=== PATIENT | male | born 1965 | race Caucasian/White ===

== ENCOUNTER 2020-09-11 23:56 | Inpatient (IN) | payer MEDICAID, SELFPAY ==
[~2020-09-11] VITALS: Ht 180.3 cm; Wt 78.5 kg
[2020-09-11 23:58] VITALS: BP 140/83
--- NOTE | 2020-09-12 00:16 | NUR ---
Patient appears to be resting comfortably in bed, RASS -3. Vital Signs within normal limits. Respirations even and unlabored. HOB up @ 30 degrees. Bed locked and in lowest position.
--- NOTE | 2020-09-12 00:20 | NUR ---
PT BOONE ALS. TAKEN TO BED 10
--- NOTE | 2020-09-12 00:22 | NUR ---
55 Y/O BIB EMS FROM HOME FOR C/O SOB & NAUSEA PT WAS NOTED WITH LABORED BREATHING, TACHYPNEA AND DEEP RESPIRATIONS. PER EMS PT WAS FOUND WITH 75% O2 SAT ON RA WAS PLACED ON NC AT 10 L WITH INEFFECTIVE RESULTS. PER EMS HE WAS THEN PLACED ON A NON-REBREATHER WITH EFFECTIVE RESULTS INCREASED SATURATION TO 85%. PT WAS ALSO NOTED WITH TACHYCARDIA HR OF 142. PT WAS PLACED ON CARDIAC MONITORING, PULSE OXIMETRY AND BP MONITORING. PMHX: DM TYPE 2. NKA
--- NOTE | 2020-09-12 00:23 | NUR ---
ERMD AT BEDSIDE EVALUATING PT.
--- NOTE | 2020-09-12 00:30 | NUR ---
18 G IV SITE ESTABLISHED TO Dalila HALL, SITE WAS PATENT, LABS & CULTURES WERE DRAWN AND GIVEN TO CASINO CAGE SUPERVISOR CHARLOTTE. FLUSHED WITH 10 ML OF 0.9% NS NO INFILTRATION OR DISCOMFORT REPORTED.
[2020-09-12] MEDS ORDERED: ZINC SULF 220 MG CAP PO ONE (00:35)
[2020-09-12] MEDS ORDERED: AZITHROMYCIN 1,000 MG in DEXTROSE 5% 500 ML IV ONE (00:35)
[2020-09-12] MEDS ORDERED: DEXAMETHASONE 10 MG/ML VIAL IVP ONE (00:35)
--- NOTE | 2020-09-12 00:35 | NUR ---
PT WAS PLACED ON A NON-REBREATHER AT 15 L OF OXYGEN, O2 SAT INCREASED TO 93%. PT STILL PRESENTS WITH TACHYPNEA & TACHYCARDIA HR OF 125. ON CARDIAC MONITORING, PULSE OXIMETRY AND BP MONITORING.
--- NOTE | 2020-09-12 00:39 | NUR ---
XRAY at bedside.
--- NOTE | 2020-09-12 00:40 | NUR ---
RSV, PCR AND INFLUEZA A & B SWAB'S COLLECTED AND WALKED TO LAB.
--- NOTE | 2020-09-12 00:43 | NUR ---
BLOOD LABS AND BLOOD CULTURES [facility] TO [facility] TEND[facility] CHIEF OPERATOR.
--- NOTE | 2020-09-12 00:43 | NUR ---
XRAY AT BEDSIDE. RT AT BEDSIDE.
[2020-09-12] MEDS ORDERED: cefTRIAXone 1,000 MG VIAL ONE ×2 (00:46→23:29)
[2020-09-12] MEDS ORDERED: INSULIN REGULAR, HUMAN 100 UNIT/ML VIAL IVP ONE (01:05)
[2020-09-12] MEDS ORDERED: SODIUM BICARBONATE 8.4% PFS 50 MEQ/50 ML SYR IVP ONE (01:05)
[2020-09-12] MEDS ORDERED: NACL 0.9% 1,000 ML IV ONE (01:05)
[2020-09-12] MEDS ORDERED: AZITHROMYCIN 500 MG INJ VIAL IV ONE (01:07)
[2020-09-12 01:19] LABS: ALBUMIN 2.8 g/dL (3.4-5.0); ANION GAP 36.5 (8-16); CREATININE 1.8 mg/dL (0.6-1.3); POTASSIUM 3.2 mmol/L (3.5-5.1); TOTAL BILIRUBIN 0.8 mg/dL (0.0-1.0)
[2020-09-12 01:20] LABS: RSV NEGATIVE (NEGATIVE)
[2020-09-12 01:24] LABS: HEMATOCRIT 45.1 % (36-52); HEMOGLOBIN 14.7 g/dL (12.0-18.0); MEAN CORPUSCULAR HEMOGLOBIN 32 pg (27-31); MEAN CORPUSCULAR HGB CONC 33 g/dL (33-37); MEAN CORPUSCULAR VOLUME 96.8 fL (80-94); PLATELET COUNT (AUTO) 391 K/uL (140-450); RED BLOOD CELL COUNT(AUTO) 4.66 MIL/uL (4.20-6.10); RED CELL DISTRIBUTION WIDTH 13.6 % (11.6-13.7); WHITE BLOOD COUNT (AUTO) 18.2 K/uL (4.8-10.8)
--- NOTE | 2020-09-12 01:25 | NUR ---
RECEIVED PHONE CALL FROM [facility] IN LAB WITH ABNORMAL LABS: BICAR 7.7, GLUCOSE 760, AND LACTIC ACID OF 3. NOTIFIED ER MD DR. MERINO NO NEW ORDERS GIVEN AT THIS TIME.
[2020-09-12 01:32] LABS: PROTHROMBIN TIME 9.8 secs (10.8-13.4)
[2020-09-12 01:36] LABS: CARBON DIOXIDE 7.7 mmol/L (21-32)
[2020-09-12 01:51] LABS: LACTATE DEHYDROGENASE 677 U/L (85-227)
[2020-09-12 01:55] LABS: C-REACTIVE PROTEIN QUANT 31.5 mg/dL (0.0-0.9)
--- NOTE | 2020-09-12 02:00 | NUR ---
20 G IV SITE ESTABLISHED TO R FOREARM, SITE WAS INTACT AND PATENT FLUSHED WITH 0.9% NS 10 ML. NO INFILTRATION, SWELLING OR REDNESS NOTED.
[2020-09-12] MEDS: BLOOD GLUCOSE MONITORING 1 DEV DEV FS SCH ×11 (03:14→23:28)
[2020-09-12] MEDS: INSULIN REGULAR, HUMAN 100 UNIT in NACL 0.9% 100 ML IV SCH ×8 (03:15→19:38)
--- NOTE | 2020-09-12 03:15 | NUR ---
GREG SWAB & URINE COLLECTED, WALKED TO LAB AT THIS TIME. EMPTIED PT'S URINAL WITH 700 ML OF CLEAR YELLOW URINE. REMAINS ON 15L OF OXYGEN VIA NON-REBREATHER. PT IS STILL TACHYPNIC RR OF 25 AND TACHYCARDIAC HR OF 107. ON BEDSIDE MONITORING. BED LOCKED AND IN LOWEST POSITION.
--- NOTE | 2020-09-12 03:16 | NUR ---
STARTED WITH INSULIN 100 UNITS AT THIS TIME. RUNNING AT 5 ML/HR FOR ACCUCHECK GREATER THAN >600 PER BLOOD GLUCOSE MACHINE. WILL CONTINUE TO MONITOR PT ON CARDAIC MONITORING, PULSE OXIMETRY AND BP MONITORING. ACCUCHECKS TO BE DONE Q2 HRS.
[2020-09-12] MEDS: NACL 0.9% 1,000 ML IV SCH ×10 (03:17→22:05)
[2020-09-12 03:18] LABS: APPEARANCE,URINE CLEAR (CLEAR); BILIRUBIN,URINE NEGATIVE (NEGATIVE); BLOOD, URINE 1+ (NEGATIVE); COLOR,URINE YELLOW (YELLOW); LEUKOCYTE ESTERASE ,URINE NEGATIVE (NEGATIVE); NITRITE, URINE NEGATIVE (NEGATIVE); PH,URINE 5.5 (5.0-9.0); UGLUCOSE 3+ (NEGATIVE)
[2020-09-12 03:51] LABS: LYMPHOCYTES % (MANUAL) 2 % (20-46); MONOCYTES % (MANUAL) 11 % (5-12)
[2020-09-12 04:03] LABS: RBC,URINE 0-5 /HPF (0-5); WBC,URINE 0-5 /HPF (0-5)
--- NOTE | 2020-09-12 04:31 | NUR ---
ACCUCHECK 556, DKA PROTOCOL OF INSULIN DRIP RUNNING AT 5 ML/HR. WILL CONTINUE TO MONITOR. WILL CHECK ACCUCHECK Q2 HRS ORDERED.
--- NOTE | 2020-09-12 04:33 | NUR ---
SEE IV SPREADSHEET FOR ACCUCHECK RESULTS.
--- NOTE | 2020-09-12 05:35 | NUR ---
PT LAYING IN BED, O2 SAT BETWEEN 90%-92% ON 15 L OF OXYGEN VIA NON-REBREATHER. INSULIN DRIP RUNNING AT 5 ML/HR. ON BEDSIDE MONITORING. BED LOCKED AND IN LOWEST POSITION. WILL CONTINUE TO MONITOR.
[2020-09-12 06:06] LABS: ANION GAP 31.4 (8-16); CARBON DIOXIDE 10.9 mmol/L (21-32); CREATININE 1.7 mg/dL (0.6-1.3)
[2020-09-12 06:18] LABS: POTASSIUM 2.3 mmol/L (3.5-5.1)
--- NOTE | 2020-09-12 06:24 | NUR ---
CALL DR. TURNER TO NOTIFY OF CRITICAL LAB VALUES: K+ 2.3, GLUCOSE 659, & LACTIC ACID OF 2.2. NO ANSWER AT THIS TIME. WILL FOLLOW UP WITH MD FOR ORDERS.
--- NOTE | 2020-09-12 06:45 | NUR ---
CALL DR. TURNER AND NOTIFIED OF ABNORMAL LABS AND GAVE NEW ORDERS FOR 80 MEQ TO BE GIVEN.
--- NOTE | 2020-09-12 07:06 | NUR ---
ACCUCHECK OF 425 PT WILL CONTINUE ON INSULIN DRIP PER DKA PROTOCCOL RUNNING AT 5ML/HR.
[2020-09-12] MEDS ORDERED: KCL 20 MEQ/WATER INJ PREMIX 200 ML IV SCH ×2 (07:07→08:00)
--- NOTE | 2020-09-12 07:15 | NUR ---
REPORT GIVEN TO CHARLOTTE LIRA FOR CONTINUITY OF CARE.
--- NOTE | 2020-09-12 07:16 | NUR ---
Report received from SORAYA Louis from [facility] for continuity of care
--- NOTE | 2020-09-12 07:28 | NUR ---
BOONE from home with c/o COVID + on 09/08, 3 days ago, now with SOB, nausea and fever. Symptoms worsening over the last 3 days. NKDA, PMH DM2 A, A, O x 4, Indonesian speaking mostly, cooperative Resp even and unlabored, states he feels better on oxygen mask In NAD, VVS except O2 sat 88-91% on O2 15 l/min non-rebreather mask Moving all ext without difficulty, HOB elevated IV #18g left AC with NS @ 250cc/hr, insulin drip @ 5 units/hr, blood sugar checks Q2 hr. Started KCL drip @ 20mEq over 2 hours, for a total of 80 mEq of potassium for K+ of 2.3 Will continue to monitor
[2020-09-12] MEDS ORDERED: DOCUSATE SODIUM 100 MG GELCAP PO PRN (08:25)
[2020-09-12] MEDS ORDERED: ZOLPIDEM 5 MG TAB PO PRN (08:25)
[2020-09-12] MEDS ORDERED: POTASSIUM CHLORIDE 40 MEQ, LIDOCAINE MPF 1% 25 MG in NACL 0.9% 250 ML IV PRN (08:25)
[2020-09-12] MEDS ORDERED: HYDROcodone/APAP 7.5/325 MG 1 TAB PO PRN (08:25)
[2020-09-12] MEDS ORDERED: ONDANSETRON 4 MG/2 ML VIAL IM/IVP PRN (08:25)
[2020-09-12] MEDS ORDERED: DEXTROSE 50% 50 ML SYR IVP PRN (08:25)
[2020-09-12] MEDS ORDERED: INSULIN REGULAR, HUMAN 100 UNIT/ML VIAL IVP SCH (08:25)
[2020-09-12] MEDS ORDERED: guaiFENesin DM 200/20 MG-10 ML 10 ML UDC PO PRN (08:25)
[2020-09-12] MEDS ORDERED: DEXT 5% / NACL 0.45% 1,000 ML IV SCH (08:25)
[2020-09-12] MEDS ORDERED: ALBUTEROL HFA MDI 90 MCG/ACTUATION 8 GM INH PRN (08:30)
--- NOTE | 2020-09-12 08:38 | NUR ---
Blood drawn by phelbotomy for T&C/screen, thyroid, A1C
--- NOTE | 2020-09-12 08:44 | NUR ---
Patient c/o thirst, drinking water, tolerating well. Patient brought [facility] DM diet for breakfast HOB elevated, states he wants to wait to eat breakfast tray
[2020-09-12] MEDS ORDERED: COMMUNICATION ORDER MC SCH (09:00)
[2020-09-12 09:19] LABS: CHOL/HDL RATIO 3.4 (1-4.5); FREE T4 (FREE THYROXINE) 1.25 ng/dL (0.76-1.46); MAGNESIUM 2.1 mg/dL (1.8-2.4); PHOSPHORUS 1.1 mg/dL (2.5-4.9); THYROID STIMULATING HORMONE 0.16 uIU/mL (0.34-3.74)
--- NOTE | 2020-09-12 09:47 | NUR ---
Patient fingerstick blood sugar 352mg/dl, mailtain insulin drip at 5 units/hr. Potassium drip @ 10 mEq/hr. NS @ 250cc/hr HOB elevated although patient scoots down and almost off the gurney, pulled up, O2 sat 86-91% on 15l/min NRB mask, patient removes, reminded to keep O2 FM on him Will continue to monitor, other VVS
[2020-09-12] MEDS: PANTOPRAZOLE 40 MG TABEC PO SCH (09:54)
[2020-09-12] MEDS: ASCORBIC ACID 500 MG TAB PO SCH (09:54)
[2020-09-12] MEDS: ZINC SULF 220 MG CAP PO SCH (09:54)
[2020-09-12] MEDS: AZITHROMYCIN 250 MG TAB PO SCH (09:54)
--- NOTE | 2020-09-12 09:59 | NUR ---
PATIENT HAS BEEN SCREENED AND CATEGORIZED MODERATE NUTRITION RISK. PATIENT WILL BE SEEN WITHIN 3-5 DAYS OF ADMISSION. 09/14/20 09/16/[address] Addendum: 09/12/20 at [address] DISREGARD NOTE ABOVE, PATIENT HAS BEEN SCREENED AND CATEGORIZED HIGH NUTRITION RISK. PATIENT WILL BE SEEN WITHIN 1-2 DAYS OF ADMISSION. 09/12/20-09/13/[address]
--- NOTE | 2020-09-12 10:06 | NUR ---
Dr. Yip admitting MD at bedside to examine patient
[2020-09-12] MEDS ORDERED: remdesivir CLINICAL MONITORING 1 EA MISC MC PRN (10:15)
--- NOTE | 2020-09-12 10:33 | NUR ---
Patient's O2 sat waveform dampened, changed for pediatric ear monitoring. O2 sat 92-93% on 15 l/min non-rebreather mask, HOB elevated. Resp even and unlabored, patient sleeping comfortably
--- NOTE | 2020-09-12 11:15 | NUR ---
Fingersticl blood sugar 267mg/dl, insulin drip decreased to 4 units/hour
[2020-09-12] MEDS ORDERED: REMDESIVIR (EUA) 200 MG in NACL 0.9% 100 ML IV SCH (12:00)
--- NOTE | 2020-09-12 13:20 | NUR ---
Fingerstick blood sugar 256 mg/dl, insulin drip decreased to 3 units/hour
--- NOTE | 2020-09-12 13:55 | NUR ---
Patient continues to pull O2 mask off. Patient placed in 2 point soft restraints for his protection. Continued to reorient patient and explain necessity of O2 face mask
[2020-09-12] MEDS ORDERED: KCL 20 MEQ/WATER INJ PREMIX 100 ML IV ONE (14:13)
--- NOTE | 2020-09-12 14:55 | NUR ---
Patient O2 sat remains in the 70's, replaced sat finger probe. O2 NC added to 15l/min non=rebreather mask. Respiratory therapy called to place high flow O2
--- NOTE | 2020-09-12 15:10 | NUR ---
Patient placed on high flow O2 by RT, O2 sat 73%
[2020-09-12 15:37] LABS: ANION GAP 23.5 (8-16); CARBON DIOXIDE 16.3 mmol/L (21-32); CREATININE 1.3 mg/dL (0.6-1.3)
[2020-09-12 15:43] LABS: POTASSIUM 2.8 mmol/L (3.5-5.1)
--- NOTE | 2020-09-12 15:45 | NUR ---
Dr. Yip paged re: decreased O2 saturations and increase resp workload
--- NOTE | 2020-09-12 15:55 | NUR ---
Dr. Yip called on his mobile phone, wants ER physician to intubate patient, Dr. Waller made aware
--- NOTE | 2020-09-12 16:02 | NUR ---
Called RT and set up for intubation
[2020-09-12] MEDS ORDERED: INTUBATION KIT MC ONE (16:07)
[2020-09-12] MEDS ORDERED: PROPOFOL 1000 MG/100 ML PREMIX 100 ML IV ONE ×4 (16:23→23:47)
--- NOTE | 2020-09-12 16:25 | NUR ---
Dr. Waller at bedside to intubate patient.
--- NOTE | 2020-09-12 16:28 | NUR ---
Meds given IVP and using glidescope Dr. Waller intubated 7.5F EET and 23cm at teeth Will start on Propofol drip
--- NOTE | 2020-09-12 16:30 | NUR ---
Ventilator settings FiO2 100%, A/C 12/min, vT 500cc, PEEP +10
--- NOTE | 2020-09-12 16:40 | NUR ---
Propofol drip started @ 5 mcg/kg/min, patient bucking the ventilator, biting the ETT
[2020-09-12 16:46] VITALS: BP 159/85
[2020-09-12 16:59] LABS: ANION GAP 16.7 (8-16); CREATININE 1.3 mg/dL (0.6-1.3)
[2020-09-12 17:18] LABS: MAGNESIUM 1.9 mg/dL (1.8-2.4); PHOSPHORUS 1.8 mg/dL (2.5-4.9)
[2020-09-12 17:39] LABS: POTASSIUM 2.7 mmol/L (3.5-5.1)
--- NOTE | 2020-09-12 17:55 | NUR ---
DAUGHTER MARTY CALLED AND UPDATED ON STATUS. SHE WAS MADE AWARE THAT PATIENT HAS BEEN INTUBATED. PT ASKING TO SPEAK TO DR. AYALA. DR. AYALA SPEAKING WITH DAUGHTER AT THIS TIME TO ANSWER ANY QUESTIONS.
--- NOTE | 2020-09-12 18:15 | NUR ---
NGT pulled back, too far in and coiled back up
[2020-09-12] MEDS: POTASSIUM CHLORIDE 40 MEQ, LIDOCAINE MPF 1% 25 MG in NACL 0.9% 250 ML IV PRN (19:10)
--- NOTE | 2020-09-12 19:16 | NUR ---
Detailed report given to Galo Navas for supervisor coal handling, questions answered. Meds and orders reviewed
--- NOTE | 2020-09-12 19:20 | NUR ---
RECIVED REPORT FROM CHARLOTTE LIRA. TRANSFER OF CARE.
--- NOTE | 2020-09-12 19:45 | NUR ---
PT RELEASED SELF FROM SOFT WRIST RESTRAINTS AND SELF EXTUBATED SELF. PT BVM PROVIDED TO PATIENT WHILE RT AND ERMD AT BEDSIDE.
--- NOTE | 2020-09-12 19:50 | NUR ---
PT REINTUBATED WITH ETT @ 23 AT THE TEETH. PT REMAINS ON CARD PAINTER. DR. TURNER MADE AWARE. PROPROFOL TITRATED NEEDED.
--- NOTE | 2020-09-12 20:00 | NUR ---
XRAY AT BEDSIDE TO CHECK PLACEMENT FOR ETT, PT O2SAT@ 92% RT REMAINS AT BEDSIDE. VSS, PT REMAINS ON PRIMARY OPERATOR.
[2020-09-12] MEDS ORDERED: NOREPINEPHRINE 4 MG/4 ML VIAL IV ONE (21:01)
[2020-09-12] MEDS ORDERED: SILVER NITRATE APPLICATOR 1 EA SWAB TP ONE (21:39)
[2020-09-12 22:00] VITALS: BP 128/62
[2020-09-12 22:22] LABS: ANION GAP 22.2 (8-16); CARBON DIOXIDE 14.9 mmol/L (21-32); CREATININE 1.4 mg/dL (0.6-1.3); POTASSIUM 3.1 mmol/L (3.5-5.1)
--- NOTE | 2020-09-12 23:15 | NUR ---
SPOKE TO MARTY GALLEGO DAUGHTER TO UPDATE HER OF FATHER'S CONDITION.
--- NOTE | 2020-09-12 23:38 | NUR ---
VERBAL CONSENT RECIVED FOR PICC LINE RECIVED OVER THE PHONE FROM .
[2020-09-12 23:52] LABS: MAGNESIUM 1.8 mg/dL (1.8-2.4); PHOSPHORUS 1.9 mg/dL (2.5-4.9)
[2020-09-13] VITALS (10 sets, daily range): BP systolic 100–139; BP diastolic 59–74
[2020-09-13 00:50] LABS: ANION GAP 21.4 (8-16); CARBON DIOXIDE 15.6 mmol/L (21-32); CREATININE 1.5 mg/dL (0.6-1.3)
[2020-09-13] MEDS: BLOOD GLUCOSE MONITORING 1 DEV DEV FS SCH ×13 (01:12→23:39)
[2020-09-13] MEDS: NACL 0.9% 1,000 ML IV SCH ×11 (01:12→22:30)
--- NOTE | 2020-09-13 01:30 | NUR ---
RT AT BEDSIDE.
[2020-09-13 01:38] LABS: PHOSPHORUS 1.3 mg/dL (2.5-4.9)
[2020-09-13 01:54] LABS: MAGNESIUM 1.8 mg/dL (1.8-2.4)
--- NOTE | 2020-09-13 02:32 | NUR ---
Albert jiménez in EDM - 09/13/20 at 0854 by [email or web address] EMPTIED 550 CC OF YELLOW URINE. TEMP 98.9 TEMPORAL ARTERY SCAN.
--- NOTE | 2020-09-13 02:32 | NUR ---
EMPTIED 550 CC OF YELLOW URINE. TEMP 98.9 TEMPORAL.
[2020-09-13] MEDS: PROPOFOL 1000 MG/100 ML PREMIX 100 ML IV PRN (03:13)
--- NOTE | 2020-09-13 04:32 | NUR ---
LAB AT BEDSIDE.
[2020-09-13 04:48] LABS: ANION GAP 17.4 (8-16); CARBON DIOXIDE 18.4 mmol/L (21-32); CREATININE 1.7 mg/dL (0.6-1.3)
[2020-09-13 04:51] LABS: POTASSIUM 2.8 mmol/L (3.5-5.1)
[2020-09-13 04:53] LABS: MAGNESIUM 1.9 mg/dL (1.8-2.4)
--- NOTE | 2020-09-13 05:00 | NUR ---
NG TUBE REPLACED BY OGT BY FRANCK LIRA. XRAY AT BEDSIDE TO CHECK PLACEMENT
[2020-09-13 05:20] LABS: PHOSPHORUS 0.6 mg/dL (2.5-4.9)
--- NOTE | 2020-09-13 05:35 | NUR ---
750 CC OF YELLOW URINE EMPTIED FROM FC. PERNIEAL CARE PERFORMED ON PATIENT. SKIN INTACT. SKIN LEFT CLEAN AND DRY.
--- NOTE | 2020-09-13 07:00 | NUR ---
RT AT BEDSIDE. ABG COLLECTED.
--- NOTE | 2020-09-13 07:15 | NUR ---
SEE [facility] IV SPREADSHEET FOR VS.
--- NOTE | 2020-09-13 07:15 | NUR ---
REPORT GIVEN TO LUCY LIRA. TRANSFER OF CARE.
--- NOTE | 2020-09-13 07:30 | NUR ---
PT ETT TO VENT, POSITIONED IN SUPINE POSITION. CLANCY BAG WITH 10CC YELLOW URINE NOTED. RAAS -3.
[2020-09-13 08:09] LABS: T4 (THYROXINE) 5.8 ug/dL (4.5-12.0)
[2020-09-13] MEDS: ASCORBIC ACID 500 MG TAB PO SCH (08:15)
[2020-09-13] MEDS: PANTOPRAZOLE 40 MG TABEC PO SCH (08:15)
[2020-09-13] MEDS: ZINC SULF 220 MG CAP PO SCH (08:16)
[2020-09-13] MEDS: AZITHROMYCIN 250 MG TAB PO SCH (08:16)
[2020-09-13 08:19] LABS: BASOPHILS % (AUTO) 0.2 % (0.0-2.0); HEMATOCRIT 34.1 % (36-52); HEMOGLOBIN 11.8 g/dL (12.0-18.0); LYMPHOCYTES # (AUTO) 0.7 K/uL (2.0-11.5); LYMPHOCYTES % (AUTO) 4.1 % (20.5-51.1); MEAN CORPUSCULAR HEMOGLOBIN 31 pg (27-31); MEAN CORPUSCULAR HGB CONC 35 g/dL (33-37); MEAN CORPUSCULAR VOLUME 90.4 fL (80-94); MONOCYTES # (AUTO) 1.4 K/uL (0.8-1.0); MONOCYTES % (AUTO) 7.6 % (1.7-9.3); NEUTROPHILS % (AUTO) 88.1 % (42.2-75.2); PLATELET COUNT (AUTO) 297 K/uL (140-450); RED BLOOD CELL COUNT(AUTO) 3.77 MIL/uL (4.20-6.10); RED CELL DISTRIBUTION WIDTH 13.3 % (11.6-13.7); WHITE BLOOD COUNT (AUTO) 18.1 K/uL (4.8-10.8)
[2020-09-13 08:48] LABS: ALBUMIN 1.8 g/dL (3.4-5.0); ANION GAP 15.2 (8-16); CARBON DIOXIDE 18.7 mmol/L (21-32); CREATININE 1.7 mg/dL (0.6-1.3); TOTAL BILIRUBIN 0.4 mg/dL (0.0-1.0)
[2020-09-13] MEDS: POTASSIUM CHLORIDE 40 MEQ, LIDOCAINE MPF 1% 25 MG in NACL 0.9% 250 ML IV PRN (09:30)
[2020-09-13 09:39] LABS: POTASSIUM 2.9 mmol/L (3.5-5.1)
[2020-09-13 09:48] LABS: PHOSPHORUS 0.7 mg/dL (2.5-4.9)
--- NOTE | 2020-09-13 10:15 | NUR ---
RECEIVED ON CARESCAPE R860 VENTILATOR PLUGGED INTO RED OUTLET TOLERATING WELL WITHOUT ADVERSE REACTIONS NOTED TO AN ENDOTRACHEAL TUBE #7.5 SECURED AT 26cm TEETH/GUM LINE WITH AN ANCHOR FAST CUFF PRESSURE CHECKED NOTED AMBU BAG AT BEDSIDE LOC SEDATED RESTING WELL GOOD CHEST RISE AND AERATION THROUGHOUT BILATERAL LUNG SPENCER AIRWAY PATENT
--- NOTE | 2020-09-13 10:21 | NUR ---
CONTACTED BLOOD BANK REGARDING CONVALESCENT PLASMA ORDER, THEY ADVISED THAT THEY ARE SHORT ON PLASMA AND WILL RECONTACT FOR UPDATES
--- NOTE | 2020-09-13 10:21 | NUR ---
ETT ADVANCED 3cm NOW @26cm TEETH/GUM. PT ON VENT, SETTINGS AC 12, VT500, PEEP 10 AND FIO2 100%. PT SEDATED NOT IN ANY DISTRESS AT THIS TIME. VENT ALARMS ON AND FUNCTIONING. ETT IS SECURE WITH ANCHOR FAST DEVICE. WILL CONTINUE TO MONITOR.
[2020-09-13] MEDS ORDERED: REMDESIVIR (EUA) 100 MG in NACL 0.9% 100 ML IV SCH (12:00)
--- NOTE | 2020-09-13 12:16 | NUR ---
TITRATED INSULIN DRIP TO 3UNITS/HR FOR BLOOD GLUCOSE OF 259
[2020-09-13 12:57] LABS: ANION GAP 16.6 (8-16); CARBON DIOXIDE 18.9 mmol/L (21-32); CREATININE 1.7 mg/dL (0.6-1.3); POTASSIUM 3.5 mmol/L (3.5-5.1)
[2020-09-13 13:07] LABS: PHOSPHORUS 0.6 mg/dL (2.5-4.9)
--- NOTE | 2020-09-13 13:56 | NUR ---
INSULIN DRIP DECREASED TO 2 UNITS/HR D/T BLOOD GLUCOSE READING OF 220
--- NOTE | 2020-09-13 14:00 | NUR ---
RECONTACTED CHANDLER REGARDING PLACEMENT OF PICC LINE. STATES SHE LEFT A MESSAGE AND WILL RECONTACT FOR UPDATES
--- NOTE | 2020-09-13 14:20 | NUR ---
SEDATED RESTING WELL EQUAL CHEST RISE GOOD AERATION THROUGHOUT BILATERAL LUNG SPENCER AIRWAY PATENT
--- NOTE | 2020-09-13 14:26 | NUR ---
09/13/20 RD RECOMMENDATIONS INITIAL ASSESSMENT COMPLETED PLEASE REFER TO NUTRITION ASSESSMENT UNDER CARE ACTIVITY FOR ESTIMATED NUTRITIONAL NEEDS. 1. RECOMMEND GLUCERNA 1.2 @ 65 ML/HR. START AT 10 ML/HR INCREASE BY 10 Q4H -PROVIDES 1560 ML OF VOLUME, 1872 KCAL AND 93 GM OF PROTEIN, WHICH MEETS 96% OF KCAL AND 100% OF PROTEIN NEEDS. 2. RECOMMEND FLUSH OF [address] PRN FOR CHANGES 4. RD TO FOLLOW-UP 2-3 DAYS, HIGH RISK JOSE MANUEL BELTRAN RD
--- NOTE | 2020-09-13 15:00 | NUR ---
MADE AWARE THAT PICC LINE NURSE WILL NOT BE AVAILABLE TODAY, DR TURNER MADE AWARE
[2020-09-13 16:52] LABS: ANION GAP 15.6 (8-16); CARBON DIOXIDE 20.8 mmol/L (21-32); CREATININE 1.8 mg/dL (0.6-1.3); POTASSIUM 3.4 mmol/L (3.5-5.1)
[2020-09-13 16:56] LABS: MAGNESIUM 2.1 mg/dL (1.8-2.4)
[2020-09-13] MEDS ORDERED: DEXTROSE 50% 50 ML SYR IVP PRN (17:45)
--- NOTE | 2020-09-13 18:32 | NUR ---
PT POSITIONED FOR COMFORT IN SUPINE POSITION. ETT TO VENT. PROPOFOL LINE CHANGED AT THIS TIME. CLANCY CATHETER BAG HANGING IN LOWEST POSITION. PT IS AFEBRILE AT THIS TIME. SKIN COOL/WARM/DRY. VSS. RASS -3. PROPOFOL RUNNING AT 80MCG.
--- NOTE | 2020-09-13 19:34 | NUR ---
NEW BOTTLE OF PROPROFOL 1000MG/100ML HUNG.
--- NOTE | 2020-09-13 19:40 | NUR ---
RECIVED REPORT FROM LUCY LIRA, CONTINUATION OF CARE.
[2020-09-13] MEDS ORDERED: cefTRIAXone 1,000 MG VIAL ONE (20:56)
[2020-09-13] MEDS: SODIUM BICARBONATE 650 MG TAB PO SCH (21:00)
--- NOTE | 2020-09-13 21:23 | NUR ---
RT AT BEDSIDE. SUCTION PROVIDED. THIN WHITE SECRETIONS NOTED.
[2020-09-13] MEDS: SODIUM PHOS / POTASSIUM PHOS 1 PKT PDR PO SCH (21:30)
--- NOTE | 2020-09-13 21:34 | NUR ---
NEW BOTTLE OF PROPROFOL 1000MG/100ML HUNG.
--- NOTE | 2020-09-13 23:13 | NUR ---
SPOKE WITH DAUGHTER MARTY ABOUT PATIENT CONDITION.
--- NOTE | 2020-09-13 23:48 | NUR ---
NEW BOTTLE OF PROPROFOL 1000MG/100ML HUNG.
--- NOTE | 2020-09-14 00:16 | NUR ---
PRENIEAL CARE PERFORMED. NO BM NOTED. SKIN INTACT. SKIN LEFT CLEAN AND DRY. 250CC EMPITED FROM FC. FC REMAINS PATIENT.
[2020-09-14] MEDS: BLOOD GLUCOSE MONITORING 1 DEV DEV FS SCH ×16 (01:00→23:00)
--- NOTE | 2020-09-14 01:12 | NUR ---
PT REPOSITIONED IN BED. PT REAINS ON EXCHANGE FLOOR MANAGER .RASS -3. PT REMAINS ON ETT TO VENT. PT REMAINS ON EXCHANGE FLOOR MANAGER. VSS. BED IS LOCKED AND IN LOWEST POSITON.
[2020-09-14] MEDS: NACL 0.9% 1,000 ML IV SCH ×4 (02:40→14:07)
[2020-09-14] MEDS: INSULIN LISPRO SLIDING SCALE 100 UNITS/ML VIAL SUBQ PRN ×7 (04:10→19:07)
[2020-09-14] MEDS: INSULIN REGULAR, HUMAN 100 UNIT in NACL 0.9% 100 ML IV SCH ×2 (05:00)
[2020-09-14] MEDS: SODIUM PHOS / POTASSIUM PHOS 1 PKT PDR PO SCH ×3 (05:00→20:38)
--- NOTE | 2020-09-14 05:00 | NUR ---
ACCUCHECK @ 288 PATIENT INSULIN DRIP INCREASED AT 3U/HR.
--- NOTE | 2020-09-14 05:30 | NUR ---
PRENIEAL CARE PERFORMED. NO BM NOTED. SKIN INTACT. SKIN LEFT CLEAN AND DRY. PT REMAINS ON HIGHWAY ENGINEERING TECHNICIAN. VSS. BED IS LOCKED AND IN LOWEST POSITION.
--- NOTE | 2020-09-14 06:31 | NUR ---
PATIENT HAS TEMPORAL TEMP OF 101.1. PRN TYLENOL 650MG TO BE GIVEN VIA OG TUBE. OGT PLACEMENT CHECKED PRIOR TO ADMINISTERING MEDICATION.
[2020-09-14] MEDS: ACETAMINOPHEN 325 MG TAB PO PRN ×2 (06:33→12:07)
--- NOTE | 2020-09-14 07:30 | NUR ---
GAVE REPORT TO SELVIN LIRA. TRANSFER OF CARE.
--- NOTE | 2020-09-14 07:49 | NUR ---
Report received from SORAYA Handy, transfered care at this time.
--- NOTE | 2020-09-14 07:55 | NUR ---
Pt HOB elevated, RASS -3 repositioned for comfort, VSS, will continue to monitor.
--- NOTE | 2020-09-14 08:00 | NUR ---
Temperature re-checked, temporal at 99.9F.
[2020-09-14] MEDS: PANTOPRAZOLE 40 MG TABEC PO SCH (08:21)
[2020-09-14 09:00] VITALS: BP 128/72
[2020-09-14 09:12] LABS: HEMATOCRIT 32.1 % (36-52); HEMOGLOBIN 11.2 g/dL (12.0-18.0); MEAN CORPUSCULAR HEMOGLOBIN 32 pg (27-31); MEAN CORPUSCULAR HGB CONC 35 g/dL (33-37); PLATELET COUNT (AUTO) 266 K/uL (140-450); RED BLOOD CELL COUNT(AUTO) 3.53 MIL/uL (4.20-6.10); RED CELL DISTRIBUTION WIDTH 13.8 % (11.6-13.7); WHITE BLOOD COUNT (AUTO) 17.9 K/uL (4.8-10.8)
[2020-09-14] MEDS: PROPOFOL 1000 MG/100 ML PREMIX 100 ML IV PRN ×4 (09:24→17:10)
[2020-09-14] MEDS: INSULIN LANTUS 100 UNITS/ML 10 ML VIAL SUBQ SCH (09:30)
[2020-09-14] MEDS: ASCORBIC ACID 500 MG TAB PO SCH (09:30)
[2020-09-14] MEDS: PANTOPRAZOLE 40 MG INJ VIAL IVP SCH (09:30)
[2020-09-14] MEDS: ZINC SULF 220 MG CAP PO SCH (09:30)
[2020-09-14] MEDS: SODIUM BICARBONATE 650 MG TAB PO SCH ×2 (09:30→20:38)
[2020-09-14] MEDS: AZITHROMYCIN 250 MG TAB PO SCH (09:30)
[2020-09-14] MEDS ORDERED: CRUSHER, PILL MC ONE (09:40)
[2020-09-14 09:45] LABS: ANION GAP 13.1 (8-16); CREATININE 1.7 mg/dL (0.6-1.3); POTASSIUM 3.1 mmol/L (3.5-5.1)
[2020-09-14 10:36] LABS: BASOPHILS % (MANUAL) 0 % (0-2); EOSINOPHILS % (MANUAL) 0 % (0-4); LYMPHOCYTES % (MANUAL) 4 % (20-46); MONOCYTES % (MANUAL) 6 % (5-12)
[2020-09-14 11:14] LABS: ALBUMIN 1.7 g/dL (3.4-5.0); ANION GAP 18.5 (8-16); CARBON DIOXIDE 18.6 mmol/L (21-32); CREATININE 1.7 mg/dL (0.6-1.3); POTASSIUM 3.1 mmol/L (3.5-5.1); TOTAL BILIRUBIN 0.4 mg/dL (0.0-1.0)
[2020-09-14 12:00] VITALS: BP 128/72
--- NOTE | 2020-09-14 12:07 | NUR ---
Pt temperature 100.2F, given tynenol 650mg crushed into OGT per MD order.
--- NOTE | 2020-09-14 13:32 | NUR ---
SPOKE WITH DAUGHTER MARTY ABOUT PATIENT CONDITION.
[2020-09-14 15:00] VITALS: BP 128/72
--- NOTE | 2020-09-14 15:11 | NUR ---
Dr. Devonte CAICEDO at pt bedside. Ordered to d/c NS 0.9% 250mL/hr and changed to NS 0.45% 250mL/hr.
--- NOTE | 2020-09-14 15:35 | NUR ---
Pt has visible equal rise and fall of chest, RASS -3, VSS, will continue to monitor.
[2020-09-14] MEDS: POTASSIUM CHLORIDE IV SCH ×2 (15:45→18:20)
[2020-09-14] MEDS: NACL 0.9% IV SCH ×2 (15:45→18:20)
[2020-09-14] MEDS: NACL 0.45% 1,000 ML IV SCH ×2 (16:18→19:22)
[2020-09-14] MEDS: NOREPINEPHRINE 4 MG in DEXTROSE 5% 250 ML IV PRN (16:53)
[2020-09-14] MEDS ORDERED: POTASSIUM CHL 40 MEQ/ D5-1/2NS 0 ML IV ONE (16:57)
--- NOTE | 2020-09-14 17:14 | NUR ---
Pt vitals on IV spreadsheet for q 15 minutes.
[2020-09-14] MEDS ORDERED: KCL 20 MEQ/WATER INJ PREMIX 100 ML IV ONE (17:16)
[2020-09-14 18:08] VITALS: BP 128/72
--- NOTE | 2020-09-14 19:15 | NUR ---
Harris catheter emptied, 900mL of dark yelow with light sediment.
--- NOTE | 2020-09-14 19:26 | NUR ---
Gave report to SORAYA Handy, transfered care at this time.
--- NOTE | 2020-09-14 19:32 | NUR ---
RECIVED REPORT FROM SELVIN LIRA. CONTINUATION OF CARE.
--- NOTE | 2020-09-14 19:45 | NUR ---
RECIVED PATIENT RASS-3. EET TO VENT. 25 AT THE TEETH. PT PERRLA 3MM. PT SKIN IS CLEAN DRY AND INTACT. PT FC IN PLACE AND YELLOW URINE RUNNING. PATIENT HOB UP 30 DEGREES. PATIENT VENT SETTINGS AC/VC PEEP:12, RATE:16, FiO2 100%. PATIENT PROPROFOL REMAINS AT 80MCG/KG/HR AND LEVOPHED 2MCG/MIN. IV SITES: 18G L EJ, 18 L AC, AND 18 L FA ALL REMAIN PATENT. OG TUBE PLACEMENT ASSESSED VIA AUSCULTATION, NO GASTRIC RESIDUAL NOTEED AT THIS TIME. PATIENT REMAINS ON NATURAL RESOURCES INSTRUCTOR. VSS AT THIS TIME. BED IS LOCKED AND IN LOWEST POSITION.
[2020-09-14 20:07] VITALS: BP 118/67
[2020-09-14] MEDS ORDERED: cefTRIAXone 1,000 MG VIAL ONE (20:13)
--- NOTE | 2020-09-14 21:36 | NUR ---
RECIVED PATIENT RASS-3. PATIENT REPOSITIONED IN BED. PATIENT REMAINS ON PRIEST, VSS. PATIENT SKIN LEFT CLEAN AND DRY. FC IN PLACE.
[2020-09-14 22:45] VITALS: BP 121/70
--- NOTE | 2020-09-14 23:17 | NUR ---
ABG DRAWN EARLY DUE TO MISCOMMUNICATION W/ RESULTS OF PH 7.197 CO2 56.0 PO2 334.7 HCO3 21.52 BE -7.1 DR ZELDA SMITH PENDING CALL BACK Addendum: 09/14/20 at 2351 by Lucas Doherty Jr RT DR BARBA RETURNED CALL AND REQUESTED TO INCREASE TITRATE RR TO 18
--- NOTE | 2020-09-14 23:19 | NUR ---
SPOKE WITH DAUGHTER MARTY LIRA FOR UPDATE ON PATIENT.
--- NOTE | 2020-09-14 23:50 | NUR ---
RT AT BEDSIDE AND GAVE NEW VENT SETTINGS OF FiO2@ 50% AND RR: AT 18. PT O2 SATURATION @ 97%. PT REPOSITIONED TO LEFT SIDE.
[2020-09-15] MEDS: NACL 0.45% 1,000 ML IV SCH ×6 (00:19→20:01)
[2020-09-15] MEDS: INSULIN LISPRO SLIDING SCALE 100 UNITS/ML VIAL SUBQ PRN ×7 (01:15→22:51)
[2020-09-15] MEDS: BLOOD GLUCOSE MONITORING 1 DEV DEV FS SCH ×12 (01:56→21:39)
--- NOTE | 2020-09-15 02:00 | NUR ---
RECIVED PATIENT RASS-3. PATIENT REPOSITIONED TO RIGHT SIDE IN BED. PATIENT REMAINS ON ACTUARY, VSS. PATIENT SKIN CLEAN, DRY, AND INTACT. FC IN PLACE. PATIENT ORAL CARE PROVIDED.
--- NOTE | 2020-09-15 04:12 | NUR ---
RECIVED PATIENT RASS-3. PATIENT REPOSITIONED TO LEFT SIDE IN BED. PATIENT REMAINS ON YARN PACKER, VSS. PATIENT SKIN CLEAN, DRY, AND INTACT. FC IN PLACE. AFEBILE.
[2020-09-15] MEDS: SODIUM PHOS / POTASSIUM PHOS 1 PKT PDR PO SCH ×2 (05:00→13:52)
[2020-09-15 05:50] VITALS: BP 139/80
--- NOTE | 2020-09-15 05:55 | NUR ---
FIO2 CURRENTLY 40% PT WAS TITRATED TOLERATED THROUGHOUT NIGHT
--- NOTE | 2020-09-15 06:03 | NUR ---
RECIVED PATIENT RASS-3. PATIENT REPOSITIONED TO LEFT SIDE IN BED. PATIENT REMAINS ON WOODEN BARREL MECHANIC, VSS. PATIENT SKIN CLEAN, DRY, AND INTACT. FC IN PLACE. PATIENT ORAL CARE PROVIDED.
--- NOTE | 2020-09-15 07:12 | NUR ---
1500CC EMPTIED OF FC. URINE LISA IN COLOR.
--- NOTE | 2020-09-15 07:29 | NUR ---
REPORT GIVEN TO ALKA LIRA. TRANSFER OF CARE.
[2020-09-15 08:20] VITALS: BP 135/80
[2020-09-15] MEDS: PANTOPRAZOLE 40 MG TABEC PO SCH (08:39)
[2020-09-15] MEDS: PANTOPRAZOLE 40 MG INJ VIAL IVP SCH (08:52)
[2020-09-15] MEDS: ASCORBIC ACID 500 MG TAB PO SCH (08:53)
[2020-09-15] MEDS: ZINC SULF 220 MG CAP PO SCH (08:53)
[2020-09-15] MEDS: SODIUM BICARBONATE 650 MG TAB PO SCH ×2 (08:53→21:53)
[2020-09-15] MEDS: AZITHROMYCIN 250 MG TAB PO SCH (08:53)
[2020-09-15] MEDS: INSULIN LANTUS 100 UNITS/ML 10 ML VIAL SUBQ SCH (08:54)
--- NOTE | 2020-09-15 09:56 | NUR ---
CALLED DR TURNER TO REPORT ABG RESULTS. PENDING CALL BACK.
--- NOTE | 2020-09-15 10:34 | NUR ---
PT RESTING WITH EYES CLOSED, BREATHING EVEN AND UNLABORED. NO DISTRESS NOTED. PT REMAINS ON MECHANICAL VENTILATION, PROPOFOL AND LEVOPHED DRIP
--- NOTE | 2020-09-15 10:40 | NUR ---
CALLED BLOOD BANK, STATE THEY WILL GET BACK TO ME REGARDING CONVALESCENT BLOOD THAT IS ORDERED
[2020-09-15 11:10] VITALS: BP 122/69
[2020-09-15 11:21] LABS: BASOPHILS % (AUTO) 0.1 % (0.0-2.0); HEMATOCRIT 32.1 % (36-52); LYMPHOCYTES # (AUTO) 0.9 K/uL (2.0-11.5); LYMPHOCYTES % (AUTO) 4.2 % (20.5-51.1); MEAN CORPUSCULAR HEMOGLOBIN 31 pg (27-31); MEAN CORPUSCULAR HGB CONC 34 g/dL (33-37); MEAN CORPUSCULAR VOLUME 91.1 fL (80-94); MONOCYTES # (AUTO) 1.5 K/uL (0.8-1.0); MONOCYTES % (AUTO) 7.3 % (1.7-9.3); NEUTROPHILS # (AUTO) 18.4 K/uL (1.8-7.7); NEUTROPHILS % (AUTO) 88.4 % (42.2-75.2); PLATELET COUNT (AUTO) 258 K/uL (140-450); RED BLOOD CELL COUNT(AUTO) 3.53 MIL/uL (4.20-6.10); RED CELL DISTRIBUTION WIDTH 13.9 % (11.6-13.7); WHITE BLOOD COUNT (AUTO) 20.8 K/uL (4.8-10.8)
[2020-09-15 11:42] LABS: ALBUMIN 1.6 g/dL (3.4-5.0); ANION GAP 14.9 (8-16); CARBON DIOXIDE 22.4 mmol/L (21-32); CREATININE 1.4 mg/dL (0.6-1.3); POTASSIUM 3.3 mmol/L (3.5-5.1); TOTAL BILIRUBIN 0.5 mg/dL (0.0-1.0)
--- NOTE | 2020-09-15 15:02 | NUR ---
DR. TURNER APPROVED RD RECOMMENDATIONS FOR TUBE FEEDING WITH GLUCERNA 1.2 @ 65 ML/HR.
[2020-09-15 15:10] VITALS: BP 118/70
--- NOTE | 2020-09-15 15:37 | NUR ---
09/15/20 RD FOLLOW UP COMPLETED PLEASE REFER TO NUTRITION ASSESSMENT UNDER CARE ACTIVITY FOR ESTIMATED NUTRITIONAL NEEDS. 1. RECOMMEND GLUCERNA 1.2 @ 65 ML/HR. START AT 10 ML/HR INCREASE BY 10 Q4H -PROVIDES 1560 ML OF VOLUME, 1872 KCAL AND 93 GM OF PROTEIN, WHICH MEETS 96% OF KCAL AND 100% OF PROTEIN NEEDS. 2. RECOMMEND FLUSH OF [address] PRN FOR CHANGES 4. RD TO FOLLOW-UP 2-3 DAYS, HIGH RISK JOSE MANUEL BELTRAN RD
--- NOTE | 2020-09-15 16:04 | NUR ---
PER PICC LINE NURSE, PICC INSERTION SUCCESSFUL AFTER XRAY READING. OKAY TO USE. LEVOPHED AND PROPOFOL SWITCHED TO PICC LINE
--- NOTE | 2020-09-15 16:46 | NUR ---
PER DR TURNER TO CHANGE 0.45 NACL RATE FROM 250 TO 60ML/HR
--- NOTE | 2020-09-15 17:10 | NUR ---
TUBE FEEDING STARTED AT 60ML/HR ORDERED
--- NOTE | 2020-09-15 19:32 | NUR ---
REPORT GIVEN TO JOCE LIRA, TRANSFER OF CARE AT THIS TIME
--- NOTE | 2020-09-15 19:32 | NUR ---
950ML OF DARK YELLOW URINE DRAINED FROM CLANCY CATHETER
[2020-09-15 19:47] VITALS: BP 128/73
--- NOTE | 2020-09-15 19:50 | NUR ---
REPORT RECEIVED FROM ALKA LIRA
--- NOTE | 2020-09-15 20:00 | NUR ---
PT REMAINS INTUBATED WITH DRIPS OF PROPROFAL AND LEVAPHED INFUSING. RASS REMAINS AT -3. TUBE FEEDING CONTINUES TO INFUSE. PT REMAINS ON BEDSIDE MONITOR
--- NOTE | 2020-09-15 20:10 | NUR ---
PT REPOSITIONED IN BED. BED IN LOWEST POSITION AND SIDERAIL UP X 2 FOR PT SAFETY. DRIPS CONTINUE INFUSING, RASS REMAINS AT -3. PT REMAINS ON VENT AND BEDSIDE MONITOR.
[2020-09-15] MEDS ORDERED: cefTRIAXone 1,000 MG VIAL ONE (21:31)
--- NOTE | 2020-09-15 22:10 | NUR ---
PT REPOSITIONED IN BED TO ALLEVIATE ANY SKIN BREAKDOWN
[2020-09-15 23:13] VITALS: BP 125/71
--- NOTE | 2020-09-16 01:19 | NUR ---
SPOKE WITH PT'S DAUGHTER, MARTY AT [phone], PROVIDED HER WITH AN UPDATE ON FATHER'S STATUS. SHE WOULD LIKE DR TURNER TO CONTACT THEM SO THEY CAN FIND OUT THE PLAN FOR HER FATHER'S CARE. WILL CONTACT DR TURNER IN THE AM. PT RESPOSITIIONED IN BED TO ALLEVIATE PRESSURE AND PREVENT SKIN BREAK DOWN.
--- NOTE | 2020-09-16 01:24 | NUR ---
Albert jiménez in ED - 09/16/20 at 0126 by [email or web address] PT REPOSITIONED IN BED TO ALLEVIATE ANY SKIN BREAKDOWN
[2020-09-16] MEDS: PROPOFOL 1000 MG/100 ML PREMIX 100 ML IV PRN ×8 (01:34→18:12)
--- NOTE | 2020-09-16 03:10 | NUR ---
PT REMAINS ON MONITOR AND VENT, RASS -3. DRIPS CONTINUE INFUSING. RESPIRATIONS REMAIN REGULAR EVEN AND UNLABORED. WILL CONTINUE TO MONITOR
--- NOTE | 2020-09-16 04:15 | NUR ---
PT RESPOSITIONED IN BED.
--- NOTE | 2020-09-16 04:26 | NUR ---
PT PROVIDED WITH ORAL CARE. F/C EMPTIED, 425ML DARK CLEAR URINE.
--- NOTE | 2020-09-16 05:00 | NUR ---
PT HAVE BM, SOFT RUNNY STOOL, LINENS CHANGED. PT HAS BLISTERS TO SACRAL AREA, PT TO BE PLACED IN PRONE POSITION WITH ASSITANCE BY RT.
--- NOTE | 2020-09-16 05:40 | NUR ---
PT PLACED IN PRONE POSITION. PT TOLERATING WELL. DRIPS CONTINUE TO INFUSE, RASS -3. PT REMAINS ON BEDSIDE MONITOR.
--- NOTE | 2020-09-16 06:10 | NUR ---
CONTACTED DR TURNER REGARDING PT'S DAUGHTER WANTING AN UPDATE ON HER FATHER'S STATUS. PROVIDED HIM WITH MARTY'S NAME AND PHONE NUMBER ([phone])
--- NOTE | 2020-09-16 07:24 | NUR ---
Pt report given to CHARLOTTE LIRA. Transfer of care at this time.
--- NOTE | 2020-09-16 07:25 | NUR ---
Received report from SORAYA Ruiz from cage shift manager for continuity of care
--- NOTE | 2020-09-16 07:51 | NUR ---
BOONE from home with c/o COVID + on 09/08, 8 days ago, now with SOB, nausea and fever. Symptoms worsening over the last 3 days prior to admission. NKDA, PMH DM2 Patient is intubated on [facility] ventilator, [place] Islander speaking mostly, patient sedated with Propofol Resp even and unlabored, resp rate 19-24/min, vent settings AC 18/min, vT 500, 40% FiO2, PEEP +12, patient is placed prone by RT for skin pressure relief. In NAD, VVS except O2 sat 95-97%. OG tube, tube feedings stopped due to position, HOB elevated slightly IV #18g left AC and #18g right AC, PICC right upper arm 0.45NS @ 60cc/hr Propofol drip @ 80mcg/kg/min for sedation, NorEpi drip @ 1mcg/min for B/P support Blood sugar checks AC and HS. Awaiting ICU admission, no beds available Will continue to monitor
[2020-09-16] MEDS: BLOOD GLUCOSE MONITORING 1 DEV DEV FS SCH ×4 (08:15→21:13)
--- NOTE | 2020-09-16 08:25 | NUR ---
New bottle of Propofol hung and 1000cc 0.45NS @ 60cc/hr
--- NOTE | 2020-09-16 08:30 | NUR ---
Propofol decreased to 70 mcg/kg/min via PICC line. Will continue to monitor for sedation
[2020-09-16 08:45] VITALS: BP 139/63
--- NOTE | 2020-09-16 08:45 | NUR ---
RECEIVED ON A [employer] R860 VENTILATOR PLUGGED INTO RED OUTLET TOLERATING WELL WITHOUT ADVERSE REACTIONS NOTED TO AN ENDOTRACHEAL TUBE #7.5 SECURED AT 25cm TEETH/GUM LINE WITH AN ANCHOR FAST CUFF PRESSURE CHECKED NOTED AMBU BAG AT BEDSIDE LOC SEDATED RESTING WELL GOOD CHEST RISE ENDOTRACHEAL SUCTION FOR COPIOUS THICK YELLOW SECRETIONS AIRWAY PATENT
[2020-09-16] MEDS: NACL 0.45% 1,000 ML IV SCH (08:56)
[2020-09-16] MEDS: SODIUM BICARBONATE 650 MG TAB PO SCH (09:00)
[2020-09-16] MEDS: PANTOPRAZOLE 40 MG TABEC PO SCH (09:00)
[2020-09-16] MEDS: PANTOPRAZOLE 40 MG INJ VIAL IVP SCH (09:00)
[2020-09-16] MEDS: ASCORBIC ACID 500 MG TAB PO SCH (10:17)
[2020-09-16] MEDS: AZITHROMYCIN 250 MG TAB PO SCH (10:17)
[2020-09-16] MEDS: ZINC SULF 220 MG CAP PO SCH (10:17)
[2020-09-16] MEDS: INSULIN LANTUS 100 UNITS/ML 10 ML VIAL SUBQ SCH (10:18)
--- NOTE | 2020-09-16 10:41 | NUR ---
Patient is intubated on [facility] ventilator, [place] speaking mostly, patient sedated with Propofol drip Resp even and unlabored, resp rate 19-24/min, vent settings AC 18/min, vT 500, 40% FiO2, PEEP +12, patient remains in prone positioned by RT for skin pressure relief. In NAD, VVS except O2 sat 95-97%. OG tube, tube feedings stopped due to position, HOB elevated slightly IV #18g left AC and #18g left FA with 0.45NS @ 60cc/hr, PICC right upper arm Propofol drip @ 70mcg/kg/min for sedation, NorEpi drip @ 1mcg/min for B/P support Blood sugar checks AC and HS. Awaiting ICU admission, no beds available Will continue to monitor
--- NOTE | 2020-09-16 11:50 | NUR ---
Lab called that blood drawn for CMP cannot be processed in house because patient's blood is "lypemic" and needs to be sent out for analysis
--- NOTE | 2020-09-16 12:31 | NUR ---
DISCHARGE PLANNING: THIS IS A 55 Y/O MALE PATIENT FROM HOME, WHO CAME IN DUE TO WORSENING SOB. PAST MEDICAL HISTORY INCLUDE INSULIN DEPENDENT DIABETES. INITIAL DIAGNOSIS OF COVID POSITIVE, DKA. RALLY INTUBATED TO VENT, FIO2 40%, PEEP 12, O2 SAT 97%. SEDATED WITH PROPOFOL. ON ROCEPHIN, AZITHROMYCIN, DECADRON. LATEST CXR SHOWED NO SIGNIFICANT CHANGE OF BILATERAL AIRSPACE CONSOLIDATIONS. NEPHRO, ID AND PULMO CONSULTS IN PLACE. DC PLAN PENDING ON PATIENT'S RESPONSE TO TREATMENT. Addendum: 09/24/20 at 1641 by Jesenia Hebert CM RECEIVED A CALL FROM GEGE BUI STATING THAT THERE IS A FAMILY MEMBER AT THE LOBBY FOR A FAMILY MEETING WITH A DOCTOR. CONTACTED DR. TURNER IF HE SET UP ANYTHING, NO ANSWER. LEFT MESSAGE. REQUESTED HAO FROM [facility] TO GET THE PHONE NUMBER OF THE FAMILY AND I WILL CALL THEM BACK ONCE I HEARD BACK FROM THE DOCTOR. PROVIDED THE NUMBER TO ENMA BARBOZA TO FOLLOW UP. Addendum: 09/29/20 at 1218 by Jesenia Hebert CM REMAINS ORALLY INTUBATED TO VENT, FIO2 35%, PEEP 5, O2 SAT 98%. ON ZOSYN AND VANCOMYCIN. PER NEPHRO - NO REQUIREMENT FOR HAND WORKER AT THIS TIME. FOR TRACH AND PEG PLACEMENT TODAY WITH DR. GOMES. Addendum: 09/30/20 at 1114 by Jesenia Hebert CM RECEIVED AN ORDER FOR LTAC EVALUATION. CONTACTED PATIENT'S DAUGHTER MARTY AT [phone] TO DISCUSS DC PLANNING AND IS IN AGREEMENT. I ALSO FOLLOWED UP WITH HER IF [facility] WAS ABLE TO GET A HOLD OF HER. SHE STATED THEY LEFT HER MESSAGES BUT UNABLE TO FOLLOW UP BECAUSE OF WHAT IS GOING ON. SHE REQUESTED IF THE DOCTOR CAN CALL HER FOR UPDATES. DR. MOSQUEDA MADE AWARE. Addendum: 09/30/20 at 1154 by Jesenia Hebert CM REFERRAL SENT TO [facility]. RECEIVED A MESSAGE FROM [facility], STATING THAT THEY ARE NOT ABLE TO ACCEPT TRACH TO [facility]. DR. MOSQUEDA MADE AWARE. Addendum: 10/01/20 at 1358 by Jesenia Hebert RECEIVED AN ORDER FOR SUB ACUTE PLACEMENT. CONTACTED PATIENT'S DAUGHTER MARTY, NO ANSWER. LEFT MESSAGE WILL FOLLOW. ORDER SENT TO [facility]. WILL FOLLOW UP. Addendum: 10/03/20 at 1701 by Yocasta Cantu RN DC PLANNING: AWAITING FOR THE PCR RESULT FOR PLACEMENT. CHECKED WITH THE LAB ,RESULT WILL BE IN TONIGHT OR TOMORROW. CM TO FOLLOW Addendum: 10/04/20 at 1053 by Jesenia Hebert CM FOLLOWED UP COVID PCR RESULTS WITH LAB. PER [facility] IT IS STILL PENDING AND HAVE NOT RECEIVE ANY NEW FAXES. WILL FOLLOW UP. Addendum: 10/04/20 at 1217 by Jesenia Hebert CM PER MARCELLO THEY ARE ABLE TO TAKE PATIENT ONCE COVID PCR IS NEGATIVE. CHARGE NURSE MADE AWARE. Addendum: 10/07/20 at 0921 by Kiersten Wilkerson CM ÁNGEL DIFFERENTIAL REPAIRER: PATIENTS PCR CAME BACK NEGATIVE, FAXED RESULTS WITH UPDATED CLINICALS TO [facility]. Addendum: 10/07/20 at 1043 by Kiersten Wilkerson CM ÁNGEL GARVINNER: PATIENT HAS BEEN ACCEPTED AT [facility] PER ANA ROSA AT [facility] PATIENT CAN GO TO ROOM 24-A UNDER DR. TURNER. SET UP WILL CALL TRANSPORTATION WITH [facility] [phone] Addendum: 10/07/20 at 1202 by Kiersten Wilkerson CM DC DIFFERENTIAL REPAIRER: ACTIVATED WILL CALL TRANSPORTATION WITH [facility] [phone] FOR 3:00 PM. Addendum: 10/07/20 at 1210 by Kiersten Wilkerson CM DC DIFFERENTIAL REPAIRER: SPOKE TO PATIENTS DAUGHTER MARTY GALLEGO [phone] TO DISCUSS DISCHARGE TO [facility]. SHE STATED THAT SHE WOULD LIKE TO SPEAK TO THE ASSIGNED CM FIRST BECAUSE THEY ARE TRYING TO GET HIM INTO [facility].
--- NOTE | 2020-09-16 12:45 | NUR ---
Propofol drip decreased to 65 mcg/kg/min. Due to lab stating patient's blood was lipemia Will continue to monitor for sedation
--- NOTE | 2020-09-16 13:01 | NUR ---
Patient's daughter Radha called, updated re: care and progress Dropped off patient's phone storeroom keeper, asked me to charge his phone. Reminded her that patient is intubated and would not be using phone any time soon, understood but would like his phone charged
[2020-09-16 13:33] VITALS: BP 135/63
--- NOTE | 2020-09-16 13:33 | NUR ---
PRONE POSITION TOLERATING WELL NO DISTRESS NOTED GOOD CHEST RISE ENDOTRACHEAL SUCTION FOR LARGE THICK YELLOW SECRETIONS WITH FEW SMALL COTS AIRWAY PATENT
[2020-09-16] MEDS: INSULIN LISPRO SLIDING SCALE 100 UNITS/ML VIAL SUBQ PRN ×3 (13:41→21:39)
--- NOTE | 2020-09-16 14:00 | NUR ---
New bottle of Propofol hung, Propofol drip decreased to 60 mcg/kg/min. Due to lab stating patient's blood was lipemia Will continue to monitor for sedation
--- NOTE | 2020-09-16 14:43 | NUR ---
Patient is intubated on [facility] ventilator, Gibraltarian speaking mostly, patient sedated with Propofol drip Resp even and unlabored, resp rate 19-24/min, vent settings AC 18/min, vT 500, 40% FiO2, PEEP +12, patient remains in prone position, positioned by RT for skin pressure relief. In NAD, VVS except O2 sat 95-97%. OG tube, tube feedings stopped due to position, HOB elevated slightly IV #18g left AC and #18g left FA with 0.45NS @ 60cc/hr, PICC right upper arm Propofol drip @ 60mcg/kg/min for sedation, NorEpi drip @ 1mcg/min for B/P support Blood sugar checks AC and HS. Awaiting ICU admission, no beds available Will continue to monitor
--- NOTE | 2020-09-16 15:08 | NUR ---
Patient's Propofol drip alarming high pressure alarm, infusing via PICC. Changed to 2nd PICC port, will continue to monitor
--- NOTE | 2020-09-16 15:19 | NUR ---
Patient's Propofol drip alarming "high pressure" alarm, infusing via 2nd port of PICC line right upper arm. Changed to 2nd #16g left AC IV, will continue to monitor
[2020-09-16 16:47] LABS: ANION GAP 18.5 (8-16); POTASSIUM 3.5 mmol/L (3.5-5.1)
[2020-09-16 16:48] LABS: CREATININE 1.3 mg/dL (0.6-1.3)
[2020-09-16 16:49] LABS: TOTAL BILIRUBIN 0.6 mg/dL (0.0-1.0)
--- NOTE | 2020-09-16 16:49 | NUR ---
Called RT to assist with patient positioning
[2020-09-16 16:50] LABS: ALBUMIN 2.4 g/dL (3.4-5.0)
--- NOTE | 2020-09-16 16:57 | NUR ---
Called Pharmacy for another Levophed drip
[2020-09-16 17:40] VITALS: BP 135/61
--- NOTE | 2020-09-16 17:41 | NUR ---
Patient placed supine, suctioned, linens changed, HOB elevated IV drips continue, f/c draining well
--- NOTE | 2020-09-16 17:48 | NUR ---
PATIENT SUCCESSFULLY PLACED IN SUPINE POSITION WITHOUT ADVERSE REACTIONS NOTED
[2020-09-16] MEDS: NOREPINEPHRINE 4 MG in DEXTROSE 5% 250 ML IV PRN (18:30)
--- NOTE | 2020-09-16 19:22 | NUR ---
Detailed report given to SORAAY Ruiz for production supervisor off shift. Questions answered, meds and orders reviewed
--- NOTE | 2020-09-16 19:54 | NUR ---
REPORTED RECEIVED FROM CHARLOTTE LIRA
--- NOTE | 2020-09-16 20:10 | NUR ---
PT LAYING SUPINE, REMAINS INTUBATED WITH PROPROFAL DRIP @ 60 MCG AND LEVAPHED @ 1 MCG. PT REMAINS ON BEDSIDE MONITOR WITH B/P OF 120/63, P 82, 97%, R 24, AND 98.1. TUBE FEEDING RESTARTED VIA OG TUBE, HANGING TO GRAVITY. F/C CONTINUES TO DRAIN CLEAR DARK URINE.
[2020-09-16 20:36] VITALS: BP 116/64
--- NOTE | 2020-09-16 21:30 | NUR ---
PT REMAINS INTUBATED WITH DRIPS OF PROPROFAL AND LEVAPHED INFUSING. RASS REMAINS AT -3. TUBE FEEDING CONTINUES TO INFUSE. PT REMAINS ON BEDSIDE MONITOR
[2020-09-16 21:39] VITALS: BP 127/64
[2020-09-16] MEDS ORDERED: cefTRIAXone 1,000 MG VIAL ONE (22:05)
--- NOTE | 2020-09-16 22:24 | NUR ---
PILLOW PLACED UNDER BUTTOCKS AND FEET TO ALLEVIATE PRESSURE POINTS
--- NOTE | 2020-09-16 23:15 | NUR ---
SPOKE WITH PT'S DAUGHTER, MARTY. SHE WANTED AN UPDATE ON HER FATHER. SHE IS ALSO WAITING FOR DR TURNER TO CALL THE FAMILY. ADVISED MARTY I NOTIFIED DR TURNER THIS AM TO CALL THE FAMILY WITH AN UPDATE. SENT ANOTHER MESSAGE TO DR TURNER STATING FAMILY IS STILL WAITING FOR A CALL FROM HIM.
[2020-09-17] VITALS (13 sets, daily range): BP systolic 131–157; BP diastolic 65–72
[2020-09-17] MEDS: PROPOFOL 1000 MG/100 ML PREMIX 100 ML IV PRN ×3 (00:40→21:43)
--- NOTE | 2020-09-17 01:00 | NUR ---
PT REMAINS INTUBATED WITH DRIPS OF PROPROFAL AND LEVAPHED INFUSING. RASS REMAINS AT -3. TUBE FEEDING CONTINUES TO INFUSE. PT REMAINS ON BEDSIDE MONITOR
--- NOTE | 2020-09-17 02:13 | NUR ---
PT'S SKIN TEMP FELT WARM, TEMPORAL READS 99.2, MEDICATED WITH TYLENOL ORDERED VIA OG TUBE. 1250 ML OF ICE TEA COLORED URINE EMPTIED FROM F/C. PT REMAINS ON BEDISDE MONITOR AND VENT. CONTINOUS DRIP OF PROPROFAL @ 60 MCG AND LEVAPHED @1 MCG.
[2020-09-17] MEDS: NACL 0.45% 1,000 ML IV SCH (02:18)
[2020-09-17] MEDS: ACETAMINOPHEN 325 MG TAB PO PRN (02:19)
--- NOTE | 2020-09-17 03:45 | NUR ---
PT REPSOTIONED IN BED TO ALLEVIATE PRESSURE ON COCCYX.
--- NOTE | 2020-09-17 05:00 | NUR ---
PT REMAINS INTUBATED WITH DRIPS OF PROPROFAL AND LEVAPHED INFUSING. RASS REMAINS AT -3. TUBE FEEDING CONTINUES TO INFUSE. PT REMAINS ON BEDSIDE MONITOR
--- NOTE | 2020-09-17 06:06 | NUR ---
PT REMAINS INTUBATED WITH DRIPS OF PROPROFAL AND LEVAPHED INFUSING. RASS REMAINS AT -3. TUBE FEEDING CONTINUES TO INFUSE. PT REMAINS ON BEDSIDE MONITOR
--- NOTE | 2020-09-17 06:45 | NUR ---
TUBE FEEDING FINISHED INFUSING, OG TUBE FLUSHED WITH 6ML OF H2O
--- NOTE | 2020-09-17 07:29 | NUR ---
Pt report given to ARTURO LIRA. Transfer of care at this time.
--- NOTE | 2020-09-17 07:35 | NUR ---
RECEIVED ON A CARESCAPE R860 VENTILATOR PLUGGED INTO RED OUTLET TOLERATING NO ADVERSE REACTIONS NOTED TO AAN ENDOTRACHEAL TUBE #7.5 SECURED AT 25cm TEETH/GUM LINE WITH AN ANCHOR FAST CUFF PRESSURE CHECKED NOTED AMBU BAG AT BEDSIDE ENDOTRACHEAK TYBE SUCTION FOR SMALL THICK YELLOW SECRETIONS AIRWAY PATENT
--- NOTE | 2020-09-17 07:35 | NUR ---
RECIEVED REPORT FROM SORAYA HOBSON. TRANSFER OF CARE AT THIS TIME.
--- NOTE | 2020-09-17 07:37 | NUR ---
RT AT BEDSIDE
--- NOTE | 2020-09-17 08:00 | NUR ---
OBSERVED PTS BOTTOM DURING CLEANING, AREA IS BRUISED (UNSTAGEABLE) AND BLISTERS VISUALIZED ON COCCYX/BUTTOCK AREA. BLISTERS OBSERVED ON SCROTUM. BLISTER ON LEFT FOREARM VISUALIZED. PT POSITIONED WITH PILLOWS ON LEFT SIDE AND TURNED TO RIGHT SIDE. TOPPER PRESS OPERATOR AUTOMATIC/PULSE OX IN PLACE. BED LOCKED AND IN LOWEST POSITION. SIDE RAILS X2.
[2020-09-17] MEDS: BLOOD GLUCOSE MONITORING 1 DEV DEV FS SCH ×4 (08:29→21:41)
[2020-09-17] MEDS: PANTOPRAZOLE 40 MG TABEC PO SCH (08:37)
[2020-09-17] MEDS: INSULIN LANTUS 100 UNITS/ML 10 ML VIAL SUBQ SCH (08:57)
[2020-09-17] MEDS: INSULIN LISPRO SLIDING SCALE 100 UNITS/ML VIAL SUBQ PRN ×4 (08:58→21:42)
[2020-09-17] MEDS: ASCORBIC ACID 500 MG TAB PO SCH (09:10)
[2020-09-17] MEDS: ZINC SULF 220 MG CAP PO SCH (09:10)
[2020-09-17] MEDS: PANTOPRAZOLE 40 MG INJ VIAL IVP SCH (09:10)
[2020-09-17 09:59] LABS: ALBUMIN 1.5 g/dL (3.4-5.0); ANION GAP 18.1 (8-16); CARBON DIOXIDE 20.8 mmol/L (21-32); CREATININE 1.4 mg/dL (0.6-1.3); POTASSIUM 3.9 mmol/L (3.5-5.1); TOTAL BILIRUBIN 0.6 mg/dL (0.0-1.0)
--- NOTE | 2020-09-17 11:15 | NUR ---
PT REPOSITIONED TO POSITION OF COMFORT WITH PILLOWS X 2 ON RIGHT SIDE. LINENS AND GOWN REPLACED. LIQUID STOOL NOTED AROUND COCCYX/RECTAL AREA. PT CLEANED AND RECTAL TUBE INSERTED. BED LOCKED IN PLACE WITH SIDE RAILS X2. Addendum: 09/17/20 at 1414 by [email or web address] Amendment undone in EDM - 09/17/20 at 1415 by [email or web address] PT REPOSITIONED TO LEFT SIDE FOR COMFORT WITH PILLOWS X 2 ON RIGHT SIDE. LINENS AND GOWN REPLACED. LIQUID STOOL NOTED AROUND COCCYX/RECTAL AREA. PT CLEANED AND RECTAL TUBE INSERTED. BED LOCKED IN PLACE WITH SIDE RAILS X2.
--- NOTE | 2020-09-17 11:15 | NUR ---
RECTAL TUBE INSERTED PER MD ORDER.
--- NOTE | 2020-09-17 11:45 | NUR ---
URINE DRAINED FROM CLANCY CATHETER AND DISCARDED. OUTPUT 575 ML
--- NOTE | 2020-09-17 12:05 | NUR ---
SEDATED NO DISTRESS NOTED GOOD CHEST RISE ENDOTRACHEAL SUCTION FOR LARGE THIN YELLOW SECRETIONS AIRWAY PATENT
--- NOTE | 2020-09-17 13:15 | NUR ---
PT TURNED TO RIGHT SIDE. EQUAL CHEST RISE AND FALL. BEDSIDE MONITOR IN PLACE. BED LOCKED AND IN LOWEST POSITION.SIDE RAILS X2.
--- NOTE | 2020-09-17 13:18 | NUR ---
SPOKE WITH PTS DAUGHTER MARTY TO GIVE UPDATE ON PTS STATUS
--- NOTE | 2020-09-17 15:15 | NUR ---
PTS LEVOPHED HELD AT 0MCG/KG AT THIS TIME. SEE IV SPREADSHEET.
--- NOTE | 2020-09-17 15:15 | NUR ---
PTS PROPOFOL DECREASED TO 55MCG/KG AT THIS TIME. SEE IV SPREADSHEET.
--- NOTE | 2020-09-17 15:15 | NUR ---
PT TURNED TO LEFT SIDE. EQUAL CHEST RISE AND FALL. BEDSIDE MONITOR IN PLACE. BED LOCKED AND IN LOWEST POSITION.SIDE RAILS X2. OG TUBE FEEDING STARTED AT 65ML/HR, 15 GTTS/MIN BY GRAVITY.
--- NOTE | 2020-09-17 16:00 | NUR ---
PICTURES PHOTOGRAPHED OF WOUNDS, SEE CHART.
--- NOTE | 2020-09-17 16:34 | NUR ---
09/17/20 RD FOLLOW UP COMPLETED. PLEASE REFER TO NUTRITION ASSESSMENT UNDER CARE ACTIVITY FOR ESTIMATED NUTRITIONAL NEEDS. 1. RECOMMEND GLUCERNA 1.2 @ 65 ML/HR. START AT 10 ML/HR INCREASE BY 10 Q4H. PROVIDES 1560 ML OF VOLUME, 1872 KCAL AND 93 GM OF PROTEIN, WHICH MEETS 96% OF KCAL AND 100% OF PROTEIN NEEDS. 2. RECOMMEND FLUSH OF 135 [address] PRN FOR CHANGES 4. RD TO FOLLOW-UP 2-3 DAYS, HIGH RISK DAVEY TOM RD
--- NOTE | 2020-09-17 17:15 | NUR ---
PT TURNED TO RIGHT SIDE. EQUAL CHEST RISE AND FALL. BEDSIDE MONITOR IN PLACE. BED LOCKED AND IN LOWEST POSITION.SIDE RAILS X2. OG TUBE FEEDING RUNNING AT 65ML/HR, 15 GTTS/MIN BY GRAVITY.
--- NOTE | 2020-09-17 17:40 | NUR ---
SEDATED STABLE GOOD CHEST RISE AND AERATION THROUGHOUT BILATERAL LUNG SPENCER AIRWAY PATENT
--- NOTE | 2020-09-17 17:45 | NUR ---
PTS PROPOFOL DECREASED TO 50MCG/KG AT THIS TIME. SEE IV SPREADSHEET.
--- NOTE | 2020-09-17 19:20 | NUR ---
REPORT GIVEN TO SORAYA GIRON. TRANSFER OF CARE AT THIS TIME.
--- NOTE | 2020-09-17 19:35 | NUR ---
RECIVED PATIENT RASS -3. EET VENT. VENT SETTINGS AC/VC FIO2 40, RR: 18, PEEP 12, TV:500. PATIENT REMAINS ON PROPROFOL DRIP 50 MCG/MIN. PATIENT ON REAL ESTATE ASSOCIATE. VSS. PATIENT PICC LINE IN L UPPER ARM REMAINS PATIENT. PATIENT WOUNDS NOTS AND PICTURES TAKEN. PATIENT NOTED WITH 70CC OF LISA URINE IN FC. BED IS LOCKED AND IN LOWEST POSITON. PRENIEAL AREA CLEAN AND DRY TO THIS TIME.
--- NOTE | 2020-09-17 20:30 | NUR ---
Patient will be admitted to care of . Admited to ICU. Will go to room 7. Belongings list completed. Report to TRAVIS LIRA.
--- NOTE | 2020-09-17 21:00 | NUR ---
RECEIVED PT FROM ER VIA GURNEY.PT TRANSFERRED TO ICU 7.PT SEDATED.MONITORS ATTACHED.ST NOTED.GENERALIZED EDEMA ALSO NOTED.WITH MEREDITH PICC LINE INTACT INFUSING PROPOFOL DRIP AT 50MCG/KG/MIN. DRY WT 81.6 KG.W/PERIPHERAL IV TO LT EJ, LT F/A AND LT UPPER ARM, INTACT.ETT TO VENT AC/VC MODE.FIO2 40% TV 500 AC18 PEEP 12. OGT ALREADY IN PLACE.WILL RESTART FEEDING ORDERED.W/CLANCY CATHETER TO BSD DRAINING ADEQUATE AMT OF LISA COLORED URINE.W/RECTAL TUBE ALSO IN PLACE,SMALL AMT OF LIQUID BROWNISH/BLACKISH OUTPUT NOTED.W/BLISTERS NOTED,EXCORIATION TO PERINEAL AREA AND PRESSURE ULCER TO SACROCOCCYGEAL AREA. SILICONE FOAM DRESSING APPLIED.FLACC 0
--- NOTE | 2020-09-17 21:20 | NUR ---
2109 PT TRANSFERED FROM ER TO BED ICU 7. PATIENT IS ON AC 18 VT500 PEEP 12 AT 40% FIO2. PT IS STABLE AT THIS TIME
--- NOTE | 2020-09-17 21:30 | NUR ---
FACE TIME WITH FAMILY DONE.QUESTIONS ANSWERED.
[2020-09-18] VITALS (29 sets, daily range): BP systolic 127–144; BP diastolic 66–73
[2020-09-18] MEDS: ACETAMINOPHEN 325 MG TAB PO PRN
--- NOTE | 2020-09-18 | NUR ---
TEMP 100.4/AXILLA; COOLING MEASURES RENDERED.TYLENOL GIVEN ORDERED
[2020-09-18] MEDS: PROPOFOL 1000 MG/100 ML PREMIX 100 ML IV PRN ×4 (01:27→21:27)
--- NOTE | 2020-09-18 04:00 | NUR ---
ORAL CARE USING VAP KIT RENDERED.PT ON DAILY PROTONIX FOR GI PROPHYLAXIS AND HEPARIN FOR DVT PROPHYLAXIS.REPOSITIONED.
--- NOTE | 2020-09-18 05:15 | NUR ---
MORNING CARE DONE.PTS RECTAL TUBE LEAKING.REINSERTED.FLACC 0.
[2020-09-18 06:42] LABS: BASOPHILS # (AUTO) 0.1 K/uL (0.00-0.22); BASOPHILS % (AUTO) 0.3 % (0.0-2.0); EOSINOPHILS # (AUTO) 0.1 K/uL (0-0.4); EOSINOPHILS % (AUTO) 0.7 % (0.0-4.0); HEMATOCRIT 29.3 % (36-52); LYMPHOCYTES # (AUTO) 0.7 K/uL (2.0-11.5); LYMPHOCYTES % (AUTO) 4.7 % (20.5-51.1); MEAN CORPUSCULAR HEMOGLOBIN 31 pg (27-31); MEAN CORPUSCULAR HGB CONC 34 g/dL (33-37); MEAN CORPUSCULAR VOLUME 91.8 fL (80-94); MONOCYTES # (AUTO) 2.2 K/uL (0.8-1.0); MONOCYTES % (AUTO) 13.8 % (1.7-9.3); NEUTROPHILS # (AUTO) 12.8 K/uL (1.8-7.7); NEUTROPHILS % (AUTO) 80.5 % (42.2-75.2); PLATELET COUNT (AUTO) 240 K/uL (140-450); RED BLOOD CELL COUNT(AUTO) 3.19 MIL/uL (4.20-6.10); WHITE BLOOD COUNT (AUTO) 15.9 K/uL (4.8-10.8)
[2020-09-18] MEDS: BLOOD GLUCOSE MONITORING 1 DEV DEV FS SCH ×4 (07:07→21:00)
--- NOTE | 2020-09-18 07:30 | NUR ---
RECEIVED REPORT FROM INSULATION EXTRUDER OPERATOR RN. POC DISCUSSED. PT IS SEDATED WITH PROPOFOL DRIP TO LEFT UPPER ARM PICC. NO SOB NOTED. ETT TO VENT. AC/C VC TV 500, RATE OF 18, PEEP 12, 40% FIO2. ON OGT FEEDING, GLUCERNA 1.2 RUNNING AT 65 ML/HR. TOLERATING WELL. NO RESIDUAL. NO ABDOMINAL DISTENTION. RECTAL TUBE IN PLACE. KEPT PT ON SUPINE POSITION. WILL CONTINUE TO MONITOR.
[2020-09-18 07:33] LABS: MAGNESIUM 2.8 mg/dL (1.8-2.4)
--- NOTE | 2020-09-18 08:15 | NUR ---
Received pt on the vent setting AC 500, R 18, Fio2 40% Peep 12. Patient intubated with 7.5 ETT secured with anchor fast @ 23CM at lip. Pt has good chest rise and fall, airway patent. No respiratory distress noted. Vent plugged into the red outlet, alarm set audible. Ambu bag @ the bedside. Will continue to monitor.
[2020-09-18] MEDS: ASCORBIC ACID 500 MG TAB PO SCH (09:38)
[2020-09-18] MEDS: PANTOPRAZOLE 40 MG TABEC PO SCH (09:38)
[2020-09-18] MEDS: PANTOPRAZOLE 40 MG INJ VIAL IVP SCH (09:38)
[2020-09-18] MEDS: ZINC SULF 220 MG CAP PO SCH (09:39)
[2020-09-18] MEDS: INSULIN LANTUS 100 UNITS/ML 10 ML VIAL SUBQ SCH (09:58)
--- NOTE | 2020-09-18 10:00 | NUR ---
TOLERATED WELL TO TUBE FEEDING. KEPT HOB ELEVATED. NO TITRATION MADE. RASS -3.
[2020-09-18 10:14] LABS: LACTATE DEHYDROGENASE 473 U/L (85-227)
--- NOTE | 2020-09-18 12:00 | NUR ---
PT IS RESTING NO SOB NOTED. ET SUCTIONING DONE. OBTAINED CLEAR MOD SECRETION. TURNED TO SIDE. KEPT EXTREMITIES ELEVATED. WILL CONTINUE TO MONITOR.
[2020-09-18] MEDS: INSULIN LISPRO SLIDING SCALE 100 UNITS/ML VIAL SUBQ PRN ×3 (12:16→21:26)
[2020-09-18] MEDS: Z-GUARD PASTE TP SCH (12:17)
--- NOTE | 2020-09-18 19:15 | NUR ---
ENDORSED PT TO COOK RAILROAD RN. POC DISCUSSED. NO CHANGE OF CONDITION.
--- NOTE | 2020-09-18 19:20 | NUR ---
RECEIVED ENDORSEMENT FROM DAY SHIFT RN. PT SEDATED RASS -3, IN SUPINE POSITION HOB 30 DEGREES, LAC 22 GAUGE, LFA 22 GAUGE AND MEREDITH PICC RUNNING PROPOFOL, ETT TO VENT ACVC TV 500 RATE OF 18 PEEP 12, FIO2 40%. OGT TO FEEDING, SKIN WARM AND DRY TO TOUCH. NO ABDOMINAL DISTENTION. RECTAL TUBE IN PLACE, FC IN PLACE DRAINING VIA GRAVITY. PT AFEBRILE, SHOWING NO SIGNS OF ACUTE DISTRESS, SAFETY MEASURES IN PLACE. WILL CONTINUE TO MONITOR
--- NOTE | 2020-09-18 19:30 | NUR ---
RECEIVED PATIENT FROM DAY SHIFT ON DOCUMENTED VENT SETTINGS. VENT PLUGGED INTO RED OUTLET. BMV AT BEDSIDE.ETT SECURED AND MOVED. ALARMS AUDIBLE AND FUNCTIONING. WILL CONT TO MONITOR IN CHANGES OF PATIENT CONDITIONS.
[2020-09-19] VITALS (28 sets, daily range): BP systolic 99–151; BP diastolic 51–78
[2020-09-19] MEDS: Z-GUARD PASTE TP SCH ×2 (01:00→12:24)
[2020-09-19] MEDS: PROPOFOL 1000 MG/100 ML PREMIX 100 ML IV PRN ×4 (03:00→21:20)
[2020-09-19 05:51] LABS: ALBUMIN 1.3 g/dL (3.4-5.0); ANION GAP 11.3 (8-16); ASPARTATE AMINOTRANSFERASE 32 U/L (15-37); CARBON DIOXIDE 25.9 mmol/L (21-32); CHLORIDE 115 mmol/L (98-107); CREATININE 1.4 mg/dL (0.6-1.3); GFR ARICAN-AMERICAN 68 mL/min (>90); GLUCOSE 241 mg/dL (74-106); LACTATE DEHYDROGENASE 430 U/L (85-227); MAGNESIUM 2.7 mg/dL (1.8-2.4); PHOSPHORUS 1.9 mg/dL (2.5-4.9); POTASSIUM 4.2 mmol/L (3.5-5.1); SODIUM SERUM 148 mmol/L (136-145); TOTAL BILIRUBIN 0.6 mg/dL (0.0-1.0)
[2020-09-19 06:09] LABS: UREA NITROGEN, BLOOD 55 mg/dL (7-18)
[2020-09-19] MEDS: BLOOD GLUCOSE MONITORING 1 DEV DEV FS SCH ×4 (06:32→20:53)
[2020-09-19] MEDS: INSULIN LISPRO SLIDING SCALE 100 UNITS/ML VIAL SUBQ PRN ×3 (06:33→16:46)
[2020-09-19 06:34] LABS: BASOPHILS # (AUTO) 0.1 K/uL (0.00-0.22); BASOPHILS % (AUTO) 0.3 % (0.0-2.0); EOSINOPHILS # (AUTO) 0.1 K/uL (0-0.4); EOSINOPHILS % (AUTO) 0.4 % (0.0-4.0); HEMATOCRIT 30.4 % (36-52); HEMOGLOBIN 10.1 g/dL (12.0-18.0); LYMPHOCYTES # (AUTO) 1.1 K/uL (2.0-11.5); LYMPHOCYTES % (AUTO) 5.8 % (20.5-51.1); MEAN CORPUSCULAR HEMOGLOBIN 31 pg (27-31); MEAN CORPUSCULAR HGB CONC 33 g/dL (33-37); MEAN CORPUSCULAR VOLUME 92.2 fL (80-94); MONOCYTES # (AUTO) 2.6 K/uL (0.8-1.0); MONOCYTES % (AUTO) 13.8 % (1.7-9.3); NEUTROPHILS # (AUTO) 15.2 K/uL (1.8-7.7); NEUTROPHILS % (AUTO) 79.7 % (42.2-75.2); PLATELET COUNT (AUTO) 321 K/uL (140-450); RED CELL DISTRIBUTION WIDTH 14.2 % (11.6-13.7)
--- NOTE | 2020-09-19 07:27 | NUR ---
ENDORSED TO DAY SHIFT RN FOR CONTINUITY OF CARE
--- NOTE | 2020-09-19 07:42 | NUR ---
RECEIVED REPORT FORM STOCK SHAPER NURSE FOR CONTINUITY OF CARE. PT IN BED, SUPINE POSITION. RASS-3, FLACC 0, NO SOB, NO APPARENT DISTRESS. ETT TO VENT: AC/VC FIO2 40% R 18 PEEP 12. ABD SOFT, NON-DISTENDED, NON-TENDER. WITH MEREDITH PICC, RUNNING PROPOFOL 30MCG. CLANCY AND RECTAL TUBE INTACT AND PATENT. OGT TO TUBE FEEDING. SAFETY PRECAUTIONS IN PLACE. ISOLATION PRECAUTION OBSERVED. WILL CONT TO MONITOR.
[2020-09-19] MEDS ORDERED: DEXTROSE 50% 50 ML SYR IVP PRN (09:25)
--- NOTE | 2020-09-19 09:30 | NUR ---
DUE MORNING MEDS GIVEN ORDERED. ORAL CARE, CLANCY CARE DONE. REPOSITIONED PT
[2020-09-19] MEDS: ASCORBIC ACID 500 MG TAB PO SCH (09:48)
[2020-09-19] MEDS: PANTOPRAZOLE 40 MG INJ VIAL IVP SCH (09:48)
[2020-09-19] MEDS: PANTOPRAZOLE 40 MG TABEC PO SCH (09:48)
[2020-09-19] MEDS: ZINC SULF 220 MG CAP PO SCH (09:49)
[2020-09-19] MEDS: INSULIN LANTUS 100 UNITS/ML 10 ML VIAL SUBQ SCH (09:49)
[2020-09-19] MEDS: PIPERACILLIN/TAZOBACTAM 2.25 GM in DEXTROSE 5% 50 ML IV SCH ×2 (13:00→20:56)
--- NOTE | 2020-09-19 13:15 | NUR ---
PT'S DAUGHTER CALLED. UPDATE GIVEN. FACETIMED WITH PT
--- NOTE | 2020-09-19 17:00 | NUR ---
BLOOD SUGAR 297. COVERAGE GIVEN
--- NOTE | 2020-09-19 19:30 | NUR ---
ASSUMED CARE OF PT.INITIAL ASSESSMENT COMPLETED.PT SEDATED.ST NOTED.GENERALIZED PITTING +2 EDEMA NOTED.WITH MEREDITH PICC LINE INTACT INFUSING PROPOFOL DRIP AT 30MCG/KG/MIN. DRY WT 81.6 KG.W/PERIPHERAL IV TO LT EJ, LT F/A AND LT UPPER ARM, INTACT,SALINE LOCK.ETT TO VENT AC/VC MODE.FIO2 40% TV 500 AC18 PEEP 12. W/OGT INTACT,PLACEMENT VERIFIED.ON OGT FEEDING GLUCERNA 1.2 AT 65ML/HR W/WATER FLUSH .W/CLANCY CATHETER TO BSD DRAINING ADEQUATE AMT OF CLOUDY YELLOW URINE W/SEDIMENTS .W/RECTAL TUBE ALSO IN PLACE,SMALL AMT OF LIQUID BROWNISH OUTPUT NOTED.W/BLISTERS NOTED,EXCORIATION TO PERINEAL AREA AND PRESSURE ULCER TO SACROCOCCYGEAL AREA. FOAM DRESSING IN PLACE.FLACC 0
--- NOTE | 2020-09-19 20:00 | NUR ---
PT FEBRILE; COOLING MEASURES INITIATED; MEDS FOR FEVER GIVEN.ORAL CARE USING VAP KIT RENDERED.FLACC 0
[2020-09-19] MEDS: ACETAMINOPHEN 325 MG TAB PO PRN (20:53)
--- NOTE | 2020-09-19 23:11 | NUR ---
PHONE CALL FROM MARTY GALLEGO, PTS DAUGHTER; UPDATED ON PTS CONDITION.MADE AWARE OF THE OPEN BLISTERS ON THE SACRUM AND LT ARM.QUESTIONS ANSWERED
[2020-09-20] VITALS (27 sets, daily range): BP systolic 111–155; BP diastolic 48–82
--- NOTE | 2020-09-20 | NUR ---
STILL WITH FEVER,100.7,MEDS NOT DUE AT THIS TIME.CONTINUOUS COOLING MEASURES RENDERED,FLACC 0.REPOSITIONED
[2020-09-20] MEDS: Z-GUARD PASTE TP SCH ×2 (00:50→11:48)
--- NOTE | 2020-09-20 03:47 | NUR ---
PTS CONDITION REMAINS UNCHANGED.TEMP 99.8.FLACC 0.REPOSITIONED.
[2020-09-20] MEDS: PROPOFOL 1000 MG/100 ML PREMIX 100 ML IV PRN ×3 (04:55→20:09)
[2020-09-20] MEDS: PIPERACILLIN/TAZOBACTAM 2.25 GM in DEXTROSE 5% 50 ML IV SCH ×3 (05:00→20:01)
--- NOTE | 2020-09-20 05:34 | NUR ---
MORNING CARE DONE.LINENS CHANGED.ORAL CARE RENDERED.FLACC 0.REPOSITIONED.
[2020-09-20 06:51] LABS: BASOPHILS % (AUTO) 0.1 % (0.0-2.0); EOSINOPHILS # (AUTO) 0.1 K/uL (0-0.4); EOSINOPHILS % (AUTO) 0.3 % (0.0-4.0); HEMATOCRIT 30.5 % (36-52); HEMOGLOBIN 10.1 g/dL (12.0-18.0); LYMPHOCYTES # (AUTO) 1.1 K/uL (2.0-11.5); LYMPHOCYTES % (AUTO) 5.2 % (20.5-51.1); MEAN CORPUSCULAR HEMOGLOBIN 31 pg (27-31); MEAN CORPUSCULAR HGB CONC 33 g/dL (33-37); MEAN CORPUSCULAR VOLUME 93.3 fL (80-94); MONOCYTES # (AUTO) 2.4 K/uL (0.8-1.0); MONOCYTES % (AUTO) 11.5 % (1.7-9.3); NEUTROPHILS % (AUTO) 82.9 % (42.2-75.2); PLATELET COUNT (AUTO) 387 K/uL (140-450); RED BLOOD CELL COUNT(AUTO) 3.27 MIL/uL (4.20-6.10); RED CELL DISTRIBUTION WIDTH 14.3 % (11.6-13.7); WHITE BLOOD COUNT (AUTO) 20.5 K/uL (4.8-10.8)
[2020-09-20] MEDS: BLOOD GLUCOSE MONITORING 1 DEV DEV FS SCH ×4 (06:56→20:36)
[2020-09-20] MEDS: INSULIN LISPRO SLIDING SCALE 100 UNITS/ML VIAL SUBQ PRN ×4 (06:57→20:40)
[2020-09-20 08:06] LABS: ALBUMIN 1.2 g/dL (3.4-5.0); ANION GAP 14.1 (8-16); CARBON DIOXIDE 26.9 mmol/L (21-32); CREATININE 1.4 mg/dL (0.6-1.3); MAGNESIUM 2.7 mg/dL (1.8-2.4); PHOSPHORUS 2.3 mg/dL (2.5-4.9); TOTAL BILIRUBIN 0.5 mg/dL (0.0-1.0)
[2020-09-20] MEDS: PANTOPRAZOLE 40 MG INJ VIAL IVP SCH (08:28)
[2020-09-20] MEDS: ASCORBIC ACID 500 MG TAB PO SCH (08:30)
[2020-09-20] MEDS: ZINC SULF 220 MG CAP PO SCH (08:30)
[2020-09-20] MEDS: INSULIN LANTUS 100 UNITS/ML 10 ML VIAL SUBQ SCH (08:32)
[2020-09-20] MEDS: PANTOPRAZOLE 40 MG TABEC PO SCH (08:33)
--- NOTE | 2020-09-20 08:45 | NUR ---
BEDSIDE REPORT RECEIVED FROM SOLUTIONS SPECIALIST NURSE AT 0720, PT ETT TO VENT, SEDATED TO RASS -3 WITH PROPOFOL AT 30, DRYWT 81.6KG, RESP EVEN, EQUAL CHEST RISE AND FALL, VENT SETTING ACVC18, FIO2 40% 500, PEEP 12, BS DIMINISHED, ABD SOFT NON DISTENDED, OGT FEEDING ONGOING WITH GLUCERNA AT 65ML/HR FWF 135/6HR, AM MEDS GIVEN, RESIDUAL 10ML, ORAL CARE DONE, CLANCY CARE DONE, CHG WIPE DONE, PICC LINE AT [facility] SITE WNL, PIV L FA 18G S/L, LAC18G, L EJ18G SL, CLANCY IN PLACE, CLEAR LIGHT YELLOW URINE IN TUBING, RECTAL TUBE IN PLACE. ALL SAFETY MEASURE IN PLACE, POC REVIEWED, WILL CONTINUE TO MONITOR.
--- NOTE | 2020-09-20 09:10 | NUR ---
DR BARBA AT BEDSIDE
--- NOTE | 2020-09-20 13:30 | NUR ---
DAUGHTER ON THE VIDEO CALL WITH PT
--- NOTE | 2020-09-20 14:02 | NUR ---
PT REMAINS TABLE WITH SAME VENT SETTING, RESP EVEN UNLABORED, O2SAT 93%, CONDITION UNCHANGED, WILL CONTINUE TO MONTOR
--- NOTE | 2020-09-20 16:19 | NUR ---
09/20/20 RD FOLLOW UP COMPLETED. PLEASE REFER TO NUTRITION ASSESSMENT UNDER CARE ACTIVITY FOR ESTIMATED NUTRITIONAL NEEDS. GLUCERNA 1.2 @65 ML/HR FREE WATER FLUSH PER MD RD TO FOLLOW-UP IN 2-3 DAYS PATIENT IS HIGH RISK. DAVEY TOM, RD
--- NOTE | 2020-09-20 17:02 | NUR ---
PERICARE DONE, BEDBATH GIVEN CHG WIPE DONE, CLANCY CARE DONE, ORAL CARE DONE, OG TUBE SEEN COILED IN THE MOUTH, FEEDING HLED, OGT ÁNGEL'Ryanne.
--- NOTE | 2020-09-20 19:30 | NUR ---
RECEIVED ENDORSEMENT FROM DAY SHIFT RN. PT SEDATED RASS -3, IN SUPINE POSITION HOB 30 DEGREES, LAC 18 GAUGE SALINE LOCK, LFA 18 GAUGE SALINE LOCK AND LEJ 18 GAUGE SALINE LOCK, MEREDITH PICC RUNNING PROPOFOL AND NS TKO, ETT TO VENT ACVC TV 500 RATE 88 PEEP 10, FIO2 40%, SKIN WARM AND DRY TO TOUCH. PT AFEBRILE, NO ABDOMINAL DISTENTION. RECTAL TUBE IN PLACE, FC IN PLACE DRAINING VIA GRAVITY. SHOWING NO SIGNS OF ACUTE DISTRESS, SAFETY MEASURES IN PLACE. WILL CONTINUE TO MONITOR
--- NOTE | 2020-09-20 21:30 | NUR ---
ADMINISTERED 2100H MEDCIATIONS PER ORDERED, BLOOD GLUCOSE 272, ADMINISTERD 6 UNITS HUMALOG PER PROTOCOL,
--- NOTE | 2020-09-20 23:10 | NUR ---
REPOSITIONED PT, ORAL CARE AND SUCTION PERFORMED, REINSERTED NEW NGT TO LEFT NARE, PT SHOWING NO SIGNS OF ACUTE DISTRESS, WILL CONTINUE TO MONITOR
--- NOTE | 2020-09-20 23:49 | NUR ---
PT DAUGHTER MARTY CALLED FOR UPDATE REGARDING FATHER
[2020-09-21] VITALS (29 sets, daily range): BP systolic 111–162; BP diastolic 64–88
[2020-09-21] MEDS: Z-GUARD PASTE TP SCH ×2 (01:00→12:39)
[2020-09-21] MEDS: PROPOFOL 1000 MG/100 ML PREMIX 100 ML IV PRN (03:31)
[2020-09-21] MEDS: PIPERACILLIN/TAZOBACTAM 2.25 GM in DEXTROSE 5% 50 ML IV SCH ×3 (05:09→20:27)
[2020-09-21] MEDS: BLOOD GLUCOSE MONITORING 1 DEV DEV FS SCH ×4 (06:35→20:27)
[2020-09-21] MEDS: INSULIN LISPRO SLIDING SCALE 100 UNITS/ML VIAL SUBQ PRN ×4 (06:36→21:00)
[2020-09-21 06:57] LABS: BASOPHILS # (AUTO) 0.1 K/uL (0.00-0.22); BASOPHILS % (AUTO) 0.4 % (0.0-2.0); EOSINOPHILS # (AUTO) 0.1 K/uL (0-0.4); EOSINOPHILS % (AUTO) 0.6 % (0.0-4.0); HEMOGLOBIN 14.2 g/dL (12.0-18.0); LYMPHOCYTES # (AUTO) 0.7 K/uL (2.0-11.5); LYMPHOCYTES % (AUTO) 5.1 % (20.5-51.1); MEAN CORPUSCULAR HEMOGLOBIN 32 pg (27-31); MEAN CORPUSCULAR HGB CONC 34 g/dL (33-37); MONOCYTES # (AUTO) 1.6 K/uL (0.8-1.0); MONOCYTES % (AUTO) 11.6 % (1.7-9.3); NEUTROPHILS # (AUTO) 11.3 K/uL (1.8-7.7); NEUTROPHILS % (AUTO) 82.3 % (42.2-75.2); PLATELET COUNT (AUTO) 381 K/uL (140-450); RED BLOOD CELL COUNT(AUTO) 4.51 MIL/uL (4.20-6.10); RED CELL DISTRIBUTION WIDTH 14.1 % (11.6-13.7); WHITE BLOOD COUNT (AUTO) 13.8 K/uL (4.8-10.8)
[2020-09-21 07:11] LABS: ANION GAP 12.3 (8-16); CARBON DIOXIDE 28.9 mmol/L (21-32); CREATININE 1.3 mg/dL (0.6-1.3); POTASSIUM 4.2 mmol/L (3.5-5.1)
--- NOTE | 2020-09-21 07:20 | NUR ---
RECEIVED HANDOFF REPORT FROM CORPORATE GIVING MANAGER RN. POC DISCUSSED AND REVIEWED. PT IS SEDATED WITH PROPOFOL DRIP TO LEFT UPPER ARM PICC. NO SOB NOTED. ETT TO VENT. AC/C VC TV 500, RATE OF 18, PEEP 10, 40% FIO2. ON OGT FEEDING, GLUCERNA 1.2 RUNNING AT 65 ML/HR. TOLERATING WELL. NO RESIDUAL. NO ABDOMINAL DISTENTION. RECTAL TUBE IN PLACE. KEPT PT ON SUPINE POSITION. HOB ELEVATED. WILL CONTINUE TO MONITOR.
--- NOTE | 2020-09-21 07:21 | NUR ---
ENDORSED TO DAY SHIFT RN FOR CONTINUITY OF CARE
[2020-09-21 07:35] LABS: MAGNESIUM 2.9 mg/dL (1.8-2.4)
--- NOTE | 2020-09-21 08:10 | NUR ---
PAGED DR. LOMELI FOR CRITICAL LAB VALUE. ELEVATED NA, BUN, CREA. AWAITING TO CALL BACK.
--- NOTE | 2020-09-21 08:32 | NUR ---
RECEIVED ON A ThetaRayAPE R860 VENTILATOR PLUGGED INTO RED OUTLET TOLERATING WELL WITHOUT ADVERSE REACTIONS NOTED TO A ENDOTRACHEAL TUBE #7.5 SECURED AT 23cm WITH AN ANCHOR FAST CUFF PRESSURE CHECKED NOTED AMBU BAG AT BEDSIDE LOC SEDATED EQUAL CHEST RISE ENDOTRACHEAL TUBE SUCTION FOR LARGE SEMI THICK YELLOW SECRETIONS AIRWAY PATENT
[2020-09-21] MEDS: PANTOPRAZOLE 40 MG INJ VIAL IVP SCH (09:26)
[2020-09-21] MEDS: PANTOPRAZOLE 40 MG TABEC PO SCH (09:26)
[2020-09-21] MEDS: ZINC SULF 220 MG CAP PO SCH (09:27)
[2020-09-21] MEDS: ASCORBIC ACID 500 MG TAB PO SCH (09:27)
[2020-09-21] MEDS: INSULIN LANTUS 100 UNITS/ML 10 ML VIAL SUBQ SCH (09:43)
--- NOTE | 2020-09-21 13:15 | NUR ---
SPOKE WITH PT'S DAUGHTER. QUESTIONS AND CONCERNS WERE ADDRESSED. FAMILY DEMONSTRATED UNDERSTANDING.
--- NOTE | 2020-09-21 14:30 | NUR ---
PROPOFOL DRIP HELD FOR SEDATION VAC. RT PETER AWARE. NO RESPIRATORY DISTRESS NOTED. O2 SAT 96%.
--- NOTE | 2020-09-21 15:00 | NUR ---
RT PLACED PATIENT TO CPAP TRIAL , SBT PEEP 10 , FIO2 40%. PROPOFOL OFF. PT WITHDRAWS TO PAIN STIMULI. OPENS EYES. WILL CONTINUE TO MONITOR.
--- NOTE | 2020-09-21 15:10 | NUR ---
SEEN AND EXAMINED BY DR. BARBA. DEV BATEMAN PROPOFOL WAS HELD. PT'S EYES ARE CLOSED. RASS -3. NO AGITATIONS NOTED. MD ORDERED TO WAIT ANOTHER 30 MINS TO ASSESS PT'S ALERTNESS. PT WILL HAVE CT OF THE BRAIN WITHOUT CONTRAST IF PT IS NOT AWAKE TO RULE OUT STROKE.
[2020-09-21] MEDS: DEXTROSE 5% 1,000 ML IV SCH (16:00)
--- NOTE | 2020-09-21 16:55 | NUR ---
AWAKE RESPONSIVE TO NAME GOOD CHEST RISE ENDOTRACHEAL SUCTION FOR LARGE THIN YELLOW SECRETIONS AIRWAY PATENT
--- NOTE | 2020-09-21 17:00 | NUR ---
SEDATION REMAINS OFF AWAKE RESPONDS TO NAME GOOD CHEST RISE AND AERATION THROUGHOUT BILATERAL LUNG SPENCER AIRWAY PATENT PLACED ON CPAP/SBT TRIALS NOTED SCHEDULED FOR 4 HOURS SANTIAGO/RN NOTIFIED
--- NOTE | 2020-09-21 17:08 | NUR ---
REVIEWED VENTILATOR, DIAGNOSTIC PULMONARY AND SEDATION STATUS WITH DR. MOJGAN BARBA MD STATES "TRY CPAP/SBT TRIALS TOLERATED "
--- NOTE | 2020-09-21 19:15 | NUR ---
ENDORSED TO AIRCRAFT ENGINE MECHANIC OVERHAUL RN. POC DISCUSSED AND REVIEWED. NO CHANGE OF CONDITION.
--- NOTE | 2020-09-21 19:30 | NUR ---
ASSUMED CARE OF PT.INITIAL ASSESSMENT COMPLETED.PT OFF SEDATION, LETHARGIC.ST NOTED ON MONITOR.GENERALIZED PITTING +2 EDEMA NOTED.WITH MEREDITH PICC LINE INTACT INFUSING D5W AT 65ML/HR ORDERED.W/PERIPHERAL IV TO LT F/A AND LT UPPER ARM, INTACT,SALINE LOCK.ETT TO VENT CPAP.SBT 40 PEEP 10. W/NGT TO LT NARES INTACT,PLACEMENT VERIFIED.ON OGT FEEDING GLUCERNA 1.2 AT 65ML/HR W/WATER FLUSH .W/CLANCY CATHETER TO BSD DRAINING ADEQUATE AMT OF CLOUDY YELLOW URINE W/SEDIMENTS .W/RECTAL TUBE ALSO IN PLACE,SCANTY AMT OF LIQUID BROWNISH OUTPUT NOTED.W/BLISTERS NOTED,EXCORIATION TO PERINEAL AREA AND PRESSURE ULCER TO SACROCOCCYGEAL AREA. FOAM DRESSING IN PLACE.FLACC 0.REPOSITIONED
[2020-09-21] MEDS: ACETAMINOPHEN 325 MG TAB PO PRN (20:00)
--- NOTE | 2020-09-21 20:00 | NUR ---
TEMP 100.5; COOLING MEASURES RENDERED.TYLENOL ADMINISTERED ORDERED
--- NOTE | 2020-09-21 21:50 | NUR ---
FACE TIME WITH PTS FAMILY
[2020-09-22] VITALS (18 sets, daily range): BP systolic 118–163; BP diastolic 65–82
[2020-09-22] MEDS: Z-GUARD PASTE TP SCH ×2 (01:05→13:38)
--- NOTE | 2020-09-22 01:45 | NUR ---
PT TAKEN TO CT FOR CT OF HEAD WITHOUT CONTRAST, RT AT BEDSIDE AND SHOVEL MECHANIC WITH RN.
--- NOTE | 2020-09-22 03:59 | NUR ---
PT AFEBRILE.ORAL CARE DONE.REPOSITIONED.
[2020-09-22 04:39] LABS: BASOPHILS % (AUTO) 0.2 % (0.0-2.0); EOSINOPHILS # (AUTO) 0.1 K/uL (0-0.4); EOSINOPHILS % (AUTO) 0.6 % (0.0-4.0); HEMATOCRIT 32.5 % (36-52); HEMOGLOBIN 10.9 g/dL (12.0-18.0); LYMPHOCYTES # (AUTO) 0.9 K/uL (2.0-11.5); LYMPHOCYTES % (AUTO) 5.1 % (20.5-51.1); MEAN CORPUSCULAR HEMOGLOBIN 31 pg (27-31); MEAN CORPUSCULAR HGB CONC 34 g/dL (33-37); MEAN CORPUSCULAR VOLUME 93.1 fL (80-94); MONOCYTES # (AUTO) 1.6 K/uL (0.8-1.0); MONOCYTES % (AUTO) 9.3 % (1.7-9.3); NEUTROPHILS # (AUTO) 14.5 K/uL (1.8-7.7); NEUTROPHILS % (AUTO) 84.8 % (42.2-75.2); PLATELET COUNT (AUTO) 519 K/uL (140-450); RED BLOOD CELL COUNT(AUTO) 3.49 MIL/uL (4.20-6.10); RED CELL DISTRIBUTION WIDTH 14.2 % (11.6-13.7); WHITE BLOOD COUNT (AUTO) 17.1 K/uL (4.8-10.8)
[2020-09-22] MEDS: PIPERACILLIN/TAZOBACTAM 2.25 GM in DEXTROSE 5% 50 ML IV SCH ×3 (05:04→21:32)
--- NOTE | 2020-09-22 05:45 | NUR ---
MORNING CARE DONE.PT REPOSITIONED.1700ML CLOUDY YELLOW URINE WITH SEDIMENTS.NO OUTPUT/RECTAL TUBE NOTED.FLACC 0
[2020-09-22 05:53] LABS: ANION GAP 9.5 (8-16); CARBON DIOXIDE 32.7 mmol/L (21-32); CREATININE 1.3 mg/dL (0.6-1.3); POTASSIUM 4.2 mmol/L (3.5-5.1)
[2020-09-22 06:20] LABS: MAGNESIUM 2.2 mg/dL (1.8-2.4); PHOSPHORUS 3.4 mg/dL (2.5-4.9)
[2020-09-22] MEDS: BLOOD GLUCOSE MONITORING 1 DEV DEV FS SCH ×4 (06:20→21:00)
[2020-09-22] MEDS: INSULIN LISPRO SLIDING SCALE 100 UNITS/ML VIAL SUBQ PRN ×3 (06:21→17:48)
--- NOTE | 2020-09-22 07:20 | NUR ---
RECEIVED BEDSIDE REPORT FROM SUPERVISOR FABRICATION AND ASSEMBLY NURSE, PT AWAKE, UNABLE TO LET NEEDS KNOWN, ON ETT TO VENT ACPC FIO2 40%, RATE 18, PEEP 10, NO SOB NOTED, SATURATING @ 98%, PICC LINE TO R UPPER ARM, PATENT INTACT, INFUSING D5W @ 65ML/HR INFUSING WELL. NG TUBE TO LEFT NARES, PATENT INTACT, WITH FEEDING GLUCERNA @ 65ML/HR, TOLERATING WELL, RESIDUAL 40ML. CLANCY CATH IN PLACE DRAINING TO GRAVITY, RECTAL TUBE IN PLACE DRAINING TO GRAVITY, INITIAL ASSESSMENT DONE, ALL SAFETY PRECAUTION MET, CALL LIGHT WITHIN REACH, WILL CONTINUE TO MONITOR.
[2020-09-22] MEDS: PANTOPRAZOLE 40 MG INJ VIAL IVP SCH (08:32)
[2020-09-22] MEDS: ZINC SULF 220 MG CAP PO SCH (08:33)
[2020-09-22] MEDS: ASCORBIC ACID 500 MG TAB PO SCH (08:33)
[2020-09-22] MEDS: INSULIN LANTUS 100 UNITS/ML 10 ML VIAL SUBQ SCH (08:34)
--- NOTE | 2020-09-22 12:49 | NUR ---
DR WALKER AT BEDSIDE, PER TO EXTUBATE PT TODAY, AND ORDER LASIX 40MG BID IVP, WILL PUT IN ORDERS AND CONTINUE WITH ORDERS.
--- NOTE | 2020-09-22 12:50 | NUR ---
DR. MOLINA MAKING ROUNDS REVIEWED ABG SAMPLE REPORT NEW ORDER: EXTUBATE PATIENT
[2020-09-22] MEDS ORDERED: MORPHINE SULFATE 2 MG/ML SYR IVP PRN (14:10)
[2020-09-22] MEDS: LORazepam 2 MG/ML VIAL IM/IVP PRN (14:26)
[2020-09-22] MEDS: DEXTROSE 5% 1,000 ML IV SCH (15:57)
--- NOTE | 2020-09-22 19:21 | NUR ---
ENDORSED PT TO PUBLIC HEALTH DIRECTOR NURSE FOR CONTINUOUS CARE
--- NOTE | 2020-09-22 19:30 | NUR ---
RECEIVED PATIENT ON BED IN SEMI FOLWLERS POSITION; AWAKE BUT UNABLE TO FOLLOW SIMPLE COMMANDS. ON 5 LITERS 02 PER NASAL CANNULA SO2 95%. CARDIACSCOPE SHOWS ON SINUS RHYTHM HR 90/MIN NO ARRHYTHMIAS SEEN. IVF IN PROGRESS D5W 65 ML/HR VIA PICC LINE ON RIGHT UPPER ARM; PATENT AND INTACT. ABDOMEN IS SOFT; ACTIVE BOWEL SOUNDS. ON CONTINOUS TUBE FEEDING GLUCERNA 1.2 AT 65 ML/HR; TOLERATED; NO RESIDUALS.CLANCY CATH IN PLACE, DRAINING TO CLEAR YELLOW URINE OUTPUT.
[2020-09-22] MEDS: FUROSEMIDE 40 MG/4 ML VIAL IVP SCH (21:35)
[2020-09-23] VITALS (23 sets, daily range): BP systolic 120–146; BP diastolic 60–83
[2020-09-23] MEDS: Z-GUARD PASTE TP SCH ×2 (04:00→12:04)
--- NOTE | 2020-09-23 04:30 | NUR ---
MORNING BED BATH DONE; WOUND CARE DONE.
[2020-09-23] MEDS: PIPERACILLIN/TAZOBACTAM 2.25 GM in DEXTROSE 5% 50 ML IV SCH ×3 (05:54→21:35)
[2020-09-23] MEDS: DEXTROSE 5% 1,000 ML IV SCH ×2 (07:14→23:23)
--- NOTE | 2020-09-23 07:20 | NUR ---
Patient was extubated yesterday according to the night nurse report. day nurse has examined the patient and results showed that patient is awake but not follow commands at all. Upper and lower extremities are flaccid. Patient is not able to raise his extremities. Babinski reflex is normal or negative in left foot while there is no reflex on right foot. Patient opens eyes , shaking his head. there is a presence of Broca' s aphasia or Wernicke's aphasia. MD will be notified. We will continue to perform quality of care for this patient.
[2020-09-23] MEDS: BLOOD GLUCOSE MONITORING 1 DEV DEV FS SCH ×4 (08:01→21:00)
[2020-09-23] MEDS: INSULIN LISPRO SLIDING SCALE 100 UNITS/ML VIAL SUBQ PRN ×3 (08:16→16:25)
[2020-09-23] MEDS: PANTOPRAZOLE 40 MG INJ VIAL IVP SCH (08:18)
[2020-09-23] MEDS: ZINC SULF 220 MG CAP PO SCH (08:19)
[2020-09-23] MEDS: ASCORBIC ACID 500 MG TAB PO SCH (08:19)
[2020-09-23] MEDS: INSULIN LANTUS 100 UNITS/ML 10 ML VIAL SUBQ SCH (08:21)
[2020-09-23] MEDS: FUROSEMIDE 40 MG/4 ML VIAL IVP SCH (08:33)
--- NOTE | 2020-09-23 13:25 | NUR ---
*ST: Case Management Notes* Pt is 55 yo M MILLYA from home 09/12/2020 c SOB & nausea, +COVID PCR 09/08. Pt was on 100% NRB mask while in transit to ER. Pt was intubated 09/12/2020 in ER c OGT placed 09/13. Pt extubated 09/22. PMH DM2. CXR 09/15 - no sig change of bilat airspace consolidations. 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 Cleared with RN, Werner, for bedside swallow evaluation attempt. Pt seen bedside, on +COVID-19 airborne isolation precautions, noted edematous arms, on 6L O2 nc with humidifier, with NG-tube in place with feeding running. Pt intermittently opened his eyes but noted flat affect. Pt did not follow commands. No phonation emitted/elicited. Pt did not engage in communicative intent, often opening his eyes to name then turning his head away and closing his eyes. Oral care provided with Pt having occasional bite reflex and generally keeping his jaw tightly closed, making it difficult to place oral care swab interdentally. Multiple trials of ice chips and cold thin water by tsp and straw given to Pt, with Pt keeping his mouth closed and allowing bolus to spill from lips. Pt did not engage in straw sip thin. Further PO trials deferred 2/2 poor participation. Plan of care d/w pt's RN. Summary: Rec continue NPO, oral care every 2-4 hours. Rec continue non-oral means of nutrition, hydration, and medications at this time. MD to re-order swallow eval when Pt's mentation improves (i.e., attentive to task). -Lucy Delgadillo MA, CCC-PRESCHOOL PRINCIPAL
--- NOTE | 2020-09-23 16:02 | NUR ---
09/23/20 RD FOLLOW UP COMPLETED. PLEASE REFER TO NUTRITION ASSESSMENT UNDER CARE ACTIVITY FOR ESTIMATED NUTRITIONAL NEEDS. GLUCERNA 1.2 @65 ML/HR FREE WATER FLUSH PER MD REPEAT SWALLOW EVALUATION ONCE PT MORE ALERT ADVANCE DIET TO 60 GM CCHO ONCE ABLE TO TOLERATE REGULAR TEXTURES RD TO FOLLOW-UP IN 2-3 DAYS PATIENT IS HIGH RISK. DAVEY TOM, RD
--- NOTE | 2020-09-23 19:30 | NUR ---
RECEIVED PATIENT ON BED IN SEMI DA SILVA'S POSITION; AWAKE BUT DOESN'T FOLLOW ANY COMMANDS, JUST MOVE HEAD FROM SIDE TO SIDE, EXTREMITIES ARE ALL FLACCID; VENTILATING ON 5 LITERS 02/NC SO2 94%. CARDIACSCOPE SHOWS ON SINUS TACHY HR 103, NO ARRHYTHMIAS SEEN. IVF IN PROGRESS D5W AT 65ML/HR VIA PICC LINE ON RIGHT ARM, PATENT AND INTACT. VOIDING THRU CLANCY CATH. TO GRAVITY DRAINAGE BAG DRAINING TO CLEAR YELLOW WITH SEDIMENT URINE OUTPUT. WITH RECTAL TUBE IN PLACE.
[2020-09-23] MEDS: ACETAMINOPHEN 325 MG TAB PO PRN (23:30)
--- NOTE | 2020-09-23 23:30 | NUR ---
FEBRILE 101F; COLD WATER SPONGE BATH DONE; MEDICATED WITH TYLENOL TAB GIVEN VIA NGT.
[2020-09-24] VITALS (23 sets, daily range): BP systolic 92–151; BP diastolic 50–84
[2020-09-24] MEDS: Z-GUARD PASTE TP SCH ×2 (01:29→12:20)
--- NOTE | 2020-09-24 04:00 | NUR ---
MORNING BED BATH DONE;NO BM NOTED, RECTAL TUBE REMOVED.
[2020-09-24] MEDS: BLOOD GLUCOSE MONITORING 1 DEV DEV FS SCH ×4 (07:54→21:10)
[2020-09-24] MEDS: INSULIN LISPRO SLIDING SCALE 100 UNITS/ML VIAL SUBQ PRN ×4 (07:56→21:11)
[2020-09-24] MEDS: PANTOPRAZOLE 40 MG INJ VIAL IVP SCH (09:46)
[2020-09-24] MEDS: ASCORBIC ACID 500 MG TAB PO SCH (09:46)
[2020-09-24] MEDS: ZINC SULF 220 MG CAP PO SCH (09:47)
[2020-09-24] MEDS: INSULIN LANTUS 100 UNITS/ML 10 ML VIAL SUBQ SCH (09:59)
[2020-09-24] MEDS: DEXTROSE 5% 1,000 ML IV SCH ×2 (14:23→20:00)
--- NOTE | 2020-09-24 14:43 | NUR ---
SOCIAL WORK NOTE: PER CM, MARTY JULIÁN, DAUGHTER OF PATIENT, CONTACTED CM. MARTY REQUESTED TO SPEAK TO PHYSICIAN REGARDING CONDITION OF PATIENT. SW CONTACTED DR. TURNER WHO STATED THAT HE WILL CONTACT FAMILY. SW NOTIFIED MARTY. SW WILL REMAIN AVAILABLE IF FURTHER ISSUES ARISE.
--- NOTE | 2020-09-24 19:35 | NUR ---
RECEIVED BEDSIDE REPORT FROM DAY SHIFT NURSE. PATIENT IS AWAKE RESPIRATION EVEN UNLABORED ON 15L NRB MASK WITH 10L NC. SATING 91%. SKIN IS WARM AND DRY. RIGHT UPPER ARM NOTED NS RUNNING AT 60CC. CLANCY CATHETER DRAINING YELLOW URINE NOTED. NGTUBE NOTED RUNNING AT 65CC. PLAN OF CARE UP TO DATE. ALL SAFETY MEASURES IN PLACE. BED IS AT LOW POSITION.
[2020-09-24] MEDS: PIPERACILLIN/TAZOBACTAM 3.375 GM in DEXTROSE 5% 50 ML IV SCH (20:43)
--- NOTE | 2020-09-24 20:45 | NUR ---
ALL SCHEDULED MEDS WERE GIVEN PER ORDER. NO ASE NOTED. WILL CONTINUE TO MONITOR
[2020-09-24] MEDS: LORazepam 2 MG/ML VIAL IM/IVP PRN (21:37)
--- NOTE | 2020-09-24 22:43 | NUR ---
RN AND RT AT BEDSIDE; PTS SATURATION 75%; PT ON 100% NON REBREATHER AT THIS TIME.
[2020-09-24] MEDS: NOREPINEPHRINE 4 MG in DEXTROSE 5% 250 ML IV PRN ×2 (22:50→22:55)
--- NOTE | 2020-09-24 22:50 | NUR ---
PTS BP 63/34R 98; STARTED PT ON LEVOPHED DRIP PER PROTOCOL
[2020-09-24] MEDS ORDERED: NOREPINEPHRINE 4 MG/4 ML VIAL IV ONE (23:04)
[2020-09-24] MEDS ORDERED: fentaNYL citrate 0.05 MG/ML VIAL ONE (23:09)
--- NOTE | 2020-09-24 23:13 | NUR ---
PT NOT BREATHING; CODE BLUE CALLED.DR RINALDI AT BEDSIDE; CHEST COMPRESSION STARTED; PT PUT ON DOPAMINE DRIP PER PROTOCOL
--- NOTE | 2020-09-24 23:24 | NUR ---
PTS HR 149 AT THIS TIME; DR RINALDI STILL AT BEDSIDE; DOPAMINE DRIP ON HOLD AND LEVOPHED RESTARTED
[2020-09-24] MEDS ORDERED: DOPamine 400 MG/D5W PREMIX 250 ML IV PRN (23:40)
--- NOTE | 2020-09-24 23:46 | NUR ---
PHONE CALL TO DR TURNER; PTS PCP; UPDATED ON PTS PRESENT CONDITION, MADE AWARE PT POST CODE BLUE AND PT REINTUBATED; NEW ORDERS RECEIVED.CARRIED OUT
[2020-09-25] VITALS (22 sets, daily range): BP systolic 91–140; BP diastolic 46–76
--- NOTE | 2020-09-25 00:20 | NUR ---
2313 CODE BLUE CALLED. CPR AND BAGGING PATIENT WITH 100% FIO2. DR BARRERA INTUBATED PATIENT WITH 7.5 TUBE AT 23LIP LINE. PLACED PATIENT ON PRESSURE CONTROL 25 RATE 20 I/E 1.2.9 PEEP 10 FIO2 100%
--- NOTE | 2020-09-25 00:30 | NUR ---
PTS FAMILY CALLED; MARTY,PTS DAUGHTER OUTSIDE THE HOSPITAL WANTING TO SEE PT; VARINDER DICKSON,NURSE NITROCELLULOSE MAKER; ONLY ONE FAMILY ALLOWED FOR 5 MINUTES; RN ACCOMPANIED PTS DAUGHTER MARTY OUTSIDE ICU 7 DOOR; UPDATED ON PTS PRESENT CONDITION; MARTY IS AWARE RE; CODE BLUE; COIN MACHINE COLLECTOR SUPERVISOR AND HER WERE ON FACE TIME WHEN PT STOPPED BREATHING.QUESTIONS ANSWERED
--- NOTE | 2020-09-25 00:30 | NUR ---
PATIENT IS NOW ON ETT TO VENT. AC/PC 80 RATE 25 PEEP 10.
[2020-09-25] MEDS: ACETAMINOPHEN 325 MG TAB PO PRN (00:39)
--- NOTE | 2020-09-25 00:40 | NUR ---
VITALS WERE TAKEN. PATIENT TEMP 100.9. PRN TYLENOL ADMINISTERED PER ORDER. COOLING MEASURES IN PLACE. WILL CONTINUE TO MONITOR
[2020-09-25] MEDS: Z-GUARD PASTE TP SCH ×2 (00:47→13:18)
--- NOTE | 2020-09-25 01:09 | NUR ---
0040 ABG DRAWN AND RESULTS GIVEN TO DR BARBA. VENT RATE WAS CHANGED TO 22 AND INCREASE PEEP TO 12 IF BLOOD PRESSURE IS STABLE. PATIENTS BP IS 100/61. WILL NOT INCREASE PEEP AT THIS TIME
[2020-09-25] MEDS ORDERED: NOREPINEPHRINE 4 MG/4 ML VIAL IV ONE ×2 (01:32→05:44)
--- NOTE | 2020-09-25 02:53 | NUR ---
LOWERED FIO2 TO 80% SATS 96%
--- NOTE | 2020-09-25 03:20 | NUR ---
SUCTIONED PATIENT. OBTAINED SMALL AMOUNT SECRETION.
[2020-09-25] MEDS: PIPERACILLIN/TAZOBACTAM 3.375 GM in DEXTROSE 5% 50 ML IV SCH ×3 (04:44→21:03)
--- NOTE | 2020-09-25 04:50 | NUR ---
PROVIDED MORNING CARE
--- NOTE | 2020-09-25 05:10 | NUR ---
CHECKED NGTUBE RESIDUAL. OBTAINED 75CC COFFEE GROUND OUTPUT. STOP NGTUBE FEEDING FOR NOW AND WILL NOTIFY
[2020-09-25] MEDS: NOREPINEPHRINE 4 MG in DEXTROSE 5% 250 ML IV PRN ×5 (05:57→19:54)
[2020-09-25] MEDS: BLOOD GLUCOSE MONITORING 1 DEV DEV FS SCH ×4 (06:49→21:00)
[2020-09-25] MEDS: INSULIN LISPRO SLIDING SCALE 100 UNITS/ML VIAL SUBQ PRN ×4 (06:50→21:00)
--- NOTE | 2020-09-25 07:37 | NUR ---
ENDORSED PATIENT TO DAY SHIFT NURSE FOR CONTINUITY OF CARE
[2020-09-25 09:01] LABS: HEMATOCRIT 29.7 % (36-52); HEMOGLOBIN 9.8 g/dL (12.0-18.0); MEAN CORPUSCULAR HEMOGLOBIN 30 pg (27-31); MEAN CORPUSCULAR HGB CONC 33 g/dL (33-37); MEAN CORPUSCULAR VOLUME 92.5 fL (80-94); PLATELET COUNT (AUTO) 535 K/uL (140-450); RED BLOOD CELL COUNT(AUTO) 3.21 MIL/uL (4.20-6.10); RED CELL DISTRIBUTION WIDTH 13.4 % (11.6-13.7)
[2020-09-25 09:07] LABS: ANION GAP 8.9 (8-16); CARBON DIOXIDE 35.9 mmol/L (21-32); POTASSIUM 3.8 mmol/L (3.5-5.1)
[2020-09-25 09:12] LABS: MAGNESIUM 2.5 mg/dL (1.8-2.4); PHOSPHORUS 2.6 mg/dL (2.5-4.9)
[2020-09-25 09:14] LABS: WHITE BLOOD COUNT (AUTO) 31.8 K/uL (4.8-10.8)
[2020-09-25] MEDS: DEXTROSE 5% 1,000 ML IV SCH (09:15)
[2020-09-25 09:16] LABS: LYMPHOCYTES % (MANUAL) 4 % (20-46); MONOCYTES % (MANUAL) 6 % (5-12)
[2020-09-25] MEDS ORDERED: VANCOMYCIN PER PHARMACY MC PRN (09:25)
[2020-09-25] MEDS: INSULIN LANTUS 100 UNITS/ML 10 ML VIAL SUBQ SCH (09:26)
[2020-09-25] MEDS: ZINC SULF 220 MG CAP PO SCH (09:26)
[2020-09-25] MEDS: ASCORBIC ACID 500 MG TAB PO SCH (09:27)
[2020-09-25] MEDS: PANTOPRAZOLE 40 MG INJ VIAL IVP SCH (09:27)
[2020-09-25] MEDS: VANCOMYCIN HCL 1.25 GM in NACL 0.9% 250 ML IV SCH ×2 (11:00→23:49)
--- NOTE | 2020-09-25 12:10 | NUR ---
CHECKED BLOOD GLUCOSE AND RECEIVED 360, 10 UNIT HUMALOG SUBQ GIVEN. ADMINISTERED SCHEDULED VANCOCIN PER MD ORDER. PROVIDED ORAL CARE AND SUCTIONING. WITH ASSIST, REPOSITIONED PATIENT, OFFLOADED PRESSURE WITH PILLOWS, PATIENT TOLERATED FAIR, FLACC 0. RESPIRATION EVEN AND UNLABORED ON ETT TO VENT, AV/PC 70%, RATE 22, PEEP 10, SPO2 AT 100% AT THIS TIME. SAFETY MEASURES IN PLACE. BED IN LOW POSITION, HOB ELEVATED 35 DEGREE, AND BED LOCKED.
--- NOTE | 2020-09-25 13:02 | NUR ---
RECEIVED A CALL FROM PATIENT'S DAUGHTER MARTY, UPDATED CURRENT PATIENT'S CONDITION, ANSWERED MARTY'S QUESTIONS, MARTY WAS AWARE.
--- NOTE | 2020-09-25 13:15 | NUR ---
DR WALKER IS TALKING TO PATIENT'S DAUGHTER MARTY ON THE PHONE.
--- NOTE | 2020-09-25 13:19 | NUR ---
ADMINISTERED SCHEDULED ZOSYN AND PROVIDED WOUND CARE, Z-GUARD APPLIED ON PERINEAL AREA.
--- NOTE | 2020-09-25 13:28 | NUR ---
DR WALKER IS ROUNDING ON PATIENT, AND ORDERED TO TITRATE DOWN ON FIO2 TO 40%.
--- NOTE | 2020-09-25 14:02 | NUR ---
OBTAINED TELEPHONE CONSENT WITH YUSUF LIRA FOR TRACHEOTOMY AND PEG PLACEMENT FROM DAUGHTER MARTY, MARTY WAS AWARE AND AGREED TO PROCEDURE.
--- NOTE | 2020-09-25 19:30 | NUR ---
RECEIVED PATIENT ON BED WITH HOB ELEVATED TO 30 DEGREE; ORALLY INTUBATED AND VENTILATED AT 40% FIO2; SO2 98%. CARDIAC SCOPE SHOWS ON SINUS TACHY HR 103/MIN NO ARRHYTHMIAS SEEN. IVF IN PROGRESS D5W AT 60 ML/HR VIA PICC LINE TO RIGHT UPPER ARM; PATENT AND INTACT. ABDOMEN IS SOFT, HYPOACTIVE BOWEL SOUND. ON CONTINOUS TUBE FEEDING GLUCERNA 1.2 AT 65 ML/HR VIA NGT; TOLERATED, NO RESIDUALS. WITH CLANCY CATH IN PLACE TO GRAVITY DRAINAGE BAG DRAINING TO CLOUDY YELLOW WITH SEDIMENTS NOTED.
--- NOTE | 2020-09-25 19:43 | NUR ---
ENDORSED PATIENT TO DESIGN SUPERVISOR NURSE SHAYE FOR CONTINUITY OF CARE. SAFETY MEASURES IN PLACE.
--- NOTE | 2020-09-25 20:30 | NUR ---
FEBRILE 100.4; COOLING MEASURES DONE; MEDICATED WITH TYLENOL TAB GIVEN THRU NGT.
--- NOTE | 2020-09-25 22:00 | NUR ---
EVENING CARE DONE; TURNED AND REPOSITIONED PATIENT.
--- NOTE | 2020-09-25 23:40 | NUR ---
LEVOPHED DRIP STARTED TO TAPER DOWN PER PROTOCOL.
[2020-09-26] VITALS (28 sets, daily range): BP systolic 93–150; BP diastolic 42–89
[2020-09-26] MEDS: Z-GUARD PASTE TP SCH ×2 (01:00→13:00)
[2020-09-26] MEDS: NOREPINEPHRINE 4 MG in DEXTROSE 5% 250 ML IV PRN ×2 (02:02→13:46)
--- NOTE | 2020-09-26 04:00 | NUR ---
PATIENT IS FEBRILE AGAIN 101.6; COOLING MEASURES DONE, TYLENOL TAB GIVEN THRU NGT; TEMP RECHECK AFTER AN HOUR IT'S 98.8.F.
--- NOTE | 2020-09-26 04:20 | NUR ---
PATIENT LOOK MORE AWAKE,AND WITH DELAY IN FOLLOWING SIMPLE COMMANDS.
[2020-09-26] MEDS: PIPERACILLIN/TAZOBACTAM 3.375 GM in DEXTROSE 5% 50 ML IV SCH ×3 (05:00→20:50)
--- NOTE | 2020-09-26 05:00 | NUR ---
Pt remains unchanged on the ventilator at this time. no issues throughout the evening. no changes in vent parameters.
[2020-09-26 06:20] LABS: BASOPHILS # (AUTO) 0.1 K/uL (0.00-0.22); BASOPHILS % (AUTO) 0.5 % (0.0-2.0); EOSINOPHILS # (AUTO) 0.1 K/uL (0-0.4); EOSINOPHILS % (AUTO) 0.4 % (0.0-4.0); HEMATOCRIT 25.1 % (36-52); HEMOGLOBIN 8.5 g/dL (12.0-18.0); LYMPHOCYTES # (AUTO) 1.3 K/uL (2.0-11.5); LYMPHOCYTES % (AUTO) 6.4 % (20.5-51.1); MEAN CORPUSCULAR HEMOGLOBIN 31 pg (27-31); MEAN CORPUSCULAR HGB CONC 34 g/dL (33-37); MEAN CORPUSCULAR VOLUME 92.4 fL (80-94); MONOCYTES # (AUTO) 0.9 K/uL (0.8-1.0); MONOCYTES % (AUTO) 4.3 % (1.7-9.3); NEUTROPHILS # (AUTO) 17.7 K/uL (1.8-7.7); NEUTROPHILS % (AUTO) 88.4 % (42.2-75.2); PLATELET COUNT (AUTO) 373 K/uL (140-450); RED BLOOD CELL COUNT(AUTO) 2.71 MIL/uL (4.20-6.10); RED CELL DISTRIBUTION WIDTH 13.6 % (11.6-13.7)
[2020-09-26] MEDS: ACETAMINOPHEN 325 MG TAB PO PRN (06:32)
[2020-09-26 07:25] LABS: ANION GAP 8.4 (8-16); CARBON DIOXIDE 33.6 mmol/L (21-32); CREATININE 2.2 mg/dL (0.6-1.3)
[2020-09-26] MEDS: BLOOD GLUCOSE MONITORING 1 DEV DEV FS SCH ×4 (07:30→20:50)
[2020-09-26] MEDS: INSULIN LISPRO SLIDING SCALE 100 UNITS/ML VIAL SUBQ PRN ×4 (07:30→20:51)
--- NOTE | 2020-09-26 08:00 | NUR ---
RECEIVED BEDSIDE REPORT FROM CHEF TEACHER NURSE, PT IS AWAKE, ABLE TO FOLLOW SIMPLE COMMANDS, YES/NO SIMPLE QUESTIONS. PT IS ETT TO VENT AC V/C FIO2 40, RATE 22, PEEP 10, SATURATING @ 97%. S1S2 NOTED UPON AUSCULTATION, PT HAS MEREDITH PICC LINE RUNNING LEVOPHED 6 MCG/MIN. BOWEL SOUNDS ACTIVE IN ALL 4 QUADRANTS. NG-TUBE TO LEFT NARE, RESIDUAL: 20ML, FEEDING GLUCERNA 1.2, TOLERATING WELL. CLANCY CATH IN PLACE DRAINING TO GRAVITY. SKIN WARM DRY. OPEN SACRAL WOUND. SAFETY MEASURES IN PLACE, BED LOW AND LOCKED, SIDE RAILS UP, CALL LIGHT WITHIN REACH, WILL CONTINUE TO MONITOR. Addendum: 09/27/20 at 1052 by Ann Marie Gresham RN RN SKIN: OPEN SACRAL WOUND, OPEN WOUND TO LT FOREARM, AND INCONTINENT DERMATITIS
--- NOTE | 2020-09-26 08:17 | NUR ---
DR TUNRER ON THE UNIT, UPDATED ON PTs CONDITION. PER DR TURNER, ORDER WOUND CONSULT AND THERAHONEY. AND ALSO PER DR TURNER, GIVE CONVALESCENT PLASMA.
[2020-09-26] MEDS: ZINC SULF 220 MG CAP PO SCH (09:01)
[2020-09-26] MEDS: PANTOPRAZOLE 40 MG INJ VIAL IVP SCH (09:01)
[2020-09-26] MEDS: ASCORBIC ACID 500 MG TAB PO SCH (09:02)
[2020-09-26] MEDS: INSULIN LANTUS 100 UNITS/ML 10 ML VIAL SUBQ SCH (09:05)
[2020-09-26] MEDS: DEXTROSE 5% 1,000 ML IV SCH ×2 (09:09→18:12)
[2020-09-26] MEDS ORDERED: THERAHONEY GEL 42.5 GM TP PRN (11:40)
--- NOTE | 2020-09-26 11:47 | NUR ---
UPDATED DR TURNER ON POTASSIUM IS 3.[address] TURNER, GIVE 80 MEQ OF K-RIDER
--- NOTE | 2020-09-26 13:00 | NUR ---
FAMILY CALLED, UPDATED ON PTs CONDITION
--- NOTE | 2020-09-26 14:00 | NUR ---
PICC LINE NURSE ON UNIT. Addendum: 09/26/20 at 1424 by Ann Marie Gresham RN RN WRONG PATIENT
[2020-09-26] MEDS: KCL 20 MEQ/WATER INJ PREMIX 100 ML IV SCH ×4 (15:02→20:49)
--- NOTE | 2020-09-26 16:00 | NUR ---
ROUTINE CARE GIVEN, CLANCY CARE, VAP ORAL CARE, CHG BATH, NEW LINEN AND GOWN. PT TOLERATED IT WELL. SAFETY MEASURES IN PLACE, BED LOW AND LOCKED, SIDE RAILS UP, CALL LIGHT WITHIN REACH, WILL CONT TO MONITOR.
--- NOTE | 2020-09-26 16:34 | NUR ---
09/26/20 RD FOLLOW UP COMPLETED PLEASE REFER TO NUTRITION PROGRESS NOTES UNDER CARE ACTIVITY FOR ESTIMATED NUTRITIONAL NEEDS. RD RECOMMENDATIONS: 1. CONTINUE TF GLUCERNA 1.2@65 MLS/HR - SUFFICIENT TO MEET 100% ESTIMATED NEEDS 2. CONTINUE WATER FLUSH 135MLS Q6HRS PER MD 3. F/U 2-3 DAYS; HIGH RSIK MARLIN ORTIZ MBA, RD
--- NOTE | 2020-09-26 18:00 | NUR ---
PTs CONDITION REMAINS UNCHANGED. SAFETY MEASURES IN PLACE, WILL CONT TO MONITOR.
--- NOTE | 2020-09-26 20:00 | NUR ---
RECEIVED PT FROM DAY SHIFT RN. PT ETT TO VENT. A/C PC 40%,R:22, PEEP-5, RESPIRATION EVEN UNLABORED. CHEST EXPANSION SYMMETRICAL, ANGEL SOUNDS. DIMINISHED UPON AUSCULTATION. ORAL MUCOSA PINK AND MOIST. SKIN WARM AND DRY. PRESSURE ULCER ON THE SACRAL AREA. PT HAS ACCESS ON THE RIGHT UPPER ARM PICC LINE INFUSING D5@60ML/HR, K-RIDER @ 50MLS/HR. LINE ASYMPTOMATIC, PATENT AND INTACT. CLANCY CATH TO GRAVITY. NGT TO FEEDING, @ 65ML/HR WITH 833GAC4M FWF. BED IN LOWEST POSITION, SIDE RAILS UP, ALL SAFETY MEASURES IN PLACE. ISOLATION PRECAUTION MAINTAINED.
--- NOTE | 2020-09-26 21:35 | NUR ---
RECEIVE PATIENT FROM DAY SHIFT ON DOCUMENTED VENT SETTINGS. VENT PLUGGED INTO RED OUTLET. BMV AT BEDSIDE. SX COPIUOS AMOUNT OF SECRETION. ALARMS SET. WILL CONT TO MONITOR.
[2020-09-27] VITALS (29 sets, daily range): BP systolic 99–150; BP diastolic 53–73
--- NOTE | 2020-09-27 | NUR ---
TURNED AND REPOSITIONED PT. PRESSURE AREAS OFF LOADED. PT TOLERATING FEEDING WELL. WILL CONTINUE TO MONITOR.
[2020-09-27] MEDS: Z-GUARD PASTE TP SCH ×2 (01:00→13:00)
--- NOTE | 2020-09-27 04:00 | NUR ---
MORNING CARE PROVIDED. PT HAD A BOWEL MOVEMENT. PT CLEANED. TURNED AND REPOSITIONED. WILL CONTINUE TO MONITOR.
[2020-09-27] MEDS: PIPERACILLIN/TAZOBACTAM 3.375 GM in DEXTROSE 5% 50 ML IV SCH ×3 (05:12→21:09)
[2020-09-27] MEDS ORDERED: KCL 20 MEQ/WATER INJ PREMIX 200 ML IV PRN (06:00)
[2020-09-27 06:24] LABS: BASOPHILS # (AUTO) 0.1 K/uL (0.00-0.22); BASOPHILS % (AUTO) 0.4 % (0.0-2.0); EOSINOPHILS # (AUTO) 0.1 K/uL (0-0.4); EOSINOPHILS % (AUTO) 0.7 % (0.0-4.0); HEMATOCRIT 27.5 % (36-52); HEMOGLOBIN 9.3 g/dL (12.0-18.0); MEAN CORPUSCULAR HEMOGLOBIN 31 pg (27-31); MEAN CORPUSCULAR HGB CONC 34 g/dL (33-37); MEAN CORPUSCULAR VOLUME 92.9 fL (80-94); MONOCYTES # (AUTO) 0.6 K/uL (0.8-1.0); MONOCYTES % (AUTO) 3.7 % (1.7-9.3); NEUTROPHILS # (AUTO) 15.1 K/uL (1.8-7.7); NEUTROPHILS % (AUTO) 89.2 % (42.2-75.2); PLATELET COUNT (AUTO) 328 K/uL (140-450); RED BLOOD CELL COUNT(AUTO) 2.96 MIL/uL (4.20-6.10); RED CELL DISTRIBUTION WIDTH 13.7 % (11.6-13.7); WHITE BLOOD COUNT (AUTO) 16.9 K/uL (4.8-10.8)
[2020-09-27 06:29] LABS: ANION GAP 9.6 (8-16); CARBON DIOXIDE 32.1 mmol/L (21-32); CREATININE 2.2 mg/dL (0.6-1.3); POTASSIUM 3.7 mmol/L (3.5-5.1)
[2020-09-27] MEDS: BLOOD GLUCOSE MONITORING 1 DEV DEV FS SCH ×4 (07:30→21:00)
--- NOTE | 2020-09-27 07:30 | NUR ---
ENDORSED PT TO DAY SHIFT RN FOR CONTINUITY OF CARE.
--- NOTE | 2020-09-27 07:35 | NUR ---
RECEIVED ON A [employer] R860 VENTILATOR PLUGGED INTO RED OUTLET TOLERATING WELL WITHOUT ADVERSE REACTIONS NOTED TO AN ENDOTRACHEAL TUBE #7.5 SECURED AT 23cm TEETH/GUM LINE WITH AN ANCHOR FAST CUFF PRESSURE CHECKED NOTED AMBU BAG AT BEDSIDE LOC AWAKE STABLE COARSE RHONCHI BILATERAL ENDOTRACHEAL SUCTION FOR COPIOUS THICK YELLOW WITH BLOOD TINGE SECRETONS AIRWAY PATENT
--- NOTE | 2020-09-27 08:00 | NUR ---
RECEIVED BEDSIDE REPORT FROM WATER PURIFIER NURSE, PT IS AWAKE, ABLE TO FOLLOW SIMPLE COMMANDS, YES/NO SIMPLE QUESTIONS. PT IS ETT TO VENT AC V/C FIO2 40, RATE 22, PEEP 5, SATURATING @ 97%. S1S2 NOTED UPON AUSCULTATION, PT HAS MEREDITH PICC LINE RUNNING DEXTROSE 5% @ 60 ML/HR. BOWEL SOUNDS ACTIVE IN ALL 4 QUADRANTS. NG-TUBE TO LEFT NARE, RESIDUAL: 0ML, FEEDING GLUCERNA 1.2, TOLERATING WELL. CLANCY CATH IN PLACE DRAINING TO GRAVITY, YELLOW/CLOUDY/SEDIMENTS NOTED. SKIN WARM DRY. OPEN SACRAL WOUND, OPEN WOUND TO LT FOREARM, AND INCONTINENT DERMATITIS. SAFETY MEASURES IN PLACE, BED LOW AND LOCKED, SIDE RAILS UP, CALL LIGHT WITHIN REACH, WILL CONTINUE TO MONITOR.
[2020-09-27] MEDS: INSULIN LISPRO SLIDING SCALE 100 UNITS/ML VIAL SUBQ PRN ×3 (08:41→17:13)
[2020-09-27] MEDS: ZINC SULF 220 MG CAP PO SCH (09:06)
[2020-09-27] MEDS: ASCORBIC ACID 500 MG TAB PO SCH (09:06)
[2020-09-27] MEDS: INSULIN LANTUS 100 UNITS/ML 10 ML VIAL SUBQ SCH (09:09)
[2020-09-27] MEDS: DEXTROSE 5% 1,000 ML IV SCH ×2 (09:36→11:51)
--- NOTE | 2020-09-27 10:00 | NUR ---
NO S/S OF DISTRESS NOTED, TURNED ON TV FOR PATIENT. REPOSITIONED PT, TOLERATED IT WELL. SAFETY MEASURES IN PLACE, WILL CONT TO MONITOR.
--- NOTE | 2020-09-27 10:30 | NUR ---
DR MOSQUEDA ON THE UNIT. UPDATED ON PTs CONDITION AND EXPLAINED THAT PROTONIX IS BACK ORDERED. PER DR MOSQUEDA, ORDER FAMOTIDINE 40 MG IVP DAILY.
[2020-09-27] MEDS ORDERED: VANCOMYCIN HCL 1.25 GM in NACL 0.9% 250 ML IV SCH (12:00)
--- NOTE | 2020-09-27 12:35 | NUR ---
DR WALKER ON UNIT. UPDATED ABOUT PT CONDITION, PER MD, TRACH AND PEG PROCEDURES ON TUESDAY.
[2020-09-27] MEDS: FAMOTIDINE 20 MG/2 ML VIAL IV SCH (12:46)
--- NOTE | 2020-09-27 13:12 | NUR ---
AWAKE STABLE NO SOB NOTED GOOD CHEST RISE SATURATION 100% ON FIO2 OF 40% PEEP 5cmH2O TITRATED FIO2 TO 35% DAVEY/RN AT BEDSIDE AND AWARE
--- NOTE | 2020-09-27 14:00 | NUR ---
NO S/S OF DISTRESS NOTED, REPOSITIONED PT, TOLERATED IT WELL. SAFETY MEASURES IN PLACE, WILL CONT TO MONITOR.
--- NOTE | 2020-09-27 17:22 | NUR ---
STABLE AWAKE RESPONDS TO SHAGGER VERBAL GOOD EYE TRACKING ENDOTRACHEAL SUCTON FOR LARGE THICK BLOOD TINGE SECRETIONS AIRWAY PATENT
--- NOTE | 2020-09-27 18:00 | NUR ---
PTs CONDITION REMAINS UNCHANGED. SAFETY MEASURES IN PLACE, WILL CONT TO MONITOR.
--- NOTE | 2020-09-27 19:15 | NUR ---
RECEIVED PATIENT ON BED ORALLY INTUBATED AND VENTILATED AT 85 % FIO2 ACPC MODE OF OF VENTILATION. PATIENT AWAKE AND ALERT, ABLE TO FOLLOW SIMPLE COMMANDS.CARDIACSCOPE SHOWS ON SINUS RHYTHM HR 93/MIN. IVF IN PROGRESS D5W AT 60 ML/HR VIA PICC LINE ON RIGHT UPPER ARM; INTACT. ABDOMEN IS SOFT, ACTIVE BOWEL SOUNDS.; ON CONTINOUS TUBE FEEDING GLUCERNA 1.2 AT 65 ML/HR VIA NGT; TOLERATED, NO RESIDUALS. WITH CLANCY CATH IN PLACE TO GRAVITY DRAINAGE BAG DRAINING TO CLOUDY YELLOW URINE OUTPUT. PATENT AND INTACT.
--- NOTE | 2020-09-27 23:00 | NUR ---
1 UNIT CONVALESCENT PLASMA TRANSFUSED TO THE PATIENT AFTER CHECKING WITH ANOTHER SORAYA JALLOH.
[2020-09-28] VITALS (31 sets, daily range): BP systolic 111–160; BP diastolic 64–87
[2020-09-28] MEDS: Z-GUARD PASTE TP SCH ×2 (03:30→13:00)
--- NOTE | 2020-09-28 04:00 | NUR ---
MORNING BED BATH DONE; REPOSITIONED PATIENT.
[2020-09-28] MEDS: PIPERACILLIN/TAZOBACTAM 3.375 GM in DEXTROSE 5% 50 ML IV SCH ×3 (05:54→20:29)
[2020-09-28 06:20] LABS: BASOPHILS # (AUTO) 0.1 K/uL (0.00-0.22); BASOPHILS % (AUTO) 0.5 % (0.0-2.0); EOSINOPHILS # (AUTO) 0.2 K/uL (0-0.4); EOSINOPHILS % (AUTO) 1.1 % (0.0-4.0); HEMATOCRIT 26.6 % (36-52); HEMOGLOBIN 8.9 g/dL (12.0-18.0); LYMPHOCYTES % (AUTO) 6.7 % (20.5-51.1); MEAN CORPUSCULAR HEMOGLOBIN 31 pg (27-31); MEAN CORPUSCULAR HGB CONC 33 g/dL (33-37); MONOCYTES # (AUTO) 0.6 K/uL (0.8-1.0); MONOCYTES % (AUTO) 4.4 % (1.7-9.3); NEUTROPHILS # (AUTO) 12.7 K/uL (1.8-7.7); NEUTROPHILS % (AUTO) 87.3 % (42.2-75.2); PLATELET COUNT (AUTO) 324 K/uL (140-450); RED BLOOD CELL COUNT(AUTO) 2.86 MIL/uL (4.20-6.10); RED CELL DISTRIBUTION WIDTH 13.4 % (11.6-13.7); WHITE BLOOD COUNT (AUTO) 14.5 K/uL (4.8-10.8)
[2020-09-28 06:33] LABS: ANION GAP 9.7 (8-16); CARBON DIOXIDE 32.9 mmol/L (21-32); CREATININE 2.1 mg/dL (0.6-1.3); POTASSIUM 3.6 mmol/L (3.5-5.1)
[2020-09-28 06:37] LABS: MAGNESIUM 2.7 mg/dL (1.8-2.4)
--- NOTE | 2020-09-28 07:30 | NUR ---
RECEIVED REPORT FROM FLAVORING MAKER NURSE FOR CONTINUITY OF CARE. PT IN BED, SUPINE POSITION, HOB ELEVATED. ALERT AND FOLLOWS SIMPLE COMMANDS, FLACC 0, NO SOB, NO APPARENT DISTRESS. WITH GEN WEAKNESS. ETT TO VENT: AC/PC FIO2 35% R 22 PEEP 5. ABD SOFT, NON-DISTENDED, NON-TENDER. WITH MEREDITH PICC, RUNNING D5W AT 60CC/HR. CLANCY INTACT AND PATENT. NGT TO TUBE FEEDING. SAFETY PRECAUTIONS IN PLACE. ISOLATION PRECAUTION OBSERVED. WILL CONT TO MONITOR.
[2020-09-28] MEDS: BLOOD GLUCOSE MONITORING 1 DEV DEV FS SCH ×4 (07:56→21:00)
[2020-09-28] MEDS: ZINC SULF 220 MG CAP PO SCH (09:00)
[2020-09-28] MEDS: ASCORBIC ACID 500 MG TAB PO SCH (09:00)
[2020-09-28] MEDS: INSULIN LANTUS 100 UNITS/ML 10 ML VIAL SUBQ SCH (09:00)
--- NOTE | 2020-09-28 09:10 | NUR ---
DUE MORNING MEDS GIVEN. ORAL CARE AND CLANCY CARE DONE. TURNED AND REPOSITIONED PT
[2020-09-28] MEDS: FAMOTIDINE 20 MG/2 ML VIAL IV SCH (10:19)
[2020-09-28] MEDS ORDERED: VANCOMYCIN HCL 1.25 GM in NACL 0.9% 250 ML IV SCH (12:00)
[2020-09-28] MEDS: INSULIN LISPRO SLIDING SCALE 100 UNITS/ML VIAL SUBQ PRN ×3 (12:14→21:00)
--- NOTE | 2020-09-28 15:00 | NUR ---
SEEN BY DR. CARBAJAL. NO NEW ORDERS
[2020-09-28] MEDS: DEXTROSE 5% 1,000 ML IV SCH (16:24)
--- NOTE | 2020-09-28 17:00 | NUR ---
AWAKE, FOLLOWS SIMPLE COMMANDS, FLACC 0, NO APPARENT DISTRESS
--- NOTE | 2020-09-28 19:15 | NUR ---
RECEIVED PATIENT ON BED; AWAKE, ALERT ABLE TO FOLLOW SIMPLE COMMANDS;ORALLY INTUBATED AND VENTILATED AT 35% FIO2, SO2 97%. CARDIACSCOPE SHOWS ON SINUS TACHY HR 105/MIN NO ARRHYTHMIAS SEEN. COMMENCING ON IVF D5W AT 60 ML/HR VIA PICC LINE TO RIGHT UPPER ARM. ABDOMEN IS SOFT, HYPOACTIVE BOWEL SOUNDS. ON CONTINOUS TUBE FEEDING GLUCERNA1.2 AT 65 ML/HR VIA NGT; TOLERATED.
[2020-09-29] VITALS (32 sets, daily range): BP systolic 86–165; BP diastolic 56–96
--- NOTE | 2020-09-29 | NUR ---
NPO POST MIDNIGHT; FOR TRACHEOSTOMY TOMORROW AT 12 NOON .
[2020-09-29] MEDS: Z-GUARD PASTE TP SCH ×2 (04:00→13:00)
--- NOTE | 2020-09-29 04:00 | NUR ---
MORNING BED BATH DONE. WOUND CARE DONE.
[2020-09-29] MEDS: DEXTROSE 5% 1,000 ML IV SCH (04:30)
[2020-09-29] MEDS: PIPERACILLIN/TAZOBACTAM 3.375 GM in DEXTROSE 5% 50 ML IV SCH ×3 (05:52→20:01)
[2020-09-29 06:07] LABS: BASOPHILS # (AUTO) 0.1 K/uL (0.00-0.22); BASOPHILS % (AUTO) 0.7 % (0.0-2.0); EOSINOPHILS # (AUTO) 0.2 K/uL (0-0.4); EOSINOPHILS % (AUTO) 1.3 % (0.0-4.0); HEMATOCRIT 26.7 % (36-52); HEMOGLOBIN 8.9 g/dL (12.0-18.0); LYMPHOCYTES % (AUTO) 7.1 % (20.5-51.1); MEAN CORPUSCULAR HEMOGLOBIN 31 pg (27-31); MEAN CORPUSCULAR HGB CONC 33 g/dL (33-37); MEAN CORPUSCULAR VOLUME 93.4 fL (80-94); MONOCYTES # (AUTO) 0.8 K/uL (0.8-1.0); MONOCYTES % (AUTO) 6.1 % (1.7-9.3); NEUTROPHILS # (AUTO) 11.7 K/uL (1.8-7.7); NEUTROPHILS % (AUTO) 84.8 % (42.2-75.2); PLATELET COUNT (AUTO) 357 K/uL (140-450); RED BLOOD CELL COUNT(AUTO) 2.86 MIL/uL (4.20-6.10); RED CELL DISTRIBUTION WIDTH 13.5 % (11.6-13.7); WHITE BLOOD COUNT (AUTO) 13.8 K/uL (4.8-10.8)
--- NOTE | 2020-09-29 08:00 | NUR ---
RECEIVED BEDSIDE REPORT FROM SEARCH COORDINATOR NURSE, PT IS AWAKE, ABLE TO FOLLOW SIMPLE COMMANDS, YES/NO SIMPLE QUESTIONS. PT IS ETT TO VENT AC V/C FIO2 35%, RATE 22, PEEP 5, SATURATING @ 89%. S1S2 NOTED UPON AUSCULTATION, PT HAS MEREDITH PICC LINE RUNNING DEXTROSE 5% @ 60 ML/HR. BOWEL SOUNDS ACTIVE IN ALL 4 QUADRANTS. NG-TUBE TO LEFT NARE, RESIDUAL: 0ML, PT IS NPO D/T SCHEDULED SX FOR TRACH AND PEG PLACEMENT. CLANCY CATH IN PLACE DRAINING TO GRAVITY, YELLOW/CLOUDY/SEDIMENTS NOTED. SKIN WARM DRY. OPEN SACRAL WOUND/PRESSURE ULCER, OPEN WOUND TO LT FOREARM, AND INCONTINENT DERMATITIS. SAFETY MEASURES IN PLACE, BED LOW AND LOCKED, SIDE RAILS UP, CALL LIGHT WITHIN REACH, WILL CONTINUE TO MONITOR.
[2020-09-29] MEDS: INSULIN LISPRO SLIDING SCALE 100 UNITS/ML VIAL SUBQ PRN ×4 (08:27→20:24)
[2020-09-29] MEDS: BLOOD GLUCOSE MONITORING 1 DEV DEV FS SCH ×4 (08:28→20:23)
[2020-09-29 08:46] LABS: MAGNESIUM 2.7 mg/dL (1.8-2.4); PHOSPHORUS 3.4 mg/dL (2.5-4.9)
--- NOTE | 2020-09-29 09:00 | NUR ---
PT IS NPO FOR TRACH AND PEG PLACEMENT. HELD MORNING NG-TUBE MEDICATIONS AT THIS TIME.
[2020-09-29] MEDS: ZINC SULF 220 MG CAP PO SCH ×2 (09:25→13:53)
[2020-09-29] MEDS: ASCORBIC ACID 500 MG TAB PO SCH ×2 (09:25→13:53)
[2020-09-29] MEDS: FAMOTIDINE 20 MG/2 ML VIAL IV SCH (09:25)
[2020-09-29] MEDS: INSULIN LANTUS 100 UNITS/ML 10 ML VIAL SUBQ SCH (09:28)
[2020-09-29] MEDS ORDERED: LIDOCAINE 1% 500 MG/50 ML VIAL ONE (11:53)
[2020-09-29] MEDS ORDERED: BUPIVACAINE-MPF 0.25% 30 ML VIAL INJ ONE (11:55)
--- NOTE | 2020-09-29 12:10 | NUR ---
SURGICAL TEAM HERE TO STRATEGIES ANALYST THE PATIENT.
[2020-09-29] MEDS ORDERED: ROCURONIUM 50 MG/5 ML VIAL IV ONE (12:20)
[2020-09-29] MEDS ORDERED: PROPOFOL 200 MG/20 ML VIAL IV ONE (12:20)
[2020-09-29] MEDS ORDERED: SEVOFLURANE 250 ML BTL INH ONE (12:20)
--- NOTE | 2020-09-29 13:11 | NUR ---
PATIENT BACK ON THE UNIT.
--- NOTE | 2020-09-29 13:30 | NUR ---
PER DR CARBAJAL, OKAY TO START TUBE FEEDING
--- NOTE | 2020-09-29 13:40 | NUR ---
WOUND CARE EVALUATION PENDING, PER PRIMARY RN, PT. HAS JUST BACK FROM TRACH AND PEG PROCEDURES AND NEED TO BE MORE STABILIZES TO BE TURNED.PER PRIMARY RN SACRALCOCCYX WOUND WITH ODOR AND INFECTED TISSUE, POC DISCUSSED WITH PRIMARY RN AND CHARGE NURSE TO REQUEST SURGEON CONSULT FOR SACRALCOCCYX INFECTED WOUND. RECOMMENDATIONS BASE ON PROTOCOL: -CLEANSE SACRALCOCCYX WITH NS. PAT DRY, APPLY ADAPTIC DRESSING ,COVER WITH DRY DRESSING QD AND PRN IF SOILING -OFFLOAD BILATERAL HEELS BY PLACING PILLOWS UNDER CALVES UNLESS OTHERWISE CONTRAINDICATED -PRESSURE REDISTRIBUTION SURFACE THERAPY -TURN AND REPOSITION Q2H, OFFLOAD SACRALCOCCYX AND BUTTOCKS BY TURNING RIGHT AND LEFT -CONTINUE TO FOLLOW RD RECOMMENDATIONS
--- NOTE | 2020-09-29 14:05 | NUR ---
RAD ON UNIT FOR CHEST XRAY OF TRACH AND PEG PLACEMENT
--- NOTE | 2020-09-29 15:00 | NUR ---
ADMINISTERED MORNING G-TUBE MEDS AND STARTING FEEDING AT 10ML/HR. WILL INCREASE IN 4 HOURS TOLERATED.
--- NOTE | 2020-09-29 15:27 | NUR ---
DR MUNOZ ON UNIT, UPDATED ABOUT PTs CONDITION
--- NOTE | 2020-09-29 16:18 | NUR ---
09/29/20 FOLLOW UP COMPLETED. PLEASE REFER TO NUTRITION ASSESSMENT UNDER CARE ACTIVITY FOR ESTIMATED NUTRITIONAL NEEDS. 1. CONTINUE TF GLUCERNA 1.2@65 MLS/HR - SUFFICIENT TO MEET 100% ESTIMATED NEEDS 2. CONTINUE WATER FLUSH 135MLS Q6HRS PER MD 3. F/U 2-3 DAYS; HIGH RISK DAVEY TOM, RD
--- NOTE | 2020-09-29 17:00 | NUR ---
ROUTINE CARE GIVEN, CHG BATH, CLANCY CARE, VAP ORAL CARE, CLEAN LINENS. NO S/S OF DISTRESS NOTED. SAFETY MEASURES IN PLACE, WILL CONT TO MONITOR.
--- NOTE | 2020-09-29 17:00 | NUR ---
PTs RESIDUAL 0ML. INCREASED TO 20 ML/HR
--- NOTE | 2020-09-29 18:51 | NUR ---
PTs RESIDUAL 0ML, INCREASED TO 30ML/HR, WILL CONT TO ASSESS.
--- NOTE | 2020-09-29 18:54 | NUR ---
TRACH 8, PEG 20, EBL 10, IVF 300, 2ML LOCAL AT SITE
--- NOTE | 2020-09-29 19:30 | NUR ---
RECIEVED ENDORSEMENT FROM DAY SHIFT RM, PT A&0X2/3, RESPONDS TO SIMPLE COMMANDS AND NODS YES/NO, PT LYING SUPINE W/ HOB 30 DEGREES, SIDE RAILS UP AND SAFETY MEASURES IN PLACE, PT AFEBRILE, TRACH TO VENT ACPC FIO2 70% AYE 5 RATE 22, PEG TO GEEDING, SR ON MONITOR, LUNGS SOUNDS DIMINISHED B/L, ABD SOFT AND NON TENDER, SKIN WARM AND DRY TO TOUCH, MEREDITH PICC RUNNING D5, FC IN PLACE DRAINING VIA GRAVITY, PT SHOWING NO SIGNS OF ACUTE DISTRESS, SAFETY MEASURES IN PLACE, WILL CONTINUE TO MONITOR
--- NOTE | 2020-09-29 21:15 | NUR ---
ADMINISTERED 2100H MEDICATIONS PER ORDERED, PT BLOOD GLUCOSE 215, ADMINISTERED 4 UNITS OF HUMALOG PER PROTOCOL
--- NOTE | 2020-09-29 21:56 | NUR ---
2129 TRACH CARE DONE. SUTURES REMOVED AND SMALL GAUZE AT TRACH SITE. NEW HME AND WATERMAN AND TRACH TIE USED
--- NOTE | 2020-09-29 23:14 | NUR ---
PTS DAUGHTER MARTY CALLED FOR UPDATE
[2020-09-30] VITALS (27 sets, daily range): BP systolic 102–185; BP diastolic 42–104
[2020-09-30] MEDS: DEXTROSE 5% 1,000 ML IV SCH ×2 (00:36→14:36)
[2020-09-30] MEDS: Z-GUARD PASTE TP SCH ×2 (00:37→13:34)
[2020-09-30] MEDS: PIPERACILLIN/TAZOBACTAM 3.375 GM in DEXTROSE 5% 50 ML IV SCH ×3 (04:21→21:24)
[2020-09-30 05:10] LABS: ANION GAP 9.2 (8-16); CARBON DIOXIDE 31.5 mmol/L (21-32); CREATININE 1.9 mg/dL (0.6-1.3); POTASSIUM 3.7 mmol/L (3.5-5.1)
[2020-09-30 05:15] LABS: MAGNESIUM 2.8 mg/dL (1.8-2.4); PHOSPHORUS 3.3 mg/dL (2.5-4.9)
[2020-09-30] MEDS: BLOOD GLUCOSE MONITORING 1 DEV DEV FS SCH ×4 (06:31→21:00)
[2020-09-30] MEDS: INSULIN LISPRO SLIDING SCALE 100 UNITS/ML VIAL SUBQ PRN ×4 (06:31→22:48)
--- NOTE | 2020-09-30 07:30 | NUR ---
ENDORSED TO DAY SHIFT RN FOR CONTINUITY OF CARE
--- NOTE | 2020-09-30 07:32 | NUR ---
RECEIVED WINDOW-SIDE REPORT FROM CLOTH FINISHING RANGE OPERATOR NURSE SHUBHAM FOR CONTINUITY OF CARE, PATIENT IS AWAKE AND WATCHING TV ON BED AT THIS TIME, FLACC 0. RESPIRATION EVEN AND UNLABORED ON TRACH TO VENT, FIO2 70%, RATE 22, PEEP 10, LUNGS SOUND DIMINISHED ON AUSCULTATION. IV ON MEREDITH PICC RUNNING D5W AT 60 ML/HR.SKIN WARM TO TOUCH, PRESSURE ULCER ON SACRAL PER REPORT. PATIENT IS INCONTINENT, CLANCY IN PLACE, DRAINING WITH GRAVITY. G-TUBE IN PLACE, RUNNING GLUCERNA 1.2 AT 30 ML/HR THIS TIME. HEAVY EQUIPMENT ENGINE MECHANIC IN PLACE. BED IN LOW POSITION, AND BED LOCKED. ENHANCED DROPLET PRECAUTION AND FALL RISK PROTOCOL IN PLACE.
--- NOTE | 2020-09-30 08:11 | NUR ---
RECEIVED A CALL FROM PATIENT'S DAUGHTER MARTY, MARTY REQUESTS THE ATTENDING MD TO GIVE HER A CALL, EXPLAINED WILL NOTIFY ONCE MD IS ROUNDING, PROVIDED UPDATE, MARTY WAS AWARE.
--- NOTE | 2020-09-30 09:20 | NUR ---
NOTIFIED DR MOSQUEDA THAT DAUGHTER MARTY WOULD LIKE TO SPEAK WITH HER, DR MOSQUEDA WAS AWARE AND SAID SHE WILL EMBRYOLOGY TEACHER HER A CALL.
[2020-09-30] MEDS: ZINC SULF 220 MG CAP PO SCH (09:47)
[2020-09-30] MEDS: ASCORBIC ACID 500 MG TAB PO SCH (09:47)
[2020-09-30] MEDS: FAMOTIDINE 20 MG/2 ML VIAL IV SCH (09:47)
[2020-09-30] MEDS: INSULIN LANTUS 100 UNITS/ML 10 ML VIAL SUBQ SCH (09:55)
--- NOTE | 2020-09-30 09:55 | NUR ---
BLOOD GLUCOSE CHECKED 266,CHECKED PEG RESIDUAL AND RECEIVED 30 ML WHITE RESIDUAL,FLUSHED. ADMINISTERED SCHEDULED MEDS PER MD ORDER,MEDS EDUCATION PROVIDED AND PATIENT NODDED HID HEAD, FLUSHED BEFORE AND AFTER MEDS. PATIENT WAS ABLE TO FOLLOW SIMPLE COMMANDS SUCH SQUEEZE HANDS AND WIGGLE TOES. PROVIDED HYGIENE CARE,CHG BATH,ORAL CARE, SUCTIONING AND CLANCY CARE,PATIENT TOLERATED WELL. PATIENT AWAKE AND WATCHING TV ON BED AT THIS TIME,RESPIRATION EVEN AND UNLABORED ON TRACH TO VENT, AC/PC FIO2 65%, RATE 22, PEEP 10,S SPO2 AT 99%, DENIED PAIN AND ANY DISTRESS NOTED. REPOSITIONED PATIENT AND OFFLOADED PRESSURE WITH PILLOWS, INCREASED G-TUBE FEEDING TO 40 ML/HR. SAFETY MEASURES IN PLACE. BED IN LOW POSITION, HOB ELEVATED 35 DEGREE, CALL LIGHT WITHIN REACH, AND BED LOCKED.
[2020-09-30 12:00] LABS: BASOPHILS # (AUTO) 0.1 K/uL (0.00-0.22); BASOPHILS % (AUTO) 0.5 % (0.0-2.0); EOSINOPHILS # (AUTO) 0.2 K/uL (0-0.4); EOSINOPHILS % (AUTO) 2.1 % (0.0-4.0); HEMATOCRIT 24.7 % (36-52); HEMOGLOBIN 8.1 g/dL (12.0-18.0); LYMPHOCYTES # (AUTO) 0.8 K/uL (2.0-11.5); LYMPHOCYTES % (AUTO) 6.6 % (20.5-51.1); MEAN CORPUSCULAR HEMOGLOBIN 31 pg (27-31); MEAN CORPUSCULAR HGB CONC 33 g/dL (33-37); MEAN CORPUSCULAR VOLUME 93.5 fL (80-94); MONOCYTES % (AUTO) 8.1 % (1.7-9.3); NEUTROPHILS # (AUTO) 9.8 K/uL (1.8-7.7); NEUTROPHILS % (AUTO) 82.7 % (42.2-75.2); PLATELET COUNT (AUTO) 383 K/uL (140-450); RED BLOOD CELL COUNT(AUTO) 2.64 MIL/uL (4.20-6.10); RED CELL DISTRIBUTION WIDTH 13.6 % (11.6-13.7); WHITE BLOOD COUNT (AUTO) 11.8 K/uL (4.8-10.8)
--- NOTE | 2020-09-30 12:08 | NUR ---
CHECKED BLOOG SUGAR AT 1130, 245, 4 UNITS GIVEN FOR COVERAGE PER SLIDING SCALE. NO S/S OF HYPOGLYCEMIA, WILL CONTINUE TO MONITOR.
--- NOTE | 2020-09-30 13:02 | NUR ---
RECEIVED A CALL FROM DAUGHTER MARTY, UPDATED MARTY WITH CURRENT CONDITION, ANSWERED ALL MARTY'S QUESTIONS, MARTY WAS AWARE.
--- NOTE | 2020-09-30 13:20 | NUR ---
DR MOSQUEDA IS ROUNDING ON PATIENT.
--- NOTE | 2020-09-30 13:31 | NUR ---
GAVE 1300 ZOSYN, NO S/S, WILL CONTINUE TO MONITOR.
--- NOTE | 2020-09-30 16:45 | NUR ---
BLOOD SUGAR TAKEN, 149, NO COVERAGE PER SLIDING SCALE Addendum: 09/30/20 at 1809 by Mis Durand RN RN CHARTED ON WRONG PATIENT
--- NOTE | 2020-09-30 16:45 | NUR ---
BLOOD SUGAR TAKEN, 204, 4 UNITS GIVEN PER SLIDING SCALE.
--- NOTE | 2020-09-30 16:55 | NUR ---
PATIENT TURNED, CLANCY CARE PROVIDED, LINEN AND GOWNED CHANGED, WILL CONTINUE TO MONITOR.
--- NOTE | 2020-09-30 16:55 | NUR ---
ASTON CARE PROVIDED, ROHITH NAGY, WILL CONTINUE TO MONITOR. Addendum: 09/30/20 at 1810 by Mis Durand RN RN CHARTED ON WRONG PATIENT
--- NOTE | 2020-09-30 19:56 | NUR ---
ENDORSED PATIENT TO SUPERVISOR HAND SILVERING NURSE ONYE FOR CONTINUITY OF CARE, PATIENT IS IN STABLE CONDITION.
--- NOTE | 2020-09-30 20:20 | NUR ---
RECEIVED PATIENT FROM AM SHIFT. PATIENT WAS SEEN AND ASSESSED. FOUND PATIENT IN SUPINE POSITIONED. PATIENT IS TRACH WITH PORTEX SIZE 8.0 AND SECURED WITH TRACH TIE. PATIENT IS ON VENT SETTINGS: AC/PC 25, RR 22, PEEP 5, FiO2 60% WITH SPO2 OF 98%. AMBU BAG AT BEDSIDE. VENT IS PLUGGED IN RED OUTLET. ALARMS SET AND AUDIBLE TO ENVIRONMENT. SUCTIONED SMALL AMOUNT OF YELLOW THICK SECRETIONS. AIRWAY IS PATENT. AUSCULTATION REVEALS BILATERAL RALES BREATH SOUNDS ON BOTH UPPER AND LOWER BASES. PATIENT IS IN NO APPARENT RESPIRATORY DISTRESS AT THIS TIME. WILL CONTINUE TO MONITOR PATIENT.
[2020-10-01] VITALS (16 sets, daily range): BP systolic 125–193; BP diastolic 67–92
[2020-10-01] MEDS ORDERED: hydrALAZINE 20 MG/ML VIAL IVP SCH (00:55)
[2020-10-01] MEDS: Z-GUARD PASTE TP SCH ×2 (01:00→13:21)
--- NOTE | 2020-10-01 03:00 | NUR ---
TITRATED FiO2 TO 50%. SPO2 96%. PT TOLERATING WELL. RN NOTIFIED. WILL CONTINUE TO MONITOR PT.
[2020-10-01] MEDS: PIPERACILLIN/TAZOBACTAM 3.375 GM in DEXTROSE 5% 50 ML IV SCH ×3 (05:00→21:56)
[2020-10-01] MEDS: DEXTROSE 5% 1,000 ML IV SCH ×2 (06:00→21:24)
[2020-10-01 06:55] LABS: MAGNESIUM 1.5 mg/dL (1.8-2.4)
--- NOTE | 2020-10-01 07:30 | NUR ---
RECEIVED WINDOW-SIDE REPORT FROM COAL DELIVERER NURSE FOR CONTINUITY OF CARE, PATIENT IS RESTING IN BED AT THIS TIME, FLACC 0. RESPONDS TO NAME. ABLE TO FOLLOW SIMPLE COMMANDS. RESPIRATION EVEN AND UNLABORED ON TRACH TO VENT, FIO2 50%, RATE 22, PEEP 10, LUNGS SOUND DIMINISHED ON AUSCULTATION. IV ON MEREDITH PICC NOT RUNNING ANY FLUIDS AT THIS TIME. SKIN WARM TO TOUCH, PRESSURE ULCER ON SACRAL COVER WITH OPTIFOAM, SKIN TEAR ON PERINEAL AREA Z-GUARD APPLIED. PATIENT IS INCONTINENT, CLANCY IN PLACE, DRAINING WITH GRAVITY YELLOW URINE NOTED IN BAG. G-TUBE IN PLACE, RUNNING GLUCERNA 1.2 AT 40 ML/HR THIS TIME. SAFETY DEPOSIT BOXES CUSTODIAN IN PLACE. BED IN LOW POSITION, AND BED LOCKED. ENHANCED DROPLET PRECAUTION AND FALL RISK PROTOCOL IN PLACE.
[2020-10-01] MEDS: BLOOD GLUCOSE MONITORING 1 DEV DEV FS SCH ×4 (07:45→21:00)
[2020-10-01] MEDS: INSULIN LISPRO SLIDING SCALE 100 UNITS/ML VIAL SUBQ PRN ×2 (07:46→12:06)
--- NOTE | 2020-10-01 07:46 | NUR ---
BLOOD GLUCOSE 269, ADMINISTERED 6 UNIT HUMALOG, ASKED IF PATIENT HAS ANY PAIN, HE SHAKES HIS HEAD. PATIENT IS AWAKE AND WATCHING TV ON BED AT THIS TIME. SAFETY MEASURES IN PLACE.
[2020-10-01 08:58] LABS: ANION GAP 11.8 (8-16); CARBON DIOXIDE 28.3 mmol/L (21-32); POTASSIUM 4.1 mmol/L (3.5-5.1)
[2020-10-01] MEDS: ASCORBIC ACID 500 MG TAB PO SCH (09:18)
[2020-10-01] MEDS: INSULIN LANTUS 100 UNITS/ML 10 ML VIAL SUBQ SCH (09:18)
[2020-10-01] MEDS: ZINC SULF 220 MG CAP PO SCH (09:18)
[2020-10-01] MEDS: FAMOTIDINE 20 MG/2 ML VIAL IV SCH (09:19)
--- NOTE | 2020-10-01 09:19 | NUR ---
BLOOD SUGAR TAKEN, 244, CHECKED G-TUBE RESIDUAL RECEIVED < 10 ML. ADMINISTERED SCHEDULED AM MEDS PER MD ORDER, LANTUS, PEPCID, ZINC AND VITAMIN C GIVEN, PROVIDED HYGIENE CARE, CHG BATH, ORAL CARE, SUCTIONING, CLANCY CARE. WITH ASSIST, REPOSITIONED PATIENT AND OFFLOADED PRESSURE WITH PILLOWS, PATIENT TOLERATED CARE, ON VENT TO TRACH, FIO2 40%, PEEP 5, RATE 22, SPO2 98%, BP 146/59, PULSE 108, ASSESSED FOR PAIN, PATIENT SHOOK HIS HEAD, NO SIGNS OF DISTRESS NOTED. SAFETY MEASURES IN PLACE. BED IN LOW POSITION, HOB ELEVATED 35 DEGREE,AND BED IS LOCKED. DAUGHTER MARTY IS FACE TIME WITH PATIENT AT THIS TIME. WILL CONTINUE TO MONITOR.
[2020-10-01] MEDS ORDERED: VANCOMYCIN 1,000 MG in DEXTROSE 5% 250 ML IV SCH (11:00)
--- NOTE | 2020-10-01 11:15 | NUR ---
ASSISTED WOUND CARE NURSE WITH PICTURES OF WOUNDS, WOUND CARE, WOUNDS PHOTOGRAPHED, MEASURED AND IN PATIENTS CHART, NO S/S OF PAIN WHILE CLEANING PATIENT, WHEN ASKED ABOUT PAIN PATIENT SHOOK HEAD, WILL CONTINUE TO MONITOR.
--- NOTE | 2020-10-01 11:45 | NUR ---
CHECKED BLOOD SUGAR, 154, 2 UNITS GIVEN FOR COVERAGE, NO S/S OF HYPOGLYCEMIA, WILL CONTINUE TO MONITOR.
[2020-10-01 12:02] LABS: BASOPHILS # (AUTO) 0.1 K/uL (0.00-0.22); BASOPHILS % (AUTO) 0.7 % (0.0-2.0); EOSINOPHILS # (AUTO) 0.3 K/uL (0-0.4); EOSINOPHILS % (AUTO) 2.7 % (0.0-4.0); HEMATOCRIT 24.1 % (36-52); HEMOGLOBIN 8.1 g/dL (12.0-18.0); LYMPHOCYTES # (AUTO) 0.8 K/uL (2.0-11.5); MEAN CORPUSCULAR HEMOGLOBIN 31 pg (27-31); MEAN CORPUSCULAR HGB CONC 34 g/dL (33-37); MEAN CORPUSCULAR VOLUME 92.8 fL (80-94); MONOCYTES # (AUTO) 0.9 K/uL (0.8-1.0); MONOCYTES % (AUTO) 8.4 % (1.7-9.3); NEUTROPHILS # (AUTO) 8.2 K/uL (1.8-7.7); NEUTROPHILS % (AUTO) 80.2 % (42.2-75.2); PLATELET COUNT (AUTO) 424 K/uL (140-450); RED CELL DISTRIBUTION WIDTH 13.4 % (11.6-13.7); WHITE BLOOD COUNT (AUTO) 10.2 K/uL (4.8-10.8)
--- NOTE | 2020-10-01 12:40 | NUR ---
SPOKE WITH DR KHAN, PER DR KHAN, SHE WILL INPUT AN ORDER FOR DOWNGRADE TO TELE AROUND 1300.
--- NOTE | 2020-10-01 13:08 | NUR ---
RECEIVED CALL FROM DAUGHTER MARTY, UPDATED MARTY WITH CURRENT CONDITION, MARTY WAS AWARE.
--- NOTE | 2020-10-01 14:21 | NUR ---
WOUND CARE EVALUATION NOTE: SKIN ASSESSMENT DONE WITH PRIMARY RN. PHOTO OBTAINED OF CHANGE OF SKIN CONDITION TO SACRALCOCCYX AND INNER BUTTOCKS WITH COVID RELATED SKIN FAILURE. PT. WITH SOFT BM X1 DURING ASSESSMENT. POC DISCUSSED WITH PRIMARY RN. COMORBIDITIES RELATED TO DELAY WOUND HEALING AND FURTHER SKIN BREAKS: BOWEL INCONTINENCE, INFECTION, HYPOXEMIC DECREASE TISSUE PERFUSSION, TISSUE ISCHEMA, DECREASE MOBILITY AND FUNCTIONAL ABILITIES, AND HOB ELEVATED THE MAJORITY OF TIMES DUE TO MEDICAL REASONS. COVID RELATED SKIN FAILURE DUE TO TISSUE LESS TOLERATE TO PRESSURE, SHERING AND POSSIBLE ASSOCIATED WITH MICROVASCULAR INJURY AND TROMBOSIS. INTEGUMENTARY -TRACH JACQUELINE STOMA SKIN INTACT AND MOIST -PEG TUBE JACQUELINE-STOMA SKIN INTACT -UPPER ARMS MULTIPLE ECCHYMOSIS, SKIN INTACT -INCONTINENT ASSOCIATE DERMATITIS (IAD) TO: INNER THIGHS(10X11 CM) AND SCROTAL AREA,SKIN REDNESS, PEELING -PRESSURE ULCER INJURY UN-STAGEABLE SACROCOCCYX, 8X6CM, 100 % YELLOW/ BROWN DRY SLOUGH COLOR, NO ODOR, JACQUELINE-WOUND SKIN DENUDED SURROUNDING REDNESS INDICATED FURTHER DAMAGE RECOMMENDATIONS: -APPLY THIN LAYER OF Z GUARD TO INNER THIGHS AND SCROTAL AREAS BID AND PRN IF SOILING -CLEANSE SACROCOCCYX WITH WOUND CLEANSING SOLUTION,APPLY SOAKED 4X4 GUAZES TO WOUND BED AND COVER WITH DRY DRESSING SECURED WITH TAPE QD AND PRN IF SOILING -APPLY HEEL PROTECTORS TO BOTH HEELS AT ALL TIMES -OFFLOAD BILATERAL HEELS BY PLACING PILLOWS UNDER CALVES UNLESS OTHERWISE CONTRAINDICATED -PRESSURE REDISTRIBUTION SURFACE THERAPY -TURN AND REPOSITION Q2H, OFFLOAD SACRALCOCCYX AND BUTTOCKS BY TURNING RIGHT AND LEFT -CONTINUE TO FOLLOW RD RECOMMENDATIONS ALL ABOVE RECOMMENDATIONS DISCUSSED WITH PRIMARY RN. PLEASE CONTACT WOUND CARE NURSE FOR ANY QUESTION AND CHANGE OF WOUND CONDITION Addendum: 10/01/20 at 1439 by Susie Teague RN (Grace) POC DISCUSSED AND PER PRIMARY RN SURGEON DR. CARBAJAL PENDING EVAL. MAY CONSIDER DEBRIDEMENT.
--- NOTE | 2020-10-01 15:10 | NUR ---
REPORT PROVIDED TO ASSIGNED RN HARVEY, HARVEY WAS AWARE THAT PATIENT WILL BE TRANSFER TO ROOM 122B. WILL TRANSFER PATIENT TO TELE ONCE RT ZENIA BACK FROM CT SCAN WITH ICU BED 3.
--- NOTE | 2020-10-01 15:15 | NUR ---
SPOKE TO DAUGHTER MARTY WHO IS LISTED A CRIME DATA SPECIALIST AND PER MARTY SHE WILL EXPLAINED TO HER MOTHER IN [place]. INFORM OF CHANGE OF SKIN CONDITION AND POC DISCUSSED, ALL QUESTIONS ANSWERED, INFORM OF PENDING SURGEON CONSULT.
--- NOTE | 2020-10-01 15:40 | NUR ---
PT ARRIVED FROM ICU TO TELE FLOOR AT THIS TIME. PT TRANSPORTED BY ICU NURSE AND RT. PT ON TRACH TO VENT FIO2 40% PEEP 5 SPO2 97% 98.6, 84, 22, 168/82, 97% PAIN 0/10. PT HAS GT IN PLACE AND PICC LINE TO RIGHT UPPER ARM. PT HAS DRAINING CLANCY CATH. PER ICU REPORT PT HAS SACRAL ULCER AND PERINEAL SKIN TEAR. WILL CONTINUE TO POC. MD WILL BE NOTIFIED OF MG 1.5
--- NOTE | 2020-10-01 15:54 | NUR ---
TRANSFERRED PATIENT TO ROOM 122B, CELL PHONE AND CHAIN FORMING MACHINE OPERATOR WITH PATIENT, PATIENT BELONGINGS ARE WITH FAMILY, FAMILY AWARE, TELE NURSE ENDORSE TO THE CONTINUITY OF CARE.
--- NOTE | 2020-10-01 16:07 | NUR ---
DEVAUGHN LIRA MADE AWARE OF WOUND CARE TREATMENT. PER WOUND CARE ROXANNE LIRA, FOR SACRAL WOUND, APPLY BETADINE AND PROTECT WITH HEART SHAPE OPTIFOAM. AND FOR S/P DEBRIDEMENT, APPLY THERAHONEY. DEVAUGHN LIRA WAS AWARE.
--- NOTE | 2020-10-01 16:30 | NUR ---
BS CHECK 54 PT WAS GIVEN DEXTROSE IVP PER STANDING PRN ORDER. IVF RESUMED AND WAITING FOR GT FEEDING TO ARRIVE. ALL NEED METS, PROVISION OF CARE PROVIDED.
[2020-10-01] MEDS ORDERED: MAG SULF 2000 MG/WATER PREMIX 50 ML IV ONE (16:45)
--- NOTE | 2020-10-01 18:20 | NUR ---
MG RIDER GIVEN PER MD ORDER DUE TO LOW MG AND RECEIVING GT FEEDING AT 65ML AN HR. PROVISION OF CARE PROVIDED.
--- NOTE | 2020-10-01 19:30 | NUR ---
RECEIVED BEDSIDE REPORT FROM DAY SHIFT NURSE FOR CONTINUITY OF CARE. PT IS AWAKE, LAYING IN SEMI FOWLERS POSITION. TRACH TO VENT WITH FIO2 AT 40%. LUNG SOUNDS DIMINISHED. G TUBE IN PLACE RUNNING G TUBE FEEDING. CLANCY CATH IN PLACE. SKIN IS NOT INTACT. SACRAL WOUND AND SKIN TEAR AT PERINEAL REGION. RIGHT UPPER ARM PICC LINE FUNNING FLUIDS. PLAN OF CARE DISCUSSED. PT IS STABLE AT THIS TIME.
--- NOTE | 2020-10-01 19:31 | NUR ---
PT ENDORSED TO SUPERVISOR WELDING EQUIPMENT REPAIRER RN FOR CONTINUITY OF CARE, PT IS STABLE AT THIS TIME . REMAINS ON TRACH TO VENT WITH FIO2 40% SPO2 97% AT THIS TIME.
--- NOTE | 2020-10-01 21:30 | NUR ---
G TUBE RESIDUAL IS LESS THAN 5 ML. PT IS TOLERATING FEEDING WELL. CLANCY CATH IN PLACE WITH 700 ML OF URINE IN BAG. CLEAR, YELLOW URINE WITH NO SEDIMENT. WOUND ASSESSED AND DRESSING DRY AND INTACT. PILLOW WERE USED TO OFFSET PRESSURE ON BACK AND HEELS. PT IS TRACH TO VENT AT FIO2 40% WITH O2 SAT AT 98%.
[2020-10-01] MEDS: LOSARTAN 50 MG TAB PO SCH (21:56)
--- NOTE | 2020-10-01 23:18 | NUR ---
SPOKE TO DAUGHTER, MARTY, AND INFORMED HER OF THE PLAN OF CARE. INFORMED HER ABOUT THE CONDITION OF THE PT. ANSWERED ALL QUESTIONS. DAUGHTER WOULD LIKE TO SPEAK TO DOCTOR, WILL RELAY TO DAY SHIFT NURSE.
--- NOTE | 2020-10-01 23:30 | NUR ---
PT HAD A BM. LIQUID, BROWN BM. PT WAS CHANGED AND LINENS WERE CHANGED. PT WAS REPOSITIONED. PT TOLERATED IT WELL. G TUBE FEEDING IS INFUSING AND PICC LINE IS INFUSING. PICC LINE IS PATENT AND FLUSHING. BREATHING IS UNLABORED.
[2020-10-02] VITALS (8 sets, daily range): BP systolic 106–150; BP diastolic 56–78
--- NOTE | 2020-10-02 01:30 | NUR ---
O2 SAT IS 97% ON TRACH TO VENT. NO RESPIRATORY DISTRESS NOTED. CLANCY IS DRAINING. G TUBE FEEDING IS RUNNING. PT IS STABLE.
[2020-10-02] MEDS: Z-GUARD PASTE TP SCH ×2 (01:54→12:20)
--- NOTE | 2020-10-02 03:30 | NUR ---
PT IS AWAKE WITH EYES OPEN. PT TRACKS WITH EYES AND NODS WHEN ASKED QUESTIONS. UNABLE TO DETERMINE IF PT IS ALERT. G TUBE RESIDUAL IS LESS THAN 5 ML. PT TOLERATING FEEDING WELL. IV IS INFUSING ORDERED. PILLOWS ARE USED TO OFFLOAD PRESSURE ON BACK AND HEELS. PT IS STABLE.
[2020-10-02] MEDS: PIPERACILLIN/TAZOBACTAM 3.375 GM in DEXTROSE 5% 50 ML IV SCH (04:30)
--- NOTE | 2020-10-02 05:30 | NUR ---
PT HAD ANOTHER BM. PT WAS CHANGED AND REPOSITIONED. PT TOLERATED WELL. O2 SAT IS 97% ON TRACH TO VENT. PT IS STABLE.
[2020-10-02] MEDS: BLOOD GLUCOSE MONITORING 1 DEV DEV FS SCH ×4 (06:26→21:16)
[2020-10-02] MEDS: INSULIN LISPRO SLIDING SCALE 100 UNITS/ML VIAL SUBQ PRN ×4 (06:27→21:19)
--- NOTE | 2020-10-02 07:25 | NUR ---
ENDORSED PT TO DAY SHIFT NURSE FOR CONTINUITY OF CARE. PT IS STABLE AT THIS TIME. BREATHING IS UNLABORED. O2 SAT 98%. PLAN OF CARE DISCUSSED.
--- NOTE | 2020-10-02 07:26 | NUR ---
RECEIVED ENDORSEMENT FROM REVIEW SCHEDULING COORDINATOR RN PT IS STABLE REMAINS ON TRACH TO VENT WITH FIO2 40% WITH SPO2 97%. WILL CONTINUE WITH POC.
[2020-10-02 08:26] LABS: BASOPHILS # (AUTO) 0.1 K/uL (0.00-0.22); BASOPHILS % (AUTO) 0.5 % (0.0-2.0); EOSINOPHILS # (AUTO) 0.4 K/uL (0-0.4); EOSINOPHILS % (AUTO) 4.4 % (0.0-4.0); HEMATOCRIT 22.8 % (36-52); HEMOGLOBIN 7.8 g/dL (12.0-18.0); LYMPHOCYTES # (AUTO) 0.9 K/uL (2.0-11.5); LYMPHOCYTES % (AUTO) 9.3 % (20.5-51.1); MEAN CORPUSCULAR HEMOGLOBIN 32 pg (27-31); MEAN CORPUSCULAR HGB CONC 34 g/dL (33-37); MEAN CORPUSCULAR VOLUME 92.9 fL (80-94); MONOCYTES # (AUTO) 0.7 K/uL (0.8-1.0); MONOCYTES % (AUTO) 7.5 % (1.7-9.3); NEUTROPHILS # (AUTO) 7.3 K/uL (1.8-7.7); NEUTROPHILS % (AUTO) 78.3 % (42.2-75.2); PLATELET COUNT (AUTO) 429 K/uL (140-450); RED BLOOD CELL COUNT(AUTO) 2.46 MIL/uL (4.20-6.10); RED CELL DISTRIBUTION WIDTH 13.8 % (11.6-13.7); WHITE BLOOD COUNT (AUTO) 9.3 K/uL (4.8-10.8)
[2020-10-02 08:44] LABS: ALBUMIN 1.2 g/dL (3.4-5.0); MAGNESIUM 2.6 mg/dL (1.8-2.4); PHOSPHORUS 3.1 mg/dL (2.5-4.9); POTASSIUM 3.5 mmol/L (3.5-5.1); TOTAL BILIRUBIN 0.6 mg/dL (0.0-1.0)
[2020-10-02] MEDS: ZINC SULF 220 MG CAP PO SCH (09:00)
--- NOTE | 2020-10-02 09:30 | NUR ---
SCHEDULED MEDICATIONS GIVEN TOLERATED WELL. PROVISION OF CARE PROVIDED. PT HAS LARGE BM. LUNG SOUNDS DIMINISHED ABD IS SOFT FLAT AND NONTENDER WITH ACTIVE BS X 4. PT HAS DRAINING CLANCY CATH AND RECEIVING GT FEEDING AND 65ML/HR/ TOLERATING FEEDINGS WELL WITH LESS THAN 10ML RESIDUAL. HOB ELEVATED TREATMENT TO SACRAL AREA PROVIDED. PT HAS LEFT UPPER PICC LINE WITH ONLY ONE PORT WORKING. SAFETY MEASURES IN PLACE. WILL CONTINUE WITH POC.
[2020-10-02] MEDS: LOSARTAN 50 MG TAB PO SCH ×2 (10:05→22:10)
[2020-10-02] MEDS: ASCORBIC ACID 500 MG TAB PO SCH (10:16)
[2020-10-02] MEDS: FAMOTIDINE 20 MG/2 ML VIAL IV SCH (10:17)
[2020-10-02] MEDS: INSULIN LANTUS 100 UNITS/ML 10 ML VIAL SUBQ SCH (10:19)
[2020-10-02] MEDS ORDERED: VANCOMYCIN 750 MG in DEXTROSE 5% 250 ML IV SCH (11:00)
[2020-10-02] MEDS: GAUZE TP SCH (12:20)
[2020-10-02] MEDS: DEXTROSE 5% 1,000 ML IV SCH ×2 (12:20→22:19)
--- NOTE | 2020-10-02 12:30 | NUR ---
BS 292 COVERAGED PROVIDED. PROVISION OF CARE PROVIDED AND TURNED. CLANCY CATH DRAINING WITH NO ISSUES.
[2020-10-02 12:32] LABS: ANION GAP 26.9 (8-16); CARBON DIOXIDE 12.6 mmol/L (21-32)
--- NOTE | 2020-10-02 13:13 | NUR ---
10/02/20 RD FOLLOW UP COMPLETED. PLEASE REFER TO NUTRITION ASSESSMENT UNDER CARE ACTIVITY FOR ESTIMATED NUTRITIONAL NEEDS. 1. CONTINUE TF GLUCERNA 1.2@65 MLS/HR - SUFFICIENT TO MEET 100% ESTIMATED NEEDS 2. CONTINUE WATER FLUSH 135MLS Q6HRS PER MD 3. F/U 3-5 DAYS; MODERATE RISK DAVEY TOM, RD
--- NOTE | 2020-10-02 14:30 | NUR ---
DR. KHAN NOTIFIED OF ABNORMAL LABS HGB 7.8 AND BUN 36 NO NEW ORDERS MD ALSO NOTIFIED DAUGHTER WOULD LIKE TO SPEAK TO MD REGARDING FATHERS CONDITION. PHONE NUMBER PROVIDED VIA TEXT. PT REMAINS STABLE
--- NOTE | 2020-10-02 16:40 | NUR ---
BS 296 COVERAGE GIVEN PER MD ORDER. PROVISION OF CARE PROVIDED. CONTINUES TO RECEIVE IVF AND GT FEEDING.
--- NOTE | 2020-10-02 17:44 | NUR ---
PCR FOR COVID COLLECTED AND ROUTED TO LAB
--- NOTE | 2020-10-02 18:40 | NUR ---
FAMILY AT WINDOW VISITING. PT RESPONSES BY SHAKING BED. PT REMAINS ON TRACH TO VENT FIO2 40% ALL NEEDS MET.
--- NOTE | 2020-10-02 19:20 | NUR ---
RECEIVED REPORT FROM DAY SORAYA GABRIEL. PT AWAKE, OPENS EYES SPONTANEOUSLY, TRACH TO VENT, NO S/S RESPIRATORY DISTRESS. FLACC 0. HAS MEREDITH PICC INFUSING D5 AT 65 ML/HR. G TUBE IN PLACE INFUSING TUBE FEEDING ORDERED, TOLERATING WELL. PILLOWS IN PLACE TO OFFLOAD PRESSURE ON BACK AND HEELS. CLANCY CATH IN PLACE, DRAINING YELLOW URINE. SAFETY MEASURES IN PLACE. CALL LIGHT WITHIN REACH. WILL CONTINUE TO MONITOR
--- NOTE | 2020-10-02 22:15 | NUR ---
G TUBE RESIDUAL LESS THAN 5ML. ADMINISTERED SCHEDULED MEDICATION, TOLERATED WELL. WILL CONTINUE TO MONITOR
[2020-10-03] VITALS: BP 129/68
--- NOTE | 2020-10-03 00:15 | NUR ---
CLEANED CHANGED REPOSITIONED PT, TOLERATED WELL. WILL CONTINUE TO MONITOR
[2020-10-03] MEDS: Z-GUARD PASTE TP SCH ×2 (01:45→13:00)
--- NOTE | 2020-10-03 03:06 | NUR ---
PT ASLEEP IN BED. NO S/S ACUTE DISTRESS NOTED. WILL CONTINUE TO MONITOR
[2020-10-03 04:00] VITALS: BP 118/66
[2020-10-03] MEDS: BLOOD GLUCOSE MONITORING 1 DEV DEV FS SCH ×4 (05:59→21:00)
[2020-10-03] MEDS: INSULIN LISPRO SLIDING SCALE 100 UNITS/ML VIAL SUBQ PRN ×4 (06:22→22:29)
--- NOTE | 2020-10-03 06:49 | NUR ---
BLOOD SUGAR 343, GAVE 8 UNITS INSULIN SUBQ, TOLERATED WELL. WILL CONTINUE TO MONITOR
--- NOTE | 2020-10-03 07:04 | NUR ---
PT AWAKE RESTING IN BED. NO S/S ACUTE RESPIRATORY DISTRESS. WILL ENDORSE TO DAY RN FOR CONTINUITY OF CARE. PT IS IN STABLE CONDITION
[2020-10-03 08:00] VITALS: BP 115/73
[2020-10-03 08:45] LABS: ANION GAP 8.9 (8-16); CARBON DIOXIDE 28.9 mmol/L (21-32); CREATININE 2.1 mg/dL (0.6-1.3); POTASSIUM 3.8 mmol/L (3.5-5.1)
[2020-10-03 08:50] LABS: BASOPHILS % (AUTO) 0.4 % (0.0-2.0); EOSINOPHILS # (AUTO) 0.5 K/uL (0-0.4); EOSINOPHILS % (AUTO) 6.3 % (0.0-4.0); HEMATOCRIT 20.7 % (36-52); HEMOGLOBIN 7.1 g/dL (12.0-18.0); LYMPHOCYTES # (AUTO) 0.9 K/uL (2.0-11.5); LYMPHOCYTES % (AUTO) 10.9 % (20.5-51.1); MEAN CORPUSCULAR HEMOGLOBIN 32 pg (27-31); MEAN CORPUSCULAR HGB CONC 34 g/dL (33-37); MEAN CORPUSCULAR VOLUME 93.2 fL (80-94); MONOCYTES # (AUTO) 0.6 K/uL (0.8-1.0); MONOCYTES % (AUTO) 6.8 % (1.7-9.3); NEUTROPHILS # (AUTO) 6.5 K/uL (1.8-7.7); NEUTROPHILS % (AUTO) 75.6 % (42.2-75.2); PLATELET COUNT (AUTO) 439 K/uL (140-450); RED BLOOD CELL COUNT(AUTO) 2.23 MIL/uL (4.20-6.10); RED CELL DISTRIBUTION WIDTH 13.6 % (11.6-13.7); WHITE BLOOD COUNT (AUTO) 8.6 K/uL (4.8-10.8)
[2020-10-03 09:37] LABS: MAGNESIUM 2.9 mg/dL (1.8-2.4); PHOSPHORUS 3.8 mg/dL (2.5-4.9)
[2020-10-03] MEDS: ASCORBIC ACID 500 MG TAB PO SCH (09:39)
[2020-10-03] MEDS: ZINC SULF 220 MG CAP PO SCH (09:40)
[2020-10-03] MEDS: INSULIN LANTUS 100 UNITS/ML 10 ML VIAL SUBQ SCH (09:40)
[2020-10-03] MEDS: LOSARTAN 50 MG TAB PO SCH ×2 (09:40→21:00)
[2020-10-03] MEDS: FAMOTIDINE 20 MG/2 ML VIAL IV SCH (09:40)
[2020-10-03 12:00] VITALS: BP 128/67
--- NOTE | 2020-10-03 12:07 | NUR ---
BLOOD SUGAR 356 AND GIVEN 10 UNITS. PT IN NO APPARENT DISTRESS AND TOLERATING TRACH TO VENT. PT TOLERATED SUCTIONING.
[2020-10-03] MEDS: GAUZE TP SCH (13:00)
--- NOTE | 2020-10-03 14:11 | NUR ---
PT AWAKE WITH NO SIGNS OF APPARENT DISTRESS. PT IS LYING COMFORTABLY IN BED.
[2020-10-03 16:00] VITALS: BP 131/67
--- NOTE | 2020-10-03 16:09 | NUR ---
PT IN NO APPARENT DISTRESS AND TOLERATING TRACH TO VENT AT FiO2 40%.
--- NOTE | 2020-10-03 18:48 | NUR ---
PT IN NO APPARENT DISTRESS AND TOLERATING TRACH TO VENT AT FiO2 40%. PT FAMILY AT BEDSIDE OUTSIDE THE BUILDING AND TURNED TO SEE THEM. PT STABLE AND WILL ENDORSE CARE TO DEDICATED INTERMODAL TRUCK DRIVER RN.
--- NOTE | 2020-10-03 19:00 | NUR ---
RECEIVED PATIENT FROM AM SHIFT NURSE FOR CONTINUITY OF CARE. AAOX3. TRACH TO VENT. RESPIRATIONS EVEN, UNLABORED. VENT SETTINGS: AC/PC FIO2 40% RR 20 PEEP 5. NO S/S RESPIRATORY DISTRESS. SKIN WARM, DRY. RIGHT UPPER ARM PICC NOTED, INFUSING FLUIDS WELL. NO C/O PAIN. NO S/S ACUTE DISTRESS. ABDOMEN SOFT, NONTENDER, NONDISTENDED. BOWEL SOUNDS ACTIVE X4 QUADRANTS. GT PATENT/INTACT. CONTINUES ON ENTERAL FEEDING, TOLERATING WELL. HOB UP 30 DEGREES. NO RESIDUAL NOTED. CLANCY CATHETER PATENT WITH YELLOW URINE DRAINING TO GRAVITY. ISOLATION PRECAUTIONS OBSERVED. SAFETY PRECAUTIONS IN PLACE. FREQUENT ROUNDS BY ALL STAFF.
[2020-10-03] MEDS: DEXTROSE 5% 1,000 ML IV SCH (19:36)
[2020-10-03 20:00] VITALS: BP 118/66
--- NOTE | 2020-10-03 21:00 | NUR ---
DUE MEDS GIVEN. PATIENT RESTING COMFORTABLY IN BED. NO S/S ACUTE DISTRESS. ISOLATION PRECAUTIONS OBSERVED. SAFETY PRECAUTIONS IN PLACE. FREQUENT ROUNDS BY ALL STAFF.
--- NOTE | 2020-10-03 23:00 | NUR ---
PATIENT TURNED AND REPOSITIONED FOR COMFORT. NO C/O PAIN. NO S/S ACUTE DISTRESS. ISOLATION PRECAUTIONS OBSERVED. SAFETY PRECAUTIONS IN PLACE. FREQUENT ROUNDS BY ALL STAFF.
[2020-10-04] VITALS: BP 130/75
[2020-10-04] MEDS: Z-GUARD PASTE TP SCH ×2 (01:00→13:00)
--- NOTE | 2020-10-04 01:00 | NUR ---
MADE ROUNDS. PATIENT IS ASLEEP. NO S/S ACUTE DISTRESS. ISOLATION PRECAUTIONS OBSERVED. SAFETY PRECAUTIONS IN PLACE. FREQUENT ROUNDS BY ALL STAFF.
--- NOTE | 2020-10-04 03:00 | NUR ---
PATIENT IS RESTING COMFORTABLY IN BED. CLANCY CATHETER LEAKING, CHANGED NEEDED. YELLOW URINE DRAINING TO GRAVITY.
[2020-10-04 04:00] VITALS: BP 146/85
--- NOTE | 2020-10-04 05:00 | NUR ---
PATIENT TURNED AND REPOSITIONED. NO S/S ACUTE DISTRESS. ISOLATION PRECAUTIONS OBSERVED. SAFETY PRECAUTIONS IN PLACE. FREQUENT ROUNDS BY ALL STAFF.
[2020-10-04] MEDS: INSULIN LISPRO SLIDING SCALE 100 UNITS/ML VIAL SUBQ PRN ×4 (07:01→21:34)
[2020-10-04] MEDS: BLOOD GLUCOSE MONITORING 1 DEV DEV FS SCH ×4 (07:01→21:34)
--- NOTE | 2020-10-04 07:15 | NUR ---
ENDORSED PATIENT TO AM SHIFT NURSE FOR CONTINUITY OF CARE.
--- NOTE | 2020-10-04 07:20 | NUR ---
RECEIVED PATIENT FROM PLASTER FORM MAKER NURSE. AAOX3. TRACH TO VENT. RESPIRATIONS EVEN, UNLABORED. VENT SETTINGS: AC/PC FIO2 40% RR 20 PEEP 5. NO S/S RESPIRATORY DISTRESS. SKIN WARM, DRY. RIGHT UPPER ARM PICC PATENT AND INTACT, NO C/ GT PATENT/INTACT. NO RESIDUAL NOTED. ON ENTERAL FEEDING, TOLERATING WELL. HOB UP 30 DEGREES. CLANCY CATHETER W/ CLEAR YELLOW URINE.SAFETY PRECAUTIONS IN PLACE. BED IN LOW POSITION AND CALL LIGHT WITHIN REACH. WILL CONTINUE TO MONITOR
[2020-10-04 08:00] VITALS: BP 113/71
[2020-10-04] MEDS: LOSARTAN 50 MG TAB PO SCH ×2 (10:28→21:34)
[2020-10-04] MEDS: ZINC SULF 220 MG CAP PO SCH (10:28)
[2020-10-04] MEDS: ASCORBIC ACID 500 MG TAB PO SCH (10:28)
[2020-10-04] MEDS: FAMOTIDINE 20 MG/2 ML VIAL IV SCH (10:29)
--- NOTE | 2020-10-04 10:30 | NUR ---
ALL SCHEDULED MEDS GIVEN. PT IS STABLE. NO RESPIRATORY DISTRESS NOTED. WILL CONTINUE TO MONITOR.
[2020-10-04] MEDS: INSULIN LANTUS 100 UNITS/ML 10 ML VIAL SUBQ SCH (10:38)
[2020-10-04 11:05] LABS: BASOPHILS % (AUTO) 0.3 % (0.0-2.0); EOSINOPHILS # (AUTO) 0.6 K/uL (0-0.4); HEMATOCRIT 20.2 % (36-52); LYMPHOCYTES # (AUTO) 0.9 K/uL (2.0-11.5); LYMPHOCYTES % (AUTO) 9.2 % (20.5-51.1); MEAN CORPUSCULAR HEMOGLOBIN 32 pg (27-31); MEAN CORPUSCULAR HGB CONC 34 g/dL (33-37); MONOCYTES # (AUTO) 0.8 K/uL (0.8-1.0); MONOCYTES % (AUTO) 8.1 % (1.7-9.3); NEUTROPHILS # (AUTO) 7.6 K/uL (1.8-7.7); NEUTROPHILS % (AUTO) 76.4 % (42.2-75.2); PLATELET COUNT (AUTO) 416 K/uL (140-450); RED BLOOD CELL COUNT(AUTO) 2.18 MIL/uL (4.20-6.10); RED CELL DISTRIBUTION WIDTH 13.8 % (11.6-13.7)
--- NOTE | 2020-10-04 11:06 | NUR ---
BLOOD GLUCOSE CHECK IS AT 317. INSULIN COVERAGE NEEDED. ADMINISTERED 8 UNITS OF INSULIN SQ PER MD ORDERED.
[2020-10-04] MEDS: DEXTROSE 5% 1,000 ML IV SCH (11:09)
[2020-10-04 11:28] LABS: ANION GAP 13.1 (8-16); CARBON DIOXIDE 27.1 mmol/L (21-32); CREATININE 1.9 mg/dL (0.6-1.3); POTASSIUM 4.2 mmol/L (3.5-5.1)
[2020-10-04 11:30] LABS: MAGNESIUM 2.7 mg/dL (1.8-2.4); PHOSPHORUS 3.9 mg/dL (2.5-4.9)
[2020-10-04 12:00] VITALS: BP 157/76
--- NOTE | 2020-10-04 12:00 | NUR ---
SPOKE TO PA REGARDING PATIENT WOUND CONDITION. PA STATES TO CONTINUE LOCAL WOUND CARE. NO DEBRIDEMENT IS CURRENTLY NEEDED.
[2020-10-04 12:01] LABS: HEMOGLOBIN 6.9 g/dL (12.0-18.0)
[2020-10-04] MEDS: GAUZE TP SCH (13:00)
--- NOTE | 2020-10-04 13:00 | NUR ---
CHANGED PATIENT PADS DUE TO BOWEL MOVEMENT. ALSO REMOVED AND REPLACED DRESSING ON SACRAL AREA. PATIENT KEPT CLEAN AND DRY. NO DISTRESS NOTED. WILL CONTINUE TO MONITOR.
--- NOTE | 2020-10-04 13:54 | NUR ---
STABLE RESTING WELL NO DISTRESS NOTED GOOD CHEST RISE DEEP TRACHEAL SUCTION FOR LARGE DUFF SECRETIONS AIRWAY PATENT
--- NOTE | 2020-10-04 14:51 | NUR ---
TUBE FEED RECOMMENDATIONS PER WOUND NURSE NOTES PT HAS UNSTAGEABLE WOUND, KCAL NEEDS HAVE INCREASED. 1. RECOMMEND CONTINUE GLUCERNA 1.2 AT 65 ML/HR X 24 HR 2. RECOMMEND ADD PROSOURCE TID. THIS WILL PROVIDE A TOTAL OF 1992 KCAL AND 139 G OF PROTEIN, MEETING 90% OF ESTIMATED KCAL NEEDS >100% OF ESTIMATED PROTEIN NEEDS. 3. RECOMMEND VIT C AND ZINC ESTIMATED NEEDS ARE MODIFIED/BASED ON IDEAL BODY WEIGHT (73 KG) FOR VENT, WOUND HEALING CALORIES:2190 - 2555 KCAL/DAY (30-35 KCAL/KG) PROTEIN: 88-110 GM PRO/DAY (1.2-1.5 GM/KG)
--- NOTE | 2020-10-04 15:30 | NUR ---
REPLACED EMPTY ENTERAL FEEDING WITH NEW ENTERAL FEEDING. STILL RUNNING AT 65 CC/HR W/ WATER FLUSH AT 135 ML Q6H.
[2020-10-04 16:00] VITALS: BP 138/74
--- NOTE | 2020-10-04 17:34 | NUR ---
BLOOD GLUCOSE CHECK IS AT 189. INSULIN COVERAGE NEEDED. ADMINISTERED 2 UNITS OF INSULIN SQ PER MD ORDERED.
--- NOTE | 2020-10-04 19:30 | NUR ---
ENDORSED TO BIOPHYSICS PROFESSOR NURSE FOR CONTINUITY OF CARE.
--- NOTE | 2020-10-04 19:40 | NUR ---
RECEIVED PATIENT FROM AM SHIFT NURSE FOR CONTINUITY OF CARE. ABLE MAKE SIMPLE NEEDS KNOWN. TRACH TO VENT. RESPIRATIONS EVEN, UNLABORED. VENT SETTINGS: AC/PC FIO2 40% RR 20 PEEP 5. NO S/S RESPIRATORY DISTRESS. SKIN WARM, DRY. RIGHT UPPER ARM PICC NOTED, INFUSING FLUIDS WELL. NO C/O PAIN. NO S/S ACUTE DISTRESS. ABDOMEN SOFT, NONTENDER, NONDISTENDED. BOWEL SOUNDS ACTIVE X4 QUADRANTS. GT PATENT/INTACT. CONTINUES ON ENTERAL FEEDING, TOLERATING WELL. HOB UP 30 DEGREES. NO RESIDUAL NOTED. CLANCY CATHETER PATENT WITH YELLOW URINE DRAINING TO GRAVITY. ISOLATION PRECAUTIONS OBSERVED. SAFETY PRECAUTIONS IN PLACE. FREQUENT ROUNDS BY ALL STAFF
--- NOTE | 2020-10-04 19:50 | NUR ---
PT FOUND RESTING ON AC PC 25 f 22 PEEP 5 40% ALARMS ARE SET AND AUDIBLE AMBUBAG IS PRESENT AT BEDSIDE VENT IS PLUGGED INTO RED OUTLET.
[2020-10-04 20:00] VITALS: BP 127/65
--- NOTE | 2020-10-04 21:30 | NUR ---
DUE MEDS GIVEN. PATIENT RESTING COMFORTABLY IN BED. NO S/S RESPIRATORY DISTRESS. NO S/S ACUTE DISTRESS. CALL LIGHT WITHIN REACH. ISOLATION PRECAUTIONS OBSERVED. SAFETY PRECAUTIONS IN PLACE. FREQUENT ROUNDS BY ALL STAFF
--- NOTE | 2020-10-04 23:55 | NUR ---
I UNIT OF PRBCs STARTED DUE TO HGB 6.9, NO ADVERSE REACTION NOTED FROM PATIENT.
[2020-10-05] VITALS: BP 134/73
[2020-10-05] MEDS: Z-GUARD PASTE TP SCH ×2 (01:15→13:00)
[2020-10-05] MEDS: DEXTROSE 5% 1,000 ML IV SCH (02:04)
--- NOTE | 2020-10-05 02:30 | NUR ---
COMPLETED 1 UNIT OF PRBCs. PATIENT RESTING COMFORTABLY IN BED. NO S/S ACUTE DISTRESS. CALL LIGHT WITHIN REACH. ISOLATION PRECAUTIONS OBSERVED. SAFETY PRECAUTIONS IN PLACE. FREQUENT ROUNDS BY ALL STAFF
[2020-10-05 04:00] VITALS: BP 140/74
--- NOTE | 2020-10-05 04:00 | NUR ---
INCONTINENT CARE RENDERED WITH COLLAR CUTTER AT BEDSIDE. NO S/S ACUTE DISTRESS. CALL LIGHT WITHIN REACH. ISOLATION PRECAUTIONS OBSERVED. SAFETY PRECAUTIONS IN PLACE. FREQUENT ROUNDS BY ALL STAFF
--- NOTE | 2020-10-05 06:00 | NUR ---
PATIENT TURNED AND REPOSITIONED TO MAINTAIN SKIN INTEGRITY. NO S/S ACUTE DISTRESS. CALL LIGHT WITHIN REACH. ISOLATION PRECAUTIONS OBSERVED. SAFETY PRECAUTIONS IN PLACE. FREQUENT ROUNDS BY ALL STAFF
[2020-10-05] MEDS: BLOOD GLUCOSE MONITORING 1 DEV DEV FS SCH ×4 (06:48→20:59)
[2020-10-05] MEDS: INSULIN LISPRO SLIDING SCALE 100 UNITS/ML VIAL SUBQ PRN ×4 (06:49→20:59)
--- NOTE | 2020-10-05 07:20 | NUR ---
ENDORSED PATIENT TO AM SHIFT NURSE FOR CONTINUITY OF CARE.
--- NOTE | 2020-10-05 08:12 | NUR ---
RECEIVED ON A GE CARESCAPE R860 VENTILATOR PLUGGED INTO RED OUTLET TOLERATING WELL WITHOUT ADVERSE REACTIONS NOTE TO A PORTEX DCT #8 AIRWAY SECURED WITH A MARIE TRACH TIE CUFF PRESSURE CHECKED NOTED AMBU BAG AT BEDSIDE LOC AWAKE RESPONSIVE TO CALLING OF LAST NAME GOOD EYE TRA GAVINO AND HEAD MOVEMENT GOOD CHEST RISE DEEP TRACHEAL SUCTION FOR COPIOUS THICK DUFF SECRETIONS AIRWAY PATENT
[2020-10-05 08:57] LABS: BASOPHILS % (AUTO) 0.4 % (0.0-2.0); EOSINOPHILS # (AUTO) 0.7 K/uL (0-0.4); EOSINOPHILS % (AUTO) 5.7 % (0.0-4.0); HEMATOCRIT 23.9 % (36-52); LYMPHOCYTES # (AUTO) 1.1 K/uL (2.0-11.5); LYMPHOCYTES % (AUTO) 8.9 % (20.5-51.1); MEAN CORPUSCULAR HEMOGLOBIN 31 pg (27-31); MEAN CORPUSCULAR HGB CONC 34 g/dL (33-37); MEAN CORPUSCULAR VOLUME 91.7 fL (80-94); MONOCYTES # (AUTO) 0.8 K/uL (0.8-1.0); MONOCYTES % (AUTO) 6.6 % (1.7-9.3); NEUTROPHILS # (AUTO) 9.5 K/uL (1.8-7.7); NEUTROPHILS % (AUTO) 78.4 % (42.2-75.2); PLATELET COUNT (AUTO) 457 K/uL (140-450); RED CELL DISTRIBUTION WIDTH 14.1 % (11.6-13.7); WHITE BLOOD COUNT (AUTO) 12.1 K/uL (4.8-10.8)
[2020-10-05] MEDS: ASCORBIC ACID 500 MG TAB PO SCH (09:25)
[2020-10-05] MEDS: LOSARTAN 50 MG TAB PO SCH ×2 (09:25→20:28)
[2020-10-05] MEDS: ZINC SULF 220 MG CAP PO SCH (09:26)
[2020-10-05] MEDS: INSULIN LANTUS 100 UNITS/ML 10 ML VIAL SUBQ SCH (09:27)
--- NOTE | 2020-10-05 09:30 | NUR ---
SCHEDULED MEDICATIONS GIVEN, EDUCATION PROVIDED. NO RESIDUAL NOTED, PATIENT TOLERATED THE FEEDING WELL. HOB ELEVATED, SAFETY MEASURES IN PLACE, WILL CONTINUE TO MONITOR.
[2020-10-05] MEDS: FAMOTIDINE 20 MG/2 ML VIAL IV SCH (11:02)
--- NOTE | 2020-10-05 11:03 | NUR ---
PEPCID GIVEN VIA IVP, HANG NEW BOTTLE OF FEEDING FORMULA GLUCERNA. PATIENT RESTING IN BED, AWAKE, PLEASANT. NO ACUTE DISTRESS NOTED. WILL CONTINUE TO MONITOR. Addendum: 10/05/20 at 1118 by Idalia Wooten RN DOCUMENTED WRONG PATIENT. Addendum: 10/05/20 at 1119 by Idalia Wooten RN RECORRECT, CORRECT PATIENT.
--- NOTE | 2020-10-05 11:04 | NUR ---
PEPCID GIVEN VIA IVP, HANG NEW BOTTLE OF FEEDING FORMULA GLUCERNA. PATIENT RESTING IN BED, AWAKE, PLEASANT. NO ACUTE DISTRESS NOTED. WILL CONTINUE TO MONITOR.
[2020-10-05] MEDS: GAUZE TP SCH (13:00)
[2020-10-05 14:00] LABS: ANION GAP 11.1 (8-16); CARBON DIOXIDE 28.1 mmol/L (21-32); CREATININE 1.8 mg/dL (0.6-1.3); POTASSIUM 4.2 mmol/L (3.5-5.1)
--- NOTE | 2020-10-05 14:23 | NUR ---
STABLE NO DISTRESS NOTED GOOD CHEST RISE DEEP TRACHEAL SUCTION FOR LARGE SEMI THICK YELLOW SECRETIONS AIRWAY PATENT SATURATION 96% ON FIO2 OF 40% PEEP 5cmH2O TITRATED FIO2 TO 35% CHILD DEVELOPMENT INSTRUCTOR TO NOTIFY SIWEI/RN
[2020-10-05 16:00] VITALS: BP 118/68
--- NOTE | 2020-10-05 17:12 | NUR ---
6 UNITS OF HUMALOG GIVEN FOR BS 299. NO ACUTE DISTRESS NOTED. SAFETY MEASURES IN PLACE. WILL CONTINUE TO MONITOR.
--- NOTE | 2020-10-05 19:25 | NUR ---
ENDORSED PATIENT TO ADVERTISING SUPERVISOR RN FOR CONTINUITY OF CARE. PATIENT IN STABLE CONDITION.
--- NOTE | 2020-10-05 19:26 | NUR ---
RECEIVED REPORT FROM DAY SHIFT NURSE, PT IN BED WITH TRACH CONNECTED TO VENT. SETTINGS FOLLOW FIO2 35, PC 25, R 22, PEEP 5. PT NOT IN DISTRESS. ABDOMEN IS SOFT AND NON-TENDER. PT WITH PEG TUBE IN PLACE, CONTINUOUS FEEDING INFUSING WELL. SKIN IS WARM AND DRY. PT WITH SACRAL ULCER AND PERINEAL MASD. NO S/SX OF PAIN OR DISTRESS, FLACC 0. PT KEPT COMFORTABLE AND SAFE. WILL CONTINUE TO MONITOR. Addendum: 10/06/20 at 0807 by Ron Henry RN CLANCY CATHETER IN PLACE, DRAINING WELL TO YELLOW URINE
[2020-10-05 20:00] VITALS: BP 135/78
--- NOTE | 2020-10-05 20:28 | NUR ---
VS STABLE. SCHEDULED MEDS GIVEN ORDERED. PT NOT IN DISTRESS. FLACC 0. PT TURNED TO SIDE. SAFETY MEASURES IN PLACE. WILL CONTINUE TO MONITOR.
--- NOTE | 2020-10-05 21:00 | NUR ---
RECEIVED PT ON VET SETTING PC 25, R 22, PEEP 5 FIO2 35%. TRACH WITH PORTEX SIZE 8. VENTILATOR IS PLUGGED INTO THE RED OUTLET, AMBU BAG @ BEDSIDE. ALARMS SET AUDIBLE, PT HAS GOOD CHEST RISE AND FALL, B/S IS COARSE AND DIMINISHED @ LOWER BASE. WILL CONTINUE TO MONITOR.
[2020-10-06] VITALS: BP 118/68
--- NOTE | 2020-10-06 00:03 | NUR ---
VS STABLE. TRACH CONNECTED TO VENT. PERINEAL CARE DONE WITH ASSISTANCE OF CHILD WELFARE CONSULTANT. PT TURNED TO SIDE AFTERWARDS. PT TOLERATED ALL CARE PROVIDED. NO S/SX OF DISTRESS NOTED. PT KEPT COMFORTABLE. SAFETY MEASURES IN PLACE. WILL CONTINUE TO MONITOR.
[2020-10-06] MEDS: Z-GUARD PASTE TP SCH ×2 (00:04→13:00)
--- NOTE | 2020-10-06 02:00 | NUR ---
PT ASLEEP. PT REPOSITIONED. TUBE FEEDING INFUSING WELL. NO S/SX OF DISTRESS NOTED. PT KEPT COMFORTABLE. WILL CONTINUE TO MONITOR.
[2020-10-06 04:00] VITALS: BP 128/64
--- NOTE | 2020-10-06 04:06 | NUR ---
VS STABLE. TRACH CONNECTED TO VENT. PT NOT IN DISTRESS. PT TURNED TO SIDE. SAFETY MEASURES IN PLACE. WILL CONTINUE TO MONITOR.
[2020-10-06] MEDS: BLOOD GLUCOSE MONITORING 1 DEV DEV FS SCH ×4 (06:34→21:36)
[2020-10-06] MEDS: INSULIN LISPRO SLIDING SCALE 100 UNITS/ML VIAL SUBQ PRN ×4 (06:35→21:37)
--- NOTE | 2020-10-06 06:45 | NUR ---
BLOOD SUGAR 320, INSULIN COVERAGE GIVEN ORDERED. WILL CONTINUE TO MONITOR.
--- NOTE | 2020-10-06 07:30 | NUR ---
ENDORSED TO DAY SHIFT NURSE FOR CONTINUITY OF CARE.
--- NOTE | 2020-10-06 07:31 | NUR ---
RECEIVED REPORT FROM OCEAN BIOLOGIST RN FOR CONTINUITY OF CARE. PATIENT ASLEEP IN SUPINE POSITION. O2 SAT 98%, TRACH TO VENT. FIO2 35%. HR 86. NO ACUTE DISTRESS NOTED. G TUBE FEEDING INDICATED. SAFETY MEASURES IN PLACE, WILL CONTINUE TO MONITOR.
[2020-10-06 07:58] LABS: BASOPHILS % (AUTO) 0.3 % (0.0-2.0); EOSINOPHILS # (AUTO) 0.7 K/uL (0-0.4); EOSINOPHILS % (AUTO) 6.3 % (0.0-4.0); HEMATOCRIT 22.2 % (36-52); HEMOGLOBIN 7.4 g/dL (12.0-18.0); LYMPHOCYTES # (AUTO) 1.1 K/uL (2.0-11.5); LYMPHOCYTES % (AUTO) 9.8 % (20.5-51.1); MEAN CORPUSCULAR HEMOGLOBIN 31 pg (27-31); MEAN CORPUSCULAR HGB CONC 33 g/dL (33-37); MEAN CORPUSCULAR VOLUME 91.3 fL (80-94); MONOCYTES % (AUTO) 8.2 % (1.7-9.3); NEUTROPHILS # (AUTO) 8.7 K/uL (1.8-7.7); NEUTROPHILS % (AUTO) 75.4 % (42.2-75.2); PLATELET COUNT (AUTO) 441 K/uL (140-450); RED BLOOD CELL COUNT(AUTO) 2.43 MIL/uL (4.20-6.10); RED CELL DISTRIBUTION WIDTH 14.2 % (11.6-13.7); WHITE BLOOD COUNT (AUTO) 11.6 K/uL (4.8-10.8)
[2020-10-06 08:00] VITALS: BP 136/64
[2020-10-06 08:18] LABS: ANION GAP 11.6 (8-16); CARBON DIOXIDE 27.2 mmol/L (21-32); CREATININE 1.9 mg/dL (0.6-1.3); POTASSIUM 4.8 mmol/L (3.5-5.1)
--- NOTE | 2020-10-06 08:40 | NUR ---
RECEIVED ON A [employer] Apps[employer]APE R860 VENTILATOR PLUGGED INTO RED OUTLET TOLERATING WELL WITHOUT ADVERSE REACTIONS NOTED TO A PORTEX DCT #8 AIRWAY SECURED WITH A MARIE TRACH TIE CUFF PRESSURE CHECKED NOTED AMBU BAG AT BEDSIDE LOC RESTING COMFORTABLY EASILY AWAKENS EQUAL CHEST RISE GOOD AERATION THROUGHOUT BILATERAL LUNG SPENCER AIRWAY PATENT SATURATION 100% ON FIO2 OF 35% PEEP 5cmH2O TITRATED FIO2 TO 30% SIWEI/RN NOTIFIED
[2020-10-06] MEDS: ZINC SULF 220 MG CAP PO SCH (09:49)
[2020-10-06] MEDS: ASCORBIC ACID 500 MG TAB PO SCH (09:50)
[2020-10-06] MEDS: LOSARTAN 50 MG TAB PO SCH ×2 (09:50→21:10)
[2020-10-06] MEDS: INSULIN LANTUS 100 UNITS/ML 10 ML VIAL SUBQ SCH (09:51)
[2020-10-06] MEDS: FAMOTIDINE 20 MG/2 ML VIAL IV SCH (10:29)
[2020-10-06 12:00] VITALS: BP 135/73
[2020-10-06] MEDS: GAUZE TP SCH (13:00)
--- NOTE | 2020-10-06 14:42 | NUR ---
AWAKE AND ALERT GOOD EYE TRACKING AND HEAD MOVEMENT EQUAL CHEST RISE GOOD AERATION THROUGHOUT BILATERAL LUNG SPENCER AIRWAY PATENT
--- NOTE | 2020-10-06 15:02 | NUR ---
UPDATED PATIENT'S CONDITION WITH PATIENT'S DAUGHTER BY THE WINDOW. PATIENT IN STABLE CONDITION. VENT SETTING FIO2 30%, O2 SAT 96%. SAFETY MEASURES IN PLACE, WILL CONTINUE TO MONITOR.
[2020-10-06 16:00] VITALS: BP 134/77
--- NOTE | 2020-10-06 17:25 | NUR ---
6 UNITS OF HUMALOG GIVEN FOR BS 262, EDUCATION PROVIDED. UPDATE PATIENT'S DAUGHTER AND , BOTH SITTING BY THE WINDOW. O2 SAT 96%. HR 80. WILL CONTINUE TO MONITOR.
--- NOTE | 2020-10-06 17:50 | NUR ---
ASSISTED CLINICAL CYTOGENETICIST TO CLEAN, CHANGE THE PATIENT. 1 BM NOTED. CLANCY CATHETER EMPTIED. REPOSED THE PATIENT TO RIGHT LATERAL POSITION. MOVED THE FOOT OF THE BED TOWARD TO THE WINDOW, PER PATIENT'S DAUGHTER'S REQUEST. THEY ARE ABLE TO SEE PT'S FACE. SAFETY MEASURES IN PLACE, WILL CONTINUE TO MONITOR.
--- NOTE | 2020-10-06 19:25 | NUR ---
ENDORSED PATIENT TO INSPECTOR HEATING AND REFRIGERATION RN FOR CONTINUITY OF CARE. PATIENT IN STABLE CONDITION.
--- NOTE | 2020-10-06 19:26 | NUR ---
RECEIVED REPORT FROM DAY SHIFT NURSE, PT IN BED WITH TRACH CONNECTED TO VENT. SETTINGS FOLLOW FIO2 30, PC 25, R 22, PEEP 5. PT NOT IN DISTRESS. ABDOMEN IS SOFT AND NON-TENDER. PT WITH PEG TUBE IN PLACE, CONTINUOUS FEEDING INFUSING WELL. SKIN IS WARM AND DRY. PT WITH SACRAL ULCER AND PERINEAL MASD. CLANCY CATHETER IN PLACE DRAINING WELL TO YELLOW URINE. NO S/SX OF PAIN OR DISTRESS, FLACC 0. PT KEPT COMFORTABLE AND SAFE. WILL CONTINUE TO MONITOR.
[2020-10-06 20:00] VITALS: BP 146/73
--- NOTE | 2020-10-06 21:36 | NUR ---
VS STABLE. NO RESIDUALS NOTED ON GTUBE. SCHEDULED MEDS GIVEN ORDERED. PT NOT IN DISTRESS. TRACH CONNECTED TO VENT. PT TURNED AND REPOSITIONED. SAFETY MEASURES IN PLACE. WILL CONTINUE TO MONITOR.
--- NOTE | 2020-10-06 22:04 | NUR ---
NEW FEEDING BAG HUNG. TUBE FEEDING INFUSING WELL. WILL CONTINUE TO MONITOR.
[2020-10-07] VITALS: BP 142/70
--- NOTE | 2020-10-07 00:19 | NUR ---
VS STABLE. TRACH CONNECTED TO VENT. PERINEAL CARE DONE WITH STRIP WINDER. PT TOLERATED CARE WELL. NO S/SX OF DISTRESS NOTED. SAFETY MEASURES IN PLACE. WILL CONTINUE TO MONITOR.
[2020-10-07] MEDS: Z-GUARD PASTE TP SCH ×2 (01:32→15:12)
--- NOTE | 2020-10-07 02:20 | NUR ---
PT SUCTIONED, ORAL CARE GIVEN WELL. PT TOLERATED CARE PROVIDED. PT REPOSITIONED AND TURNED TO SIDE. SAFETY MEASURES IN PLACE. CALL LIGHT WITHIN REACH. WILL CONTINUE TO MONITOR.
[2020-10-07 04:00] VITALS: BP 152/84
--- NOTE | 2020-10-07 04:32 | NUR ---
VS STABLE. PERINEAL CARE, SKIN CARE, CATHETER CARE, WOUND CARE DONE WITH ECONOMICS ANALYST. PT TOLERATED CARE WELL. PT NOT IN DISTRESS. SAFETY MEASURES IN PLACE. WILL CONTINUE TO MONITOR.
[2020-10-07 06:22] LABS: BASOPHILS # (AUTO) 0.1 K/uL (0.00-0.22); BASOPHILS % (AUTO) 0.4 % (0.0-2.0); EOSINOPHILS # (AUTO) 0.7 K/uL (0-0.4); EOSINOPHILS % (AUTO) 5.9 % (0.0-4.0); HEMOGLOBIN 8.3 g/dL (12.0-18.0); LYMPHOCYTES # (AUTO) 1.4 K/uL (2.0-11.5); LYMPHOCYTES % (AUTO) 11.7 % (20.5-51.1); MEAN CORPUSCULAR HEMOGLOBIN 31 pg (27-31); MEAN CORPUSCULAR HGB CONC 33 g/dL (33-37); MEAN CORPUSCULAR VOLUME 92.7 fL (80-94); MONOCYTES % (AUTO) 8.5 % (1.7-9.3); NEUTROPHILS # (AUTO) 8.9 K/uL (1.8-7.7); NEUTROPHILS % (AUTO) 73.5 % (42.2-75.2); PLATELET COUNT (AUTO) 502 K/uL (140-450); RED CELL DISTRIBUTION WIDTH 14.4 % (11.6-13.7); WHITE BLOOD COUNT (AUTO) 12.1 K/uL (4.8-10.8)
[2020-10-07] MEDS: BLOOD GLUCOSE MONITORING 1 DEV DEV FS SCH ×2 (06:30→13:27)
[2020-10-07] MEDS: INSULIN LISPRO SLIDING SCALE 100 UNITS/ML VIAL SUBQ PRN ×2 (06:31→13:25)
--- NOTE | 2020-10-07 07:30 | NUR ---
RECEIVED REPORT FROM NIGHT NURSE FOR CONTINUITY. PT TRACH TO VENT. PT HAS MEREDITH PICC SALINE LOCK. PT HAS SACRAL WOUND. PT ON G-TUBE FEEDING INFUSING GLUCERNA AT 65ML/H WITH WATER FLUSH 135Q6H. SAFETY MEASURES IN PLACE, WILL CONTINUE TO MONITOR.
--- NOTE | 2020-10-07 07:44 | NUR ---
ENDORSED TO DAY SHIFT NURSE FOR CONTINUITY OF CARE
[2020-10-07 08:59] LABS: CARBON DIOXIDE 25.2 mmol/L (21-32); CREATININE 1.9 mg/dL (0.6-1.3); POTASSIUM 4.2 mmol/L (3.5-5.1)
[2020-10-07] MEDS: ASCORBIC ACID 500 MG TAB PO SCH (08:59)
[2020-10-07] MEDS: ZINC SULF 220 MG CAP PO SCH (08:59)
[2020-10-07] MEDS: LOSARTAN 50 MG TAB PO SCH (08:59)
[2020-10-07] MEDS: INSULIN LANTUS 100 UNITS/ML 10 ML VIAL SUBQ SCH (09:08)
--- NOTE | 2020-10-07 09:09 | NUR ---
ADMINISTERED SCHEDULED MEDICATION, MEDICATION EDUCATION PROVIDED. PT TOLERATED WELL. PT IS STABLE, WILL CONTINUE TO MONITOR
[2020-10-07] MEDS ORDERED: VITC500 PO (12:13)
[2020-10-07] MEDS ORDERED: ZINC220C28 PO (12:13)
[2020-10-07] MEDS ORDERED: LOSA50TA1 PO (12:13)
[2020-10-07] MEDS: FAMOTIDINE 20 MG/2 ML VIAL IV SCH (13:26)
--- NOTE | 2020-10-07 13:34 | NUR ---
ADMINISTERED SCHEDULED MEDICATION, 2 UNITS OF HUMALOG FOR GLUCOSE OF 153, MEDICATION EDUCATION PROVIDED. PT TOLERATED WELL. PT IS STABLE, WILL CONTINUE TO MONITOR.
[2020-10-07] MEDS: GAUZE TP SCH (15:12)
--- NOTE | 2020-10-07 15:15 | NUR ---
CALLED REPORT TO SALVADOR AND GAVE REPORT TO JAMES, PT WILL GO TO BED 24A. QUANG, ELECTROMECHANICAL ASSEMBLER, SPOKE WITH CHYNA AND RECEIVED THE GO AHEAD TO SEND PT WITH CURRENT VENT SETTINGS.
--- NOTE | 2020-10-07 15:41 | NUR ---
PT PLACED ON AC 22 VT500 PEEP 5 FIO2 30% FOR TRIAL TO SEE IF PT CAN TOLERATED AC MODE TO BE TRANSFERRED BACK TO [facility] [place] SORAYA CALIXTO NOTIFIED
--- NOTE | 2020-10-07 16:09 | NUR ---
PT DISCHARGED TO [facility] [place] [place]. [facility] TRANSPORTED THE PT TO [facility] [place] [place]. PT STABLE,
== END 2020-10-07 16:06 | DRG 5 ==
LOC: MED 23:56 → MTU 09-12 02:20 → MIC 09-17 18:39 → MTU 10-01 15:40
PROVIDERS: ADMIT Family Medicine; ATTEND Family Medicine
PROC: 0BH17EZ Insertion of Endotracheal Airway into Trachea, Via Natural or Artificial Opening (ICD-10-PCS; principal; 2020-09-12)
PROC: 5A1955Z Respiratory Ventilation, Greater than 96 Consecutive Hours (ICD-10-PCS; 2020-09-12)
PROC: XW033E5 Introduction of Remdesivir Anti-infective into Peripheral Vein, Percutaneous Approach, New Technology Group 5 (ICD-10-PCS; 2020-09-12)
PROC: 02HV33Z Insertion of Infusion Device into Superior Vena Cava, Percutaneous Approach (ICD-10-PCS; 2020-09-15)
PROC: B548ZZA Ultrasonography of Superior Vena Cava, Guidance (ICD-10-PCS; 2020-09-15)
PROC: 30233K1 Transfusion of Nonautologous Frozen Plasma into Peripheral Vein, Percutaneous Approach (ICD-10-PCS; 2020-09-27)
PROC: 0DH63UZ Insertion of Feeding Device into Stomach, Percutaneous Approach (ICD-10-PCS; 2020-09-29)
PROC: 0B110F4 Bypass Trachea to Cutaneous with Tracheostomy Device, Open Approach (ICD-10-PCS; 2020-09-29)
PROC: 30233N1 Transfusion of Nonautologous Red Blood Cells into Peripheral Vein, Percutaneous Approach (ICD-10-PCS; 2020-10-04)
DX: A41.89 Other specified sepsis (principal); U07.1 COVID-19; N17.0 Acute kidney failure with tubular necrosis; E87.1 Hypo-osmolality and hyponatremia; E43 Unspecified severe protein-calorie malnutrition; G93.40 Encephalopathy, unspecified; L89.159 Pressure ulcer of sacral region, unspecified stage; I46.9 Cardiac arrest, cause unspecified; J12.82 Pneumonia due to coronavirus disease 2019; R65.21 Severe sepsis with septic shock; E11.10 Type 2 diabetes mellitus with ketoacidosis without coma; E78.00 Pure hypercholesterolemia, unspecified; E78.5 Hyperlipidemia, unspecified; E83.39 Other disorders of phosphorus metabolism; E86.0 Dehydration; R74.01 Elevation of levels of liver transaminase levels; D68.59 Other primary thrombophilia; R13.10 Dysphagia, unspecified; Z79.4 Long term (current) use of insulin; Z68.24 Body mass index [BMI] 24.0-24.9, adult; E87.6 Hypokalemia; E83.51 Hypocalcemia; J80 Acute respiratory distress syndrome; G93.41 Metabolic encephalopathy
CPT/HCPCS: 36415; 36600; 70450; 71045; 80048; 80053; 80202; 81001; 82150; 82550; 82553; 82728; 82803; 82948; 83036; 83605; 83615; 83690; 83735; 83880; 84100; 84436; 84439; 84443; 84479; 84484; 85025; 85379; 85384; 85610; 85651; 85730; 86140; 86886; 86900; 86901; 86920; 87040; 87070; 87086; 87205; 87420; 87804; 93005; 94003; 96365; 96367; 96375; 97110; 97161-GP; 99291; C9113; J0360; J0456; J0696; J1100; J1644; J1815; J1940; J2001; J2060; J2543; J2704; J3010; J3370; J3475; J3480; J3490; J7030; J7060; P9016; P9017; U0003

== ENCOUNTER 2020-10-11 08:59 | Emergency (ER) | payer MEDICAID, SELFPAY ==
[~2020-10-11] VITALS: Ht 172.7 cm; Wt 85.7 kg
[~2020-10-11 08:59] MED LIST: LOSA50TA1 PO; VITC500 PO; ZINC220C28 PO
--- NOTE | 2020-10-11 08:59 | NUR ---
Patient BIBA ALS from [facility] [place], transferred to bed 1. RT and RN are evaluating the patient at bedside.
[2020-10-11 09:00] VITALS: BP 83/52
--- NOTE | 2020-10-11 09:05 | NUR ---
55 Y/O M BIBA FROM [facility] [place] WITH A C/C OF DESATURATION ON [id number] COLLAR. PER EMS, FACILITY STATES PT O2 SATURATION 75% ON VENTILATOR. BVM PROVIDED FROM EMS WITH O2 SAT 96%. EMS STATES MUCUS IN TRACH AND HR OF 120. PT ARRIVED TO ER WITH 98% SATURATION WITH NORMAL VENT SETTINGS. PT TRANSFERRED TO BED WITH RT TAKING OVER AIRWAY MANAGEMENT. LUNG SOUNDS RHONCHI MID AND LOWER LOBES. CREW STATES PT HAD CARDIAC ARREST AND COVID IN AUGUST. BED LOCKED IN LOWEST POSITION, SIDE RAILS X 2, CALL LIGHT IN REACH HX: CARDIAC ARREST, COVID (+), HTN, DM NKA
[2020-10-11 09:10] VITALS: BP 83/52
--- NOTE | 2020-10-11 09:10 | NUR ---
BIBA FOR SOB AND PLACED ON CRAIG VENT SETTINGS AC22 VT500 PEEP 5 FIO2 100% ALARMS ON AND AUDIBLE AND VENT IS PLUGGED INTO RED OUTLET, B\S ARE DIMINISHED BILATERALLY BVM AT HOB AND PT IS TRACH WITH PORTEX 8
--- NOTE | 2020-10-11 09:18 | NUR ---
BLOOD CULTURES COLLECTED AND WALKED TO LAB. LEFT WITH SCREEN TENDER HELPER
--- NOTE | 2020-10-11 09:21 | NUR ---
URINE SAMPLE COLLECTED AND HANDED TO IAIN BUTLER
[2020-10-11] MEDS: NACL 0.9% 500 ML IV SCH ×2 (09:32→09:40)
--- NOTE | 2020-10-11 09:34 | NUR ---
ABG DRAWN ON LR WITHOUT INCIDENT AND RESULTS GIVEN TO AND FIO2 TO WAS DECREASED TO 50%
--- NOTE | 2020-10-11 09:35 | NUR ---
RAD AT BEDSIDE
[2020-10-11 09:36] LABS: BASOPHILS # (AUTO) 0.1 K/uL (0.00-0.22); BASOPHILS % (AUTO) 0.3 % (0.0-2.0); EOSINOPHILS # (AUTO) 0.3 K/uL (0-0.4); EOSINOPHILS % (AUTO) 2.2 % (0.0-4.0); HEMATOCRIT 27.8 % (36-52); LYMPHOCYTES # (AUTO) 0.8 K/uL (2.0-11.5); LYMPHOCYTES % (AUTO) 5.4 % (20.5-51.1); MEAN CORPUSCULAR HEMOGLOBIN 30 pg (27-31); MEAN CORPUSCULAR HGB CONC 32 g/dL (33-37); MEAN CORPUSCULAR VOLUME 91.8 fL (80-94); MONOCYTES # (AUTO) 0.9 K/uL (0.8-1.0); MONOCYTES % (AUTO) 6.6 % (1.7-9.3); NEUTROPHILS # (AUTO) 12.3 K/uL (1.8-7.7); NEUTROPHILS % (AUTO) 85.5 % (42.2-75.2); PLATELET COUNT (AUTO) 513 K/uL (140-450); RED BLOOD CELL COUNT(AUTO) 3.03 MIL/uL (4.20-6.10); RED CELL DISTRIBUTION WIDTH 13.8 % (11.6-13.7); WHITE BLOOD COUNT (AUTO) 14.4 K/uL (4.8-10.8)
--- NOTE | 2020-10-11 09:51 | NUR ---
GAVE UPDATE TO PTS DAUGHTER LEWIS VIA TELEPHONE
[2020-10-11 10:05] LABS: ALBUMIN 1.8 g/dL (3.4-5.0); ANION GAP 8.6 (8-16); CARBON DIOXIDE 32.8 mmol/L (21-32); CREATININE 1.6 mg/dL (0.6-1.3); POTASSIUM 4.4 mmol/L (3.5-5.1); PROTHROMBIN TIME 10.8 secs (10.8-13.4); TOTAL BILIRUBIN 0.4 mg/dL (0.0-1.0)
[2020-10-11 11:29] LABS: APPEARANCE,URINE HAZY (CLEAR); BILIRUBIN,URINE NEGATIVE (NEGATIVE); BLOOD, URINE 1+ (NEGATIVE); COLOR,URINE YELLOW (YELLOW); LEUKOCYTE ESTERASE ,URINE 2+ (NEGATIVE); NITRITE, URINE NEGATIVE (NEGATIVE); UGLUCOSE NEGATIVE (NEGATIVE)
--- NOTE | 2020-10-11 11:35 | NUR ---
PT REPOSITIONED TO RIGHT SIDE. SENIOR IT AUDITOR/PULSE OX IN PLACE, BED LOCKED AND IN LOWEST POSITION. SIDE RAILS X2.
[2020-10-11 11:48] LABS: RBC,URINE 0-5 /HPF (0-5); WBC,URINE TOO MANY TO COUNT /HPF (0-5)
[2020-10-11 11:49] VITALS: BP 114/77
[2020-10-11 11:49] LABS: YEAST,URINE Moderate /HPF (None Seen)
[2020-10-11] MEDS ORDERED: LEVOFLOXACIN 500 MG/D5W PREMIX 100 ML IV ONE (11:55)
--- NOTE | 2020-10-11 12:05 | NUR ---
LAB AT BEDSIDE
--- NOTE | 2020-10-11 12:08 | NUR ---
RT AT BEDSIDE
--- NOTE | 2020-10-11 13:29 | NUR ---
DR. TURNER TEXTED TO REQUESTED TO CALL PT'S DAUGHTER MARTY.
--- NOTE | 2020-10-11 13:35 | NUR ---
PT REPOSITIONED TO LEFT SIDE. PHARMACEUTICAL BOTANIST/PULSE OX IN PLACE, BED LOCKED AND IN LOWEST POSITION. SIDE RAILS X2.
--- NOTE | 2020-10-11 14:04 | NUR ---
GAVE REPORT TO SORAYA PARRISH AT [facility] [place]. MADE AWARE THAT TRANSPORT ETA IS 30MIN.
--- NOTE | 2020-10-11 14:38 | NUR ---
[facility] at bedside for return transportation to [facility].
[2020-10-11 14:40] VITALS: BP 161/89
--- NOTE | 2020-10-11 14:40 | NUR ---
Patient discharged with v/s stable. Written and verbal after care instructions given and explained. Patient alert, oriented and verbalized understanding of instructions. Ambulance Transport with to skilled nursing. All questions addressed prior to discharge. ID band removed. Patient advised to follow up with PMD. Rx of LEVAQUIN given. Patient educated on indication of medication including possible reaction and side effects. Opportunity to ask questions provided and answered.
== END 2020-10-11 14:40 | disposition home or self-care (01) ==
LOC: MED 08:59
DX: N39.0 Urinary tract infection, site not specified (principal); J18.9 Pneumonia, unspecified organism; E11.9 Type 2 diabetes mellitus without complications; Z90.49 Acquired absence of other specified parts of digestive tract; Z79.899 Other long term (current) drug therapy
CPT/HCPCS: 36415; 36600; 71045; 80053; 81001; 82803; 83605; 83880; 84484; 85025; 85610; 85730; 87040; 87086; 93005; 96361; 96365; 99285; J1956